=== PATIENT | female | born 1940 | race Hispanic/Latino ===

== ENCOUNTER 2016-12-29 22:42 | Inpatient (IN) | payer MEDICARE ==
[2016-12-29] MEDS ORDERED: Sodium Chloride 0.9% 1,000 ML IV STA (23:20)
--- NOTE | 2016-12-29 23:25 | ED PDOC ---
HPI: Trauma/Fall - HPI Time Seen by Provider: 12/29/16 22:50 Chief Complaint (Nursing): Trauma Chief Complaint (Provider): Fall History Per: Patient History/Exam Limitations: no limitations Onset/Duration Of Symptoms: Days (1week ago) Injury Occurred (Timing): Days Ago: (7) Severity: Moderate Associated Symptoms: Other (pt unsure of cause of fall) Additional Complaint(s): The patient is a 76 years old female, PMHx of left kidney removal, presents to the ED for evaluation s/p fall one week ago. Patient reports she was on her way to the bathroom and states she does not recall how she fell; patient reports she was on the floor of her bathroom for one week but she isnt sure if she was there for a longer period of time. She states she attempted to rest and gain strength in order to get up but was unable to do that so she proceeded to crawl to a phone and called 911 for help. She reports injuring her head but denies any headache at the moment. She also reports associated right shoulder pain. She denies any hip pain, chest pain, abdominal pain, nausea, vomiting, diarrhea and fever. She currently offers no additional medical complaints. PCP: None provided Past Medical History Reviewed: Historical Data, Nursing Documentation, Vital Signs Vital Signs: Last Vital Signs Temp 98.8 F 12/29/16 22:45 Pulse 89 12/29/16 22:45 Resp 20 12/29/16 22:45 BP 167/111 H 12/29/16 22:45 Pulse Ox 97 12/29/16 22:45 - Medical History PMH: No Chronic Diseases - Surgical History Other surgeries: Left kidney removal - Family History Family History: States: Unknown Family Hx - Living Arrangements Living Arrangements: Alone - Social History Current smoker - smoking cessation education provided: No Alcohol: None Drugs: Denies - Home Medications Home Medications: Ambulatory Orders Medication Instructions Recorded No Known Home Med 12/29/16 - Allergies Allergies/Adverse Reactions: Allergies Allergy/AdvReac Type Severity Reaction Status Date / Time No Known Allergies Allergy Verified 12/29/16 22:48 Review of Systems ROS Statement: Except As Marked, All Systems Reviewed And Found Negative Constitutional: Negative for: Fever Cardiovascular: Negative for: Chest Pain Gastrointestinal: Negative for: Nausea, Vomiting, Abdominal Pain, Diarrhea Musculoskeletal: Positive for: Shoulder Pain (right) Neurological: Negative for: Headache Physical Exam - Reviewed Nursing Documentation Reviewed: Yes Vital Signs Reviewed: Yes - Physical Exam Appears: Positive for: Well, Non-toxic, No Acute Distress Head Exam: Positive for: ATRAUMATIC, NORMAL INSPECTION, NORMOCEPHALIC Skin: Positive for: Normal Color, Warm, Dry (dry mucus membranes) Eye Exam: Positive for: Normal appearance, EOMI, PERRL ENT: Positive for: Normal ENT Inspection Neck: Positive for: Normal, Supple Cardiovascular/Chest: Positive for: Regular Rate, Rhythm Respiratory: Positive for: Normal Breath Sounds. Negative for: Respiratory Distress Gastrointestinal/Abdominal: Positive for: Normal Exam, Soft. Negative for: Tenderness Back: Positive for: Other (redness noted to midline sacrum and right gluteus; ecchymosis noted on right shoulder) Extremity: Positive for: Normal ROM. Negative for: Deformity, Swelling Neurologic/Psych: Positive for: Alert, Oriented. Negative for: Motor/Sensory Deficits - Laboratory Results Result Diagrams: 12/29/16 23:36 12/29/16 23:36 - ECG ECG: Positive for: Interpreted By Me, Viewed By Wi ECG Rhythm: Positive for: Normal QRS, Normal ST Segment, Sinus Rhythm. Negative for: ST/T Changes Rate: 65 O2 Sat by Pulse Oximetry: 97 (RA) Pulse Ox Interpretation: Normal - Radiology X-Ray: Interpreted by Me, Viewed By Wi X-Ray Interpretation: No Acute Disease - Other Rad CXR X-Ray: Interpreted by Me, Viewed By Wi X-Ray Interpretation: No acute findings Pelvis X-Ray: Interpreted by Wi, Viewed By Wi X-Ray Interpretation: no acute findings Medical Decision Making Medical Decision Making: Time: 2309 Differential: r/o dehydration, rhabdomyosis, intercranial bleeding Impression: Syncope, head injury Plan: * CT C-Spine * CT Head * Bloodwork * CXR * Urinalysis * IV Fluids Time: 1219 CT Head FINDINGS: The ventricles are dilated. The right lateral ventricle measures 3 cm in diameter and the left lateral ventricle measures 3.4 cm. The third ventricle measures 2.2 cm. I suspect this is a chronic finding.the rivers-white matter differentiation is preserved. If there are prior studies, I would be happy to correlate them. No intracranial hemorrhage. No extra axial collections. No intracranial edema. No fluid in the sinuses or mastoid air cells. No depressed fractures. IMPRESSION: No acute intracranial injury. Time: [address] Constantino who will admit the patient to his service. Time: 1235 CT C-Spine FINDINGS: There are degenerative changes in the osseous structures.Osteophyte formation and articular facet joint hypertrophy is present. The vertebral bodies and facet joints are well aligned. The vertebral body height is well maintained. No subluxation. No fractures. There is a round 1.4 cm calcification along the lateral aspect of the left thyroid. It does not appear associated with the adjacent vasculature. Appearance suggests benignity. IMPRESSION: No acute injury. Scribe Attestation: Documented by Evonne Longoria acting as a scribe for Glenys Cox MD. Provider Attestation: All medical record entries made by the Scribe were at my direction and personally dictated by me. I have reviewed the chart and agree that the record accurately reflects my personal performance of the history, physical exam, medical decision making, and the department course for this patient. I have also personally directed, reviewed, and agree with the discharge instructions and disposition. Disposition - Clinical Impression Clinical Impression: Fall, Syncope, Dehydration, Rhabdomyolysis - Patient ED Disposition Is Patient to be Admitted: Yes Discussed With DrMiles: Cameron Constantino Doctor Will See Patient In The: Hospital Counseled Patient/Family Regarding: Studies Performed, Diagnosis - Disposition Disposition Time: 00:24 Condition: FAIR - Pt Status Changed To: Hospital Disposition Of: Inpatient - Admit Certification Admit to Inpatient:: After my assessment, the patient will require hospitalization for at least two midnights. This is because of the severity of symptoms shown, intensity of services needed, and/or the medical risk in this patient being treated as an outpatient. - POA Present On Arrival: Falls Or Trauma
[2016-12-29 23:39] LABS: BASO # 0.1 K/uL (0.0-0.2); EOS # 0.2 K/uL (0.0-0.7); EOS % 1.5 % (0.0-4.0); HEMOGLOBIN 13.2 g/dL (12.0-16.0); LYMPH # 1.9 K/uL (1.0-4.3); LYMPH % 15.4 % (20.0-40.0); MEAN CELL VOLUME 84.5 fl (81.0-99.0); MEAN CORPUSCULAR HEMOGLOBIN 27.3 pg (27.0-31.0); MEAN CORPUSCULAR HGB CONC 32.3 g/dL (33.0-37.0); MEAN PLATELET VOLUME 7.8 fl (7.2-11.7); MONO # 0.9 K/uL (0.0-0.8); MONO % 7.5 % (0.0-10.0); NEUT % 74.6 % (50.0-75.0); NRBC % 0.1 % (0.0-0.0); RBC 4.85 Mil/uL (3.80-5.20); RED CELL DISTRIBUTION WIDTH 14.9 % (11.5-14.5)
[2016-12-29 23:53] LABS: ALB/GLOB RATIO 0.9 (1.0-2.1); ALBUMIN 4.2 g/dL (3.5-5.0); ALT/SGPT 53 U/L (9-52); AST/SGOT 71 U/L (14-36); BLOOD UREA NITROGEN 48 mg/dl (7-17); CALCIUM 9.6 mg/dL (8.4-10.2); GFR AFRICAN-AMERICAN > 60; GFR NON-AFRICAN AMERICAN > 60
--- NOTE | 2016-12-30 00:13 | CT ---
EXAM: CT Head Without Intravenous Contrast CLINICAL HISTORY: 76 years old, female; Pain; Headache; Headache not specified; Additional info: Head injury TECHNIQUE: Axial computed tomography images of the head/brain without intravenous contrast. This CT exam was performed using one or more of the following dose reduction techniques: automated exposure control, adjustment of the mA and/or kV according to patient size, and/or use of iterative reconstruction technique. Coronal and sagittal reformatted images were created and reviewed. EXAM DATE/TIME: 12/29/2016 11:19 PM COMPARISON: No relevant prior studies available. FINDINGS: The ventricles are dilated. The right lateral ventricle measures 3 cm in diameter and the left lateral ventricle measures 3.4 cm. The third ventricle measures 2.2 cm. I suspect this is a chronic finding.the rivers-white matter differentiation is preserved. If there are prior studies, I would be happy to correlate them. No intracranial hemorrhage. No extra axial collections. No intracranial edema. No fluid in the sinuses or mastoid air cells. No depressed fractures. IMPRESSION: No acute intracranial injury.
--- NOTE | 2016-12-30 00:29 | CT ---
EXAM: CT Cervical Spine Without Intravenous Contrast CLINICAL HISTORY: 76 years old, female; Pain; Neck pain TECHNIQUE: Axial computed tomography images of the cervical spine without intravenous contrast. This CT exam was performed using one or more of the following dose reduction techniques: automated exposure control, adjustment of the mA and/or kV according to patient size, and/or use of iterative reconstruction technique. Coronal and sagittal reformatted images were created and reviewed. EXAM DATE/TIME: 12/29/2016 11:19 PM COMPARISON: No relevant prior studies available. FINDINGS: There are degenerative changes in the osseous structures.Osteophyte formation and articular facet joint hypertrophy is present. The vertebral bodies and facet joints are well aligned. The vertebral body height is well maintained. No subluxation. No fractures. There is a round 1.4 cm calcification along the lateral aspect of the left thyroid. It does not appear associated with the adjacent vasculature. Appearance suggests benignity. IMPRESSION: No acute injury.
--- NOTE | 2016-12-30 10:43 | CARD ---
APPROVED REPORT EKG Measurement Heart [id number] <Conclusion> Normal sinus rhythm Normal ECG
[2016-12-30] MEDS: Enoxaparin 40 mg Syringe SC SCH (11:53)
--- NOTE | 2016-12-30 12:13 | RAD ---
PROCEDURE: CHEST RADIOGRAPH, 1 VIEW HISTORY: fall COMPARISON: Focal None available. FINDINGS: LUNGS: Clear. PLEURA: No pneumothorax or pleural fluid seen. CARDIOVASCULAR: Normal. OSSEOUS STRUCTURES: Minor multilevel degenerative spondylosis of the thoracic spine. There also appears to be some mild dextroscoliosis centered at thoracolumbar junction. . Note also made of mild degenerative changes of both shoulder girdles right greater than left. VISUALIZED UPPER ABDOMEN: No gross upper abdominal abnormality seen. OTHER FINDINGS: None. IMPRESSION: No active disease.
--- NOTE | 2016-12-30 12:54 | RAD ---
PROCEDURE: Pelvis dated 12/30/2016 HISTORY: Status post fall COMPARISON: No prior FINDINGS: Current study reveals no definitive radiographic evidence of acute displaced fracture nor dislocation. Both femoral heads are appropriately located within the respective acetabula. Arthritic changes both hip joints right greater than left. If symptoms persist or occult fracture suspected clinically recommend followup CT scan. Questionable bilateral laminectomy defect L5 level. Impression: No definitive evidence of acute displaced fracture nor dislocation. If symptoms persist or occult fracture suspected clinically recommend follow-up CT scan of the pelvis. Arthritic changes both hip joints right greater than left. . . Questionable bilateral laminectomy defect L5 level. Note this report was placed in PA review folder for followup
--- NOTE | 2016-12-30 12:57 | CON ---
DATE: 12/30/2016 CHIEF COMPLAINT: Status post syncope. HISTORY OF PRESENT ILLNESS: This is a 76-year-old woman with a past medical history of left kidney r emoval, history of chronic kidney disease, hypertension, apparently was on her way to the bathroom an d fell and does not recall how. She was on the floor for about a week, ended up in rhabdo and procee ded to the phone and called 911 and came to the hospital. She denied any headaches at this time, no loss of consciousness. She does not remember how she fell. She said she has been dehydrated and has not been drinking enough fluids throughout the week. Currently, she seems mildly deconditioned, but otherwise moving all extremities. No focal neurological signs. CAT scan of the head showed no acut e intracranial abnormality. PAST MEDICAL HISTORY: Chronic kidney disease and left kidney removal, hypertension. REVIEW OF SYSTEMS: A 14-point review of systems is negative except the HPI. ALLERGIES: No known drug allergies. SOCIAL HISTORY: No illicit drug use, smoking, or ETOH abuse. FAMILY HISTORY: Noncontributory. PHYSICAL EXAMINATION: VITAL SIGNS: Temperature 97.9, pulse of 87, blood pressure 159/78, respiratory rate 18, oxygen satur ation 97% via room air. GENERAL: The patient is sitting up in bed in no acute distress. HEENT: Atraumatic, normocephalic. PERRLA. Extraocular muscles intact. NECK: Supple, no JVD, no adenopathy noted. LUNGS: Clear to auscultation. No adventitious sounds. HEART: S1, S2, normal rate and rhythm. No murmurs, rubs, or gallops. ABDOMEN: Soft, nontender, nondistended. Bowel sounds are present. EXTREMITIES: No clubbing, no cyanosis. Peripheral pulses 2+ felt bilaterally. NEUROLOGIC: The patient is alert, oriented to person, place, month and year. Speech is fluent, with out any errors. Cranial nerves II through XII are intact. MOTOR: Moves all extremities equally. No pronator drift seen. DEEP TENDON REFLEXES: DTRs 2+ throughout and 1 at the ankles. COORDINATION: Lqodpr-ey-cmmg intact. GAIT: Deferred for now. LABORATORIES: Sodium 148, potassium 4.9, chloride of 112, carbon dioxide 20, BUN of 48, creatinine 0 .9, random glucose is 93. B12 is 42. ASSESSMENT AND PLAN: A 76-year-old woman with history of left kidney removal, history of chronic kid raleigh disease, hypertension, had a questionable syncopal event while on her way to the bathroom, was on the floor and had to crawl down, was on the floor for a prolonged time, had mild rhabdomyolysis, lik hasmukh secondary to dehydration. Likely, her syncopal event could be secondary to transient cerebral hy poperfusion to the brain from possible dehydration and is also deconditioned. At this time, recommend : 1. Physical therapy assessment. 2. Hydrate the patient. 3. Continue with current present medical management. No further neurological workup needed at this time. This is not a seizure. Anton Remy MD cc: [id number] TT: 12/30/2016 12:56:07 Confirmation # [id number] Dictation # [id number] shira
--- NOTE | 2016-12-30 14:12 | HP ---
CHIEF COMPLAINT: Was on the bathroom floor for more than a week. HISTORY OF PRESENT ILLNESS: This is a 76-year-old female without significant past medical history who is not routinely followed up by a primary care physician, who woke up on the bathroom floor and, according to patient, she was on the bathroom floor for about a week, or at least a week or maybe longer. So , the patient was brought to Emergency Room and was admitted for further management. The patient does not remember how she ended up in the bathroom floor. REVIEW OF SYSTEMS: Negative for headache, dizziness, syncope, loss of consciousness, chest pain, shortness of breath, nausea, vomiting, diarrhea, constipation, although patient did wake up on the bathroom floor and does not remember the event, so syncope is possibly. PAST MEDICAL HISTORY: Significant for kidney cancer. PAST SURGICAL HISTORY: Remarkable for removal of kidney cancer in 2004. SOCIAL HISTORY: The patient was a smoker in the past, but gave it up a long time ago. The patient is currently a nonsmoker, nondrinker, no substance abuse. MEDICATIONS: The patient is not on any medications. ALLERGIES: The patient is not allergic to any medication. FAMILY HISTORY: Noncontributory. PHYSICAL EXAMINATION: GENERAL: Well-built, well-nourished 76-year-old female in no acute distress. VITAL SIGNS: Temperature 98.8, pulse 65, respirations 15, blood saturation 97% , blood pressure is 134/82, no orthostatic changes. The patient's blood pressure on admission was 167/111. HEENT: Pupils reacting to light. NECK: No JVD, no thyromegaly, no lymphadenopathy, no nystagmus. Normocephalic , atraumatic skull. HEART: S1, S2 normal, regular. No significant murmur, gallop, or rub is heard. LUNGS: Shows good bilateral air entry. No rales or rhonchi. ABDOMEN: Soft, nontender, no organomegaly, no fluid. Bowel sounds are plus. EXTREMITIES: No edema, no calf swelling, no tenderness, no acute ischemia. CENTRAL NERVOUS SYSTEM: The patient is alert, awake, oriented x 3. There is no sign of any acute gross focal motor or sensory neurological deficit at this time. DIAGNOSTIC DATA: Available diagnostic data reviewed. Telemetry monitoring does not reveal significant arrhythmia. WBC 12, hemoglobin 13.8, hematocrit 41 , platelets 266. Sodium 140, potassium 4.9, chloride 112, bicarbonate 20, BUN of 48, creatinine 0.9. SMA-12 is unremarkable except AST of 73, ALT of 53 and CPK is 908. ADMITTING IMPRESSION: 1. Syncope. 2. Prerenal azotemia. 3. Rhabdomyolsis. 4. History of kidney cancer. 5. Hypertension. PLAN: As ordered. Case and plan discussed with patient. Cameron Constantino MD cc: [id number] TT: 12/30/2016 14:11:31 ln MTDByron
[2016-12-30 20:46] LABS: SQUAMOUS EPITHIAL < 1 /hpf (0-5); URINE BILIRUBIN NEGATIVE (NEGATIVE); URINE BLOOD NEGATIVE (NEGATIVE); URINE CLARITY CLEAR (Clear); URINE COLOR YELLOW (YELLOW); URINE GLUCOSE (UA) NEG (Normal); URINE LEUKOCYTE ESTERASE SMALL Leu/uL (Negative); URINE NITRATE NEGATIVE (NEGATIVE); URINE PROTEIN NEGATIVE (NEGATIVE); URINE UROBILINOGEN 0.2-1.0 mg/dL (0.2-1.0)
--- NOTE | 2016-12-31 00:33 | CON ---
DATE: 12/30/2016 REASON FOR CONSULTATION: Syncope versus seizures. HISTORY OF PRESENT ILLNESS: The patient is a 76-year-old female who lives by herself, who is unaware of any prior cardiac history and at home. She presented because of a fall in the bathroom. T he patient described that she found herself on the bathroom floor on her back, but does not recall wh en she left her bed to go to the bathroom. The patient claims to have stayed on the bathroom floor f or probably more than 1 day, because went dark, and when it was light, she could not pull herself out and the patient was not clear about who activated EMS. At one time, she states she was able to do i t and the other time she states her friends called the police for her. The patient does not recall a ny urinary incontinence or tongue biting. The patient denies any chest pain and is unaware of any hi story of heart attack in the past or stroke. The patient denies any speech difficulty. SOCIAL HISTORY: The patient is a former smoker. She lives by herself. She has no family members, b ut she has friends who live out of state. MEDICATIONS: Lovenox 40 mg subcutaneously daily, Norvasc 5 mg once a day. REVIEW OF SYSTEMS: No fever or chills. No vomiting or diarrhea. PHYSICAL EXAMINATION: GENERAL: The patient is an elderly female who does not appear to be in any distress. VITAL SIGNS: Blood pressure 127/67, heart rate 82, temperature 98.5, respirations 18. HEENT: No pallor or icterus. NECK: No JVD. CHEST: Clear. HEART: S1, S2 regular. EXTREMITIES: No edema. EKG revealed normal sinus rhythm. LABORATORY DATA: CBC revealed WBC 12, hemoglobin , hematocrit 41, platelet count 366,000. SMA- 7: Sodium 148, potassium 4.9, chloride 112, CO2 of 20, glucose 93, BUN 48, creatinine 0.9. CP K is 908. One set of troponin is negative. Liver enzymes are mildly elevated. Head CT scan without contrast: No acute findings. Pelvic x-ray: No definite evidence of acute displaced fracture, no d islocation. Cervical spine CT scan: No acute injury. ASSESSMENT: 1. Status post fall, syncope versus seizures. 2. Dehydration and prerenal azotemia. 3. Hypertension. 4. Rule out right shoulder injury. The patient has bruises and ecchymosis overlying the right shoul jennifer posteriorly. RECOMMENDATIONS: Continue Norvasc at 5 mg once a day, Lovenox at 40 mg once a day. Optimize hydrati on. Obtain an echocardiogram and x-ray of the right shoulder. Brigido Greene MD cc: [id number] TT: 12/31/2016 00:32:27 Confirmation # [id number] Dictation # [id number] mn
[2016-12-31 03:08] LABS: BARBITURATES, UR NEGATIVE (NEGATIVE); BENZODIAZEPINES, UR NEGATIVE (NEGATIVE); OPIATES, UR NEGATIVE (NEGATIVE); PHENCYCLIDINE, UR NEGATIVE (NEGATIVE)
[2016-12-31 06:02] LABS: MEAN CELL VOLUME 84.4 fl (81.0-99.0); MEAN CORPUSCULAR HEMOGLOBIN 27.3 pg (27.0-31.0); MEAN CORPUSCULAR HGB CONC 32.3 g/dL (33.0-37.0); RBC 4.41 Mil/uL (3.80-5.20); RED CELL DISTRIBUTION WIDTH 14.9 % (11.5-14.5); WHITE BLOOD COUNT 8.5 K/uL (4.8-10.8)
[2016-12-31 06:15] LABS: ALBUMIN 3.4 g/dL (3.5-5.0); ALT/SGPT 49 U/L (9-52); AST/SGOT 29 U/L (14-36); BLOOD UREA NITROGEN 39 mg/dl (7-17); CALCIUM 8.8 mg/dL (8.4-10.2); GFR AFRICAN-AMERICAN > 60; GFR NON-AFRICAN AMERICAN > 60
[2016-12-31] MEDS: Enoxaparin 40 mg Syringe SC SCH (09:17)
--- NOTE | 2016-12-31 10:46 | RAD ---
PROCEDURE: Bilateral shoulders dated 12/31/2016 HISTORY: Status post fall COMPARISON: Correlation made with radiographs of the chest 12/30/2016 which partially imaged both shoulders FINDINGS: Right shoulder findings: The current study reveals no evidence of acute displaced fracture nor dislocation. The osseous structures grossly intact. 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 Left shoulder findings: No evidence of acute displaced fracture nor dislocation. The osseous structures intact. Mild degenerative changes both left acromioclavicular and glenohumeral joints. Note is made of an approximately 18.2 mm x 15.3 mm rounded calcification overlying the left upper mediastinum adjacent to the left lateral margin of the trachea and superior aspect of the left clavicular head. This could represent a calcified thyroid nodule. Recommend followup thyroid ultrasound. Impression: No evidence of acute displaced fracture nor dislocation. DJD both shoulder girdles as described. There is an approximately 18.2 mm x 15.3 mm rounded calcification overlying the upper mediastinum adjacent to the left lateral margin of the trachea and superior tip of the left clavicular head the; rule out calcification within the left thyroid gland. Consider followup thyroid ultrasound for further evaluation.
--- NOTE | 2016-12-31 10:49 | PN ---
DATE: 12/31/2016 The patient is seen and examined. Interim events noted. Consults noted and appreciated. Cardiology and neurology consult and intervention noted and appreciated. The patient remains in progressive care unit on telemetry monitoring ____. Denies any specific complaint. No chest pain, no shortness of breath. ____. PHYSICAL EXAMINATION: GENERAL: The patient is in no acute distress. VITAL SIGNS: Stable. HEART: S1, S2, normal regular. LUNGS: Good bilateral air exchange. ABDOMEN: Soft, nontender. EXTREMITIES: No edema. No calf swelling, no tenderness. No acute ischemia. CENTRAL NERVOUS SYSTEM: Essentially unchanged. DIAGNOSTIC DATA: Available diagnostic data reviewed. Pelvic x-ray reports no specific fracture found. If clinical consult ____, recommended CAT scan ____ no clinical sign of any acute fracture, then the patient does not need any CAT scan. Telemetry monitoring does not reveal significant arrhythmia. Overall, the patient's general condition is stable and improving. BUN and creatinine remain elevated. PLAN: As ordered. Case and plan discussed with the patient. Cameron Constantino MD cc: [id number] TT: 12/31/2016 10:48:35 Confirmation # [id number] Dictation # [id number] jn BA
--- NOTE | 2016-12-31 17:28 | PN ---
DATE: 12/31/2016 SUBJECTIVE: The patient denies any dizziness at this time. She denies any chest pain. PHYSICAL EXAMINATION: VITAL SIGNS: Blood pressure 147/83, heart rate 76, temperature 98.2, respirations 18. HEENT: Dry mucous membranes. NECK: No JVD. CHEST: Clear. HEART: S1, S2 regular. EXTREMITIES: No edema. LABORATORIES: Hemoglobin and hematocrit 12 and 37.2, white count and platelet count are within karina l limits. Today's SMA-7 is within normal limits except for BUN of 39. A total of 4 troponins are no t elevated. TSH level is within normal limits. Left shoulder x-ray: No evidence of acute displaced fracture nor dislocation. There is an approximately 18 mm x 15 mm rounded calcification overlying t he upper mediastinum adjacent to the left lateral margin of the trachea. Rule out calcification with in the thyroid gland. Consider follow up thyroid ultrasound. ASSESSMENT: 1. Single episode for the seizure. 2. Dehydration. 3. Rule out thyroid calcification. RECOMMENDATIONS: Continue current Lovenox ____ mg once a day, Norvasc 5 mg once a day. Obtain thyro id ultrasound. Echocardiographic study is pending. Brigido Greene MD cc: [id number] TT: 12/31/2016 17:27:50 Confirmation # [id number] Dictation # [id number]
[2017-01-01 05:26] LABS: HEMOGLOBIN 12.1 g/dL (12.0-16.0); MEAN CELL VOLUME 83.5 fl (81.0-99.0); MEAN CORPUSCULAR HEMOGLOBIN 26.9 pg (27.0-31.0); MEAN CORPUSCULAR HGB CONC 32.2 g/dL (33.0-37.0); RBC 4.5 Mil/uL (3.80-5.20); RED CELL DISTRIBUTION WIDTH 14.8 % (11.5-14.5); WHITE BLOOD COUNT 7.2 K/uL (4.8-10.8)
[2017-01-01 06:12] LABS: ALBUMIN 3.4 g/dL (3.5-5.0); ALT/SGPT 48 U/L (9-52); AST/SGOT 26 U/L (14-36); BLOOD UREA NITROGEN 32 mg/dl (7-17); CALCIUM 8.9 mg/dL (8.4-10.2); GFR AFRICAN-AMERICAN > 60; GFR NON-AFRICAN AMERICAN > 60
[2017-01-01] MEDS: Enoxaparin 40 mg Syringe SC SCH (09:52)
--- NOTE | 2017-01-01 14:32 | PQF GENQUE ---
Dr. Constantino, Etiology of Syncope if known after work up completed? OR: Unable to determine H and P:Impression: 1. Syncope. 2. Prerenal azotemia. 3. Rhabdomyolsis. 4. History of kidney cancer. 5. HTN Neurology: Likely, her syncopal event could be secondary to transient cerebral hypoperfusion to the brain from possible dehydration and is also deconditioned-- -this is not a seizure Cardiology note: 1. Status post fall, syncope versus seizures2. Dehydration and prerenal azotemia. 3. Hypertension. 4. Rule out right shoulder injury. The patient has bruises and ecchymosis overlying the right shoulder posteriorly and follow -up note: Assessment: 1. Single episode for the seizure. 2. Dehydration. 3. Rule out thyroid calcification. This form is a permanent part of the medical record Clarification of your documentation is requested to better reflect the severity of illness and intensity of treatment of your patient. Indicators present [] Specify: [] [] Specify: [] [] Specify: [] [] Specify: [] Location in the medical record that reflects the above clinical findings: [] Treatment Provided: [] PHYSICIAN'S RESPONSE Based on your medical judgment of the clinical indicators outlined above please clarify the following: [] Practitioner response [] If unable to determine, please check the box, sign and date. Present On Admission (POA) Indicator: [] Present at the time of admission [] Not present at the time of admission [] Clinically Undetermined In responding to this query, please exercise your independent professional judgment. The fact that a question is asked does not imply that any particular answer is desired or expected. Thank you for your clarification on this documentation. If you have any questions please call. * Thank you, Preeti Martinez RN BSN ext. #[phone] MTDD
--- NOTE | 2017-01-01 17:36 | PN ---
DATE: 01/01/2017 The patient denies any chest pain. She is still experiencing dizziness and she has used a walker to move around. She refuses blood pressure medications. PHYSICAL EXAMINATION: VITAL SIGNS: Blood pressure 160/77, heart rate 69, temperature 98.1, respiration 18. HEENT: Normocephalic. CHEST: Clear. HEART: S1, S2 regular. EXTREMITIES: No edema. LABORATORIES: Today's hemoglobin and hematocrit 12.1 and 37.5. White count and platelet count are w ithin normal limits. Today's potassium level is 5.4, BUN is 32. Thyroid ultrasound was performed, b ut the report is still pending. ASSESSMENT: 1. Status post fall, syncope versus seizure activity. 2. Improved dehydration. 3. Thyroid calcification noted. 4. Hyperkalemia. RECOMMENDATIONS: The patient has refused both amlodipine and Lovenox. Continue with current telemet ry monitoring and obtain a BMP in the a.m. as a followup for potassium level. Brigido Greene MD cc: [id number] TT: 01/01/2017 17:35:27 Confirmation # [id number] Dictation # [id number] aditya
--- NOTE | 2017-01-01 17:55 | US ---
HISTORY: abn calcification TECHNIQUE: Sonographic evaluation of the thyroid gland. COMPARISON: Comparison is made to the previous CT of the cervical spine dated 12/29/2016 FINDINGS: RIGHT LOBE: Measures 4 x 1.6 x 1 cm. Heterogeneous echotexture of the right thyroid lobe seen. Nodules: There is complex nodules seen at the mid right thyroid lobe measures 0.5 x0.5 x 0.4 centimeter. There is also to millimeter slightly hypoechoic nodule at the right thyroid lobe. LEFT LOBE: Measures 4.2 x 1.5 x 0.9 cm. Slightly heterogeneous echotexture. Nodules: There is a calcified nodule at the left thyroid lobe measures 1.3 x 1.1 x 1.2 centimeter. There is also hypoechoic nodule at the mid left lobe measures 0.2 x 0.2 centimeter. ISTHMUS: Measures 1.9 cm. Normal echotexture and flow. Nodules: None OTHER FINDINGS: None . IMPRESSION: Heterogeneous thyroid gland. Thyroid nodules seen in both thyroid lobes. Calcified thyroid at the left lobe measures 1.3 centimeter. Interval follow-up reassessment by ultrasound is suggested.
--- NOTE | 2017-01-01 18:10 | PN ---
DATE: 01/01/2017 HISTORY OF PRESENT ILLNESS: The patient seen and examined. Interim events noted. Consults noted an d appreciated. Cardiology followup and intervention noted and appreciated. The patient remains in p rogressive care unit on telemetry monitoring. Denies any specific complaint other than of arthritic joint pain. No chest pain, no shortness of breath, no dizziness or loss of consciousness. PHYSICAL EXAMINATION: GENERAL: The patient is in no acute distress. VITAL SIGNS: Stable. Temperature 97.7, pulse 59, respiration 18, blood pressure 132/62, saturation 96%. HEART: S1, S2 normal, regular. LUNGS: Good bilateral air exchange. ABDOMEN: Soft, nontender. EXTREMITIES: No edema, no calf swelling, no tenderness, no acute ischemia, no sign of acute neurovas cular deficit . No sign of fracture or dislocation. CENTRAL NERVOUS SYSTEM: Essentially unchanged. DIAGNOSTIC DATA: Available diagnostic data reviewed. WBC 7.2, hemoglobin 12.1, hematocrit 37.5, john telet 292. Sodium 154, potassium 4.3, chloride 105, bicarbonate 29, BUN 32, creatinine 0.9. SMA-12 is unremarkable. Telemetry monitoring does not reveal significant arrhythmia. ASSESSMENT: Overall, patient's general medical condition is stable and improving. PLAN: As ordered. Cameron Constantino MD cc: [id number] TT: 01/01/2017 18:09:13 Confirmation # [id number] Dictation # [id number] dn
--- NOTE | 2017-01-01 22:32 | CARD ---
APPROVED REPORT EXAM: Two-dimensional and M-mode echocardiogram with Doppler and color Doppler. Other Information Quality : AverageRhythm : NSR INDICATION Syncope 2D DIMENSIONS IVSd0.88 (0.7-1.1cm)LVDd4.10 (3.9-5.9cm) LVOT Diameter2.05 (1.8-2.4cm)PWd0.82 (0.7-1.1cm) IVSs1.20 (0.8-1.2cm)LVDs2.94 (2.5-4.0cm) FS (%) 28.2 %PWs1.25 (0.8-1.2cm) LVEF (%)55.0 (>50%) M-Mode DIMENSIONS Left Atrium (MM)2.94 (2.5-4.0cm)Aortic Root3.24 (2.2-3.7cm) Aortic Cusp Exc.1.50 (1.5-2.0cm) Aortic Valve AoV Peak Mhzpamlt304.9cm/sAoV VTI43.8cmAO Peak GR.22mmHg LVOT Peak Ztbttsff217.1cm/sLVOT VTI2.85cmAO Mean GR.13mmHg STEVE (VMAX)0.63xv5ZDR (VTI)0.12cm2 Mitral Valve MV E Bpiiumzx47.1cm/sMV DECEL SKQL550toWI A Vrqjqksz144.5cm/s MV XXN326rxB/A ratio0.4MVA (PHT)1.70cm2 TDI E/Lateral E'0.0E/Medial E'0.0 LEFT VENTRICLE The left ventricle is normal size. There is mild concentric left ventricular hypertrophy. The left ventricular function is normal. The left ventricular ejection fraction is within the normal range. There is normal LV segmental wall motion. Transmitral Doppler flow pattern is Grade I-abnormal relaxation pattern. RIGHT VENTRICLE The right ventricle is normal size. There is normal right ventricular wall thickness. The right ventricular systolic function is normal. ATRIA The left atrium size is normal. The right atrium size is normal. AORTIC VALVE The aortic valve is moderately to severely sclerotic. There is mild to moderate aortic regurgitation. There is mild valvular aortic stenosis. MITRAL VALVE The mitral valve is moderately thickened. There is no mitral valve stenosis. There is no mitral valve regurgitation noted. TRICUSPID VALVE The tricuspid valve is normal in structure and function. There is no tricuspid valve regurgitation noted. PULMONIC VALVE The pulmonary valve is normal in structure and function. There is no pulmonic valvular regurgitation. GREAT VESSELS The aortic root displays moderate sclerocalcific changes of the aortic root. The IVC is normal in size and collapses >50% with inspiration. PERICARDIAL EFFUSION There is a trace loculated anterior pericardial effusion. <Conclusion> The left ventricle is normal size. There is mild concentric left ventricular hypertrophy. The left ventricular function is normal. The left ventricular ejection fraction is within the normal range. There is normal LV segmental wall motion. Transmitral Doppler flow pattern is Grade I-abnormal relaxation pattern. The aortic valve is moderately to severely sclerotic. There is mild valvular aortic stenosis. There is mild to moderate aortic regurgitation.
[2017-01-02 06:35] LABS: MEAN CELL VOLUME 84.1 fl (81.0-99.0); MEAN CORPUSCULAR HEMOGLOBIN 27.2 pg (27.0-31.0); MEAN CORPUSCULAR HGB CONC 32.4 g/dL (33.0-37.0); RBC 4.42 Mil/uL (3.80-5.20); RED CELL DISTRIBUTION WIDTH 14.6 % (11.5-14.5); WHITE BLOOD COUNT 8.5 K/uL (4.8-10.8)
--- NOTE | 2017-01-02 06:39 | CP.PCM.DIS ---
Provider - Provider Date of Admission: 12/30/16 00:24 Attending physician: Cameron Constantino MD Time Spent in preparation of Discharge (in minutes): 45 Hospital Course - Lab Results Lab Results: Most Recent Lab Values WBC 7.2 K/uL (4.8-10.8) 01/01/17 04:30 RBC 4.50 Mil/uL (3.80-5.20) 01/01/17 04:30 Hgb 12.1 g/dL (12.0-16.0) 01/01/17 04:30 Hct 37.5 % (34.0-47.0) 01/01/17 04:30 MCV 83.5 fl (81.0-99.0) 01/01/17 04:30 MCH 26.9 pg (27.0-31.0) L 01/01/17 04:30 MCHC 32.2 g/dL (33.0-37.0) L 01/01/17 04:30 RDW 14.8 % (11.5-14.5) H 01/01/17 04:30 Plt Count 292 K/uL (130-400) 01/01/17 04:30 MPV 7.8 fl (7.2-11.7) 12/29/16 23:36 Neut % (Auto) 74.6 % (50.0-75.0) 12/29/16 23:36 Lymph % (Auto) 15.4 % (20.0-40.0) L 12/29/16 23:36 [place] % (Auto) 7.5 % (0.0-10.0) 12/29/16 23:36 Eos % (Auto) 1.5 % (0.0-4.0) 12/29/16 23:36 Baso % (Auto) 1.0 % (0.0-2.0) 12/29/16 23:36 Neut # 9.0 K/uL (1.8-7.0) H 12/29/16 23:36 Lymph # 1.9 K/uL (1.0-4.3) 12/29/16 23:36 [place] # 0.9 K/uL (0.0-0.8) H 12/29/16 23:36 Eos # 0.2 K/uL (0.0-0.7) 12/29/16 23:36 Baso # 0.1 K/uL (0.0-0.2) 12/29/16 23:36 Sodium 142 mmol/l (132-148) 01/01/17 04:30 Potassium 4.3 MMOL/L (3.6-5.0) 01/01/17 17:37 Chloride 105 mmol/L (98-107) 01/01/17 04:30 Carbon Dioxide 29 mmol/L (22-30) 01/01/17 04:30 Anion Gap 13 (10-20) 01/01/17 04:30 BUN 32 mg/dl (7-17) H 01/01/17 04:30 Creatinine 0.9 mg/dL (0.7-1.2) 01/01/17 04:30 Est GFR ( Amer) > 60 01/01/17 04:30 Est GFR (Non-Af Amer) > 60 01/01/17 04:30 Random Glucose 95 mg/dL (65-105) 01/01/17 04:30 Calcium 8.9 mg/dL (8.4-10.2) 01/01/17 04:30 Total Bilirubin 0.2 mg/dl (0.2-1.3) 01/01/17 04:30 AST 26 U/L (14-36) 01/01/17 04:30 ALT 48 U/L (9-52) 01/01/17 04:30 Alkaline Phosphatase 68 U/L (38-126) 01/01/17 04:30 Total Creatine Kinase 196 U/L (30-135) H 12/31/16 05:30 Troponin I < 0.0120 ng/mL (0.00-0.120) 12/31/16 00:45 Total Protein 6.9 G/DL (6.3-8.2) 01/01/17 04:30 Albumin 3.4 g/dL (3.5-5.0) L 01/01/17 04:30 Globulin 3.5 gm/dL (2.2-3.9) 01/01/17 04:30 Albumin/Globulin Ratio 1.0 (1.0-2.1) 01/01/17 04:30 Vitamin B12 482 pg/mL (239-931) 12/30/16 07:22 TSH 3rd Generation 0.96 mIU/ML (0.46-4.68) 12/30/16 07:22 Urine Color Yellow (YELLOW) 12/30/16 20:10 Urine Clarity Clear (Clear) 12/30/16 20:10 Urine pH 5.0 (5.0-8.0) 12/30/16 20:10 Ur Specific Rowe 1.028 (1.003-1.030) 12/30/16 20:10 Urine Protein Negative mg/dL (NEGATIVE) 12/30/16 20:10 Urine Glucose (UA) Neg mg/dL (Normal) 12/30/16 20:10 Urine Ketones Negative mg/dL (NEGATIVE) 12/30/16 20:10 Urine Blood Negative (NEGATIVE) 12/30/16 20:10 Urine Nitrate Negative (NEGATIVE) 12/30/16 20:10 Urine Bilirubin Negative (NEGATIVE) 12/30/16 20:10 Urine Urobilinogen 0.2-1.0 mg/dL (0.2-1.0) 12/30/16 20:10 Ur Leukocyte Esterase Small Zohra/uL (Negative) 12/30/16 20:10 Urine RBC (Auto) < 1 /hpf (0-3) 12/30/16 20:10 Urine Microscopic WBC 8 /hpf (0-5) H 12/30/16 20:10 Ur Squamous Epith Cells < 1 /hpf (0-5) 12/30/16 20:10 Urine Opiates Screen Negative (NEGATIVE) 12/31/16 02:40 Urine Methadone Screen Negative (NEGATIVE) 12/31/16 02:40 Ur Barbiturates Screen Negative (NEGATIVE) 12/31/16 02:40 Ur Phencyclidine Scrn Negative (NEGATIVE) 12/31/16 02:40 Ur Amphetamines Screen Negative (NEGATIVE) 12/31/16 02:40 U Benzodiazepines Scrn Negative (NEGATIVE) 12/31/16 02:40 U Oth Cocaine Metabols Negative (NEGATIVE) 12/31/16 02:40 U Cannabinoids Screen Negative (NEGATIVE) 12/31/16 02:40 - Hospital Course Hospital Course: Patient seen and examined at bedside with attending. 76F admitted after fall presumed syncopal episode. Neurology (Dr Remy) and Cardiology (Dr Greene) ruled out respective etiologies and conclude secondary to dehydration and associated drop in BP. Patient is stable for transfer to TCU for further conditioning. Discharge Exam - Head Exam Head Exam: ATRAUMATIC, NORMAL INSPECTION, NORMOCEPHALIC - Eye Exam Eye Exam: EOMI, PERRL - Respiratory Exam Respiratory Exam: Clear to PA & Lateral, NORMAL BREATHING PATTERN. absent: Rales, Wheezes - Cardiovascular Exam Cardiovascular Exam: REGULAR RHYTHM. absent: JVD - GI/Abdominal Exam GI & Abdominal Exam: Normal Bowel Sounds, Soft. absent: Tenderness - Neurological Exam Neurological exam: Alert, Oriented x3 - Psychiatric Exam Psychiatric exam: Normal Affect, Normal Mood - Skin Skin Exam: Normal Color, Warm Discharge Plan - Follow Up Plan Condition: FAIR Disposition: HOME/ ROUTINE Patient education suggested?: Yes Instructions: Dehydration (DC), Syncope (DC), Syncope (GEN)
[2017-01-02 06:51] LABS: ALBUMIN 3.3 g/dL (3.5-5.0); ALT/SGPT 37 U/L (9-52); AST/SGOT 25 U/L (14-36); BLOOD UREA NITROGEN 29 mg/dl (7-17); CALCIUM 8.7 mg/dL (8.4-10.2); GFR AFRICAN-AMERICAN > 60; GFR NON-AFRICAN AMERICAN > 60
[2017-01-02 08:04] VITALS: TEMP 98.5
[2017-01-02] MEDS: Enoxaparin 40 mg Syringe SC SCH (08:45)
[2017-01-02 12:51] VITALS: BP 145/88; PULSE 72; RESP 18; O2SAT 95
== END 2017-01-02 13:04 | DRG 641 ==
LOC: H.ER 22:42 → H.ERHOLD 12-30 00:24 → H.TEL 12-30 02:41
PROVIDERS: ADMIT Internal Medicine; ATTEND Internal Medicine
DX: E86.0 Dehydration (principal); M62.82 Rhabdomyolysis; S09.90XA Unspecified injury of head, initial encounter; E87.5 Hyperkalemia; W18.30XA Fall on same level, unspecified, initial encounter; Z87.891 Personal history of nicotine dependence; M16.0 Bilateral primary osteoarthritis of hip; Z85.528 Personal history of other malignant neoplasm of kidney; R79.89 Other specified abnormal findings of blood chemistry; I10 Essential (primary) hypertension; M25.511 Pain in right shoulder; Y93.9 Activity, unspecified; Y92.002 Bathroom of unspecified non-institutional (private) residence as the place of occurrence of the external cause; Z90.5 Acquired absence of kidney

== ENCOUNTER 2017-01-02 11:56 | Inpatient (IN) | payer OTHER, MEDICARE ==
[2017-01-02 13:05] VITALS: BMI 22.6
[2017-01-02 14:39] VITALS: RESP 20
--- NOTE | 2017-01-03 09:41 | HP ---
CHIEF COMPLAINT: Transferred from medical floor for further optimization. HISTORY OF PRESENT ILLNESS: This is a 76-year-old female, known case of hypertension, but very poor medical followup, who was admitted to medical floor for dehydration and after finding on the floor fo r about 2 weeks. The patient was found grossly dehydrated and was admitted and was treated and patie nt's condition improved. The patient was transferred to transitional care unit for further optimizat ion of condition. At present, patient feels a little stronger. Appetite has improved. REVIEW OF SYSTEMS: Negative for headache, dizziness, syncope, loss of consciousness, chest pain, cecilia rtness of breath, nausea, vomiting, diarrhea, constipation, any new joint or extremity pain. All oth er organ systems unremarkable. PAST MEDICAL HISTORY: Significant for hypertension. PAST SURGICAL HISTORY: Unremarkable. PERSONAL HISTORY: The patient is currently a nonsmoker, nondrinker, no substance abuse. MEDICATIONS: The patient is not on any medication and patient is refusing medication for blood press ure and also for DVT prophylaxis . ALLERGIES: The patient is not allergic to any medication. FAMILY HISTORY: Noncontributory. PHYSICAL EXAMINATION: GENERAL: Well-built, fairly-nourished, elderly female, in no acute distress. VITAL SIGNS: Temperature afebrile, pulse 88, respiration 18, blood pressure 136/76. HEENT: Pupils reacting to light. No JVD, no thyromegaly, no lymphadenopathy, no nystagmus. Normoce phalic, atraumatic skull. HEART: S1, S2 normal, regular. No significant murmur, gallop or rub is heard. LUNGS: Shows good bilateral air entry. No rales or rhonchi. ABDOMEN: Soft, nontender, no organomegaly, no fluid. Bowel sounds are plus. EXTREMITIES: No edema, no calf swelling, no tenderness, no acute ischemia. CENTRAL NERVOUS SYSTEM: The patient is alert, awake, oriented x 3. There is no sign of any acute gr oss focal, motor or sensory neurological deficit. DIAGNOSTIC DATA: Available reviewed. ADMITTING IMPRESSION: Dehydration, hypertension, general deconditioning. PLAN: As ordered. Case and plan discussed with patient. Cameron Constantino MD cc: [id number] TT: 01/03/2017 09:40:47 en
--- NOTE | 2017-01-04 10:01 | PN ---
DATE: 01/04/2017 The patient seen and examined. Interim events noted. The patient remains in transitional care unit. The patient feels okay. No chest pain or shortness of breath. PHYSICAL EXAMINATION: GENERAL: The patient is in no acute distress. VITAL SIGNS: Stable. Physical exam is essentially unchanged. DIAGNOSTIC DATA: Available diagnostic data reviewed. Overall, the patient is medically stable. PLAN: As ordered. Cameron Constantino MD cc: [id number] TT: 01/04/2017 10:00:38 Confirmation # [id number] Dictation # [id number] tn
--- NOTE | 2017-01-05 10:12 | PN ---
DATE: 01/05/2017 The patient seen and examined. Interim events noted. The patient remains in transitional care unit. Feels okay. blood pressure medicine. No chest pain or shortness of breath. PHYSICAL EXAMINATION: GENERAL: The patient is in no acute distress. VITAL SIGNS: Stable. HEART: S1, S2 normal, regular. LUNGS: Good bilateral air exchange. ABDOMEN: Soft, nontender. EXTREMITIES: No calf swelling, no tenderness, no acute ischemia. CENTRAL NERVOUS SYSTEM: Essentially unchanged. DIAGNOSTIC DATA: Available reviewed. Overall, patient's general medical condition is stable. PLAN: As ordered. Cameron Constantino MD cc: [id number] TT: 01/05/2017 09:24:03 Confirmation # [id number] Dictation # [id number] en
--- NOTE | 2017-01-06 08:53 | PN ---
DATE: 01/06/2017 The patient seen and examined. Interim events noted. The patient remains in transitional care unit. The patient feels okay. No chest pain. No shortness of breath, no ____ complaint. PHYSICAL EXAMINATION: GENERAL: The patient is in no acute distress. VITAL SIGNS: Stable. HEART: S1, S2 normal, regular. LUNGS: Bilateral air exchange. ABDOMEN: Soft, nontender. EXTREMITIES: No edema, no calf swelling, no tenderness. No acute ischemia. CENTRAL NERVOUS SYSTEM: Essentially unchanged. DIAGNOSTIC DATA: Available diagnostic data reviewed. Overall, the patient's general medical condition is stable. PLAN: As ordered. Cameron Constantino MD cc: [id number] TT: 01/06/2017 08:52:22 Confirmation # [id number] Dictation # [id number] ks
--- NOTE | 2017-01-07 08:27 | PN ---
DATE: 01/07/2017 The patient seen and examined. Interim events noted. The patient remains in transitional care unit. The patient feels okay. No specific complaint. No chest pain or shortness of breath. The patient is slowly improving with physical therapy. PHYSICAL EXAMINATION: GENERAL: The patient is in no acute distress. VITAL SIGNS: Stable. HEART: S1, S2 normal, regular. LUNGS: Good bilateral air exchange. ABDOMEN: Soft, nontender. EXTREMITIES: No edema, no calf swelling, no tenderness, no acute ischemia. CENTRAL NERVOUS SYSTEM: Essentially unchanged. Overall, patient is clinically stable and improving with physical therapy. Blood pressure also is ge tting gentle control as patient ____. Overall, patient is stable. PLAN: As ordered. Cameron Constantino MD cc: [id number] TT: 01/07/2017 08:27:18 Confirmation # [id number] Dictation # [id number]
--- NOTE | 2017-01-08 09:28 | PN ---
DATE: 01/08/2017 The patient seen and examined. Interim events noted. The patient remains in transitional care unit. Feels okay. Denies any specific complaint. No chest pain, no shortness of breath. PHYSICAL EXAMINATION: GENERAL: The patient is in no acute distress. VITAL SIGNS: Stable, although blood pressure remains a little high of 160/78. HEART: S1, S2 normal, regular. LUNGS: Good bilateral air exchange. ABDOMEN: Soft, nontender. EXTREMITIES: No edema, no calf swelling, no tenderness, no acute ischemia. CENTRAL NERVOUS SYSTEM: Essentially unchanged. DIAGNOSTIC DATA: Available reviewed. Overall, patient is clinically stable. Blood pressure still remains high. PLAN: As ordered. Case and plan discussed with patient. Cameron Constantino MD cc: [id number] TT: 01/08/2017 09:27:12 Confirmation # [id number] Dictation # [id number] en
--- NOTE | 2017-01-09 15:42 | CP.PCM.PN ---
Subjective - Date & Time of Evaluation Date of Evaluation: 01/09/17 - Subjective Subjective: The patient seen and examined. Interim events noted. The patient remains in transitional care unit. Feels okay. Denies any specific complaint. No chest pain, no shortness of breath. PHYSICAL EXAMINATION: GENERAL: The patient is in no acute distress. VITAL SIGNS : Stable, although blood pressure remains a little high HEART: S1, S2 normal, regular. LUNGS: Good bilateral air exchange. ABDOMEN: Soft, nontender. EXTREMITIES: No edema, no calf swelling, no tenderness, no acute ischemia. CENTRAL NERVOUS SYSTEM: Essentially unchanged. DIAGNOSTIC DATA: Available reviewed. Overall, patient is clinically stable. Blood pressure still remains high. PLAN: As ordered. Case and plan discussed with patient. Objective - Vital Signs/Intake and Output Vital Signs (last 24 hours): Temp Pulse Resp BP Pulse Ox 96.6 F L 70 20 135/61 98 01/09/17 10:00 01/09/17 10:00 01/09/17 10:00 01/09/17 10:00 01/09/17 10:00 - Medications Medications: Current Medications Amlodipine Besylate (Norvasc) 10 mg PO DAILY PRACHI Last Admin: 01/09/17 09:03 Dose: 10 mg Assessment and Plan - Assessment and Plan (Free Text) Assessment: Patient was personally seen and examined by me in rounds with residents. Available labs and diagnostic data reviewed. Case, patient's condition and management plan discussed with residents in rounds. Agree with resident's progress note. Plan: As ordered.
--- NOTE | 2017-01-10 09:59 | CP.PCM.PN ---
Subjective - Date & Time of Evaluation Date of Evaluation: 01/10/17 Time of Evaluation: 07:00 - Subjective Subjective: The patient seen and examined. Interim events noted. The patient remains in transitional care unit. Feels okay. Denies any specific complaint. No chest pain, no shortness of breath. PHYSICAL EXAMINATION: GENERAL: The patient is in no acute distress. VITAL SIGNS : Stable, although blood pressure remains a little high of 160/78. HEART: S1, S2 normal, regular. LUNGS: Good bilateral air exchange. ABDOMEN: Soft, nontender. EXTREMITIES: No edema, no calf swelling, no tenderness, no acute ischemia. CENTRAL NERVOUS SYSTEM: Essentially unchange Over all Pt is clinically stablr, tolerating and improving with PT Plan: As ordered Objective - Vital Signs/Intake and Output Vital Signs (last 24 hours): Temp Pulse Resp BP Pulse Ox 96.8 F L 70 20 135/55 L 100 01/10/17 08:05 01/10/17 08:39 01/10/17 08:05 01/10/17 08:39 01/10/17 08:05 - Medications Medications: Current Medications Amlodipine Besylate (Norvasc) 10 mg PO DAILY PRACHI Last Admin: 01/10/17 08:39 Dose: 10 mg
--- NOTE | 2017-01-10 10:21 | CP.PCM.CON ---
History of Present Illness - History of Present Illness History of Present Illness: 77 y/o female with PMHx of left kidney removal seen at bedside for elongated nails. Pt states that the nails are painful and become ingrown after waiting too long to have them cut. Patient admits to past surgical history of left nephrectomy for a kidney tumor. Patient also states she occasionally has high blood pressure which is managed by diet and exercise. Patient denies any allergies. Patient states that she formerly drank alcohol and smoked cigarettes but quit both several years ago. Patient denies any illicit drug use. Patient states that she had a fall recently but cannot recall the exact date. Patient states she has been working with physical therapy on her walking but still feels off balance. Patient denies any F/N/V/C/SOB. Review of Systems - Review of Systems All systems: reviewed and no additional remarkable complaints except (per HPI) - Constitutional Constitutional: As Per HPI Past Patient History - Past Medical History & Family History Past Medical History?: Yes - Past Social History Smoking Status: Never Smoked - NEUROLOGICAL Hx Neurological Disorder: Yes - RENAL Hx Chronic Kidney Disease: Yes - HEMATOLOGICAL/ONCOLOGICAL Hx AIDS: No Hx Human Immunodeficiency Virus (HIV): No - MUSCULOSKELETAL/RHEUMATOLOGICAL Hx Musculoskeletal Disorders: Yes Hx Falls: No Hx Unsteady Gait: Yes - PSYCHIATRIC Hx Substance Use: No - SURGICAL HISTORY Hx Surgeries: Yes (L nephrectomy) - ANESTHESIA Hx Anesthesia: Yes Hx Anesthesia Reactions: No Hx Malignant Hyperthermia: No Meds Allergies/Adverse Reactions: Allergies Allergy/AdvReac Type Severity Reaction Status Date / Time No Known Allergies Allergy Verified 01/02/17 12:56 - Medications Medications: Current Medications Amlodipine Besylate (Norvasc) 10 mg PO DAILY PRACHI Last Admin: 01/10/17 08:39 Dose: 10 mg Physical Exam - Constitutional Appears: Well, Non-toxic, No Acute Distress - Extremities Exam Additional comments: VASC: DP/PT pulses are palpable 2/4 B/L. Temp gradient WNL. CFT < 3 sec to all digits. No pedal edema. Derm: Elongated mildly dystrophic toenails x 10. Skin and soft tissue intact, no open lesions, no erythema, no clinical signs of infection Neuro: Protective sensation grossly intact Ortho: No pain on palpation of nails x 10 - Neurological Exam Neurological exam: Alert, Oriented x3 - Psychiatric Exam Psychiatric exam: Normal Affect, Normal Mood Results - Vital Signs Recent Vital Signs: Last Vital Signs Temp 96.8 F L 01/10/17 08:05 Pulse 70 01/10/17 08:39 Resp 20 01/10/17 08:05 BP 135/55 L 01/10/17 08:39 Pulse Ox 100 01/10/17 08:05 Assessment & Plan - Assessment and Plan (Free Text) Assessment: 77 y/o female seen at bedside for elongated painful toenails following a fall and a syncopal episode Plan: Pt evaluated and chart created Pt discussed in detail with attending Dr. Mascorro Aseptic debridement of toenails using sterile nippers Pt tolerated the procedure well Thank you for the consult, podiatry to sign off at this time Please re-consult podiatry for any new pedal complaints Pt may follow up with Dr. Mascorro as an outpatient as needed for foot care
[2017-01-11 07:58] VITALS: BP 126/54; PULSE 64; TEMP 97.5; O2SAT 100
--- NOTE | 2017-01-12 12:46 | CP.PCM.PN ---
Subjective - Date & Time of Evaluation Date of Evaluation: 01/11/17 Time of Evaluation: 07:00 - Subjective Subjective: The patient is seen and examined. Interim events noted. The patient remains in transitional care care unit. The patient feels okay. No specific complaints , although the patient is not a good historian. PHYSICAL EXAMINATION: GENERAL: The patient is in no acute distress. VITAL SIGNS: Stable. HEART: S1, S2 normal, regular. LUNGS: Good bilateral air entry. ABDOMEN: Soft, nontender. NG tube is in good position and functioning. EXTREMITIES: No edema, no calf swelling, no tenderness, no acute ischemia. CENTRAL NERVOUS SYSTEM: Essentially unchanged. Available diagnostic data reviewed. Over all pt is clinically stable. WIll d/c pt home today. case and plan d/w pt. Plan: As ordered Objective - Vital Signs/Intake and Output Vital Signs (last 24 hours): Temp Pulse Resp BP Pulse Ox 97.5 F L 64 20 126/54 L 100 01/11/17 07:57 01/11/17 08:39 01/11/17 07:57 01/11/17 08:39 01/11/17 07:57
--- NOTE | 2017-01-12 12:48 | CP.PCM.DIS ---
Provider - Provider Date of Admission: 01/02/17 13:07 Attending physician: Cameron Constantino MD Time Spent in preparation of Discharge (in minutes): 35 Hospital Course - Hospital Course Hospital Course: Pt was admitted to PCU. Rehab done. Labs onitored. Resident improved and d/debra home to be followed up with PCP Discharge Plan - Follow Up Plan Condition: FAIR Disposition: HOME/ ROUTINE Instructions: Syncope (DC), Fall Prevention (DC), Dehydration (DC), Syncope ( GEN) Additional Instructions: refereed to [address] [phone] follow up on january 18 [address] Lewis
== END 2017-01-11 14:10 | disposition home or self-care (01) | DRG 946 ==
LOC: H.TCU 13:07 → UNDOADMIN 13:48 → H.TCU 13:48
PROVIDERS: ADMIT Internal Medicine; ATTEND Internal Medicine
PROC: F07Z9FZ Gait Training/Functional Ambulation Treatment using Assistive, Adaptive, Supportive or Protective Equipment (ICD-10-PCS; principal; 2017-01-02)
PROC: F07K6ZZ Therapeutic Exercise Treatment of Musculoskeletal System - Upper Back / Upper Extremity (ICD-10-PCS; 2017-01-02)
PROC: F08Z4ZZ Home Management Treatment (ICD-10-PCS; 2017-01-02)
PROC: F07L6ZZ Therapeutic Exercise Treatment of Musculoskeletal System - Lower Back / Lower Extremity (ICD-10-PCS; 2017-01-02)
DX: R53.81 Other malaise (principal); E86.0 Dehydration; I10 Essential (primary) hypertension; Z90.5 Acquired absence of kidney

== ENCOUNTER 2017-01-22 14:45 | Inpatient (IN) | payer MEDICARE ==
[2017-01-22 14:45] VITALS: BMI 22.6
--- NOTE | 2017-01-22 15:26 | ED PDOC ---
Syncope/Near Syncope/Dizziness History Per: Patient History/Exam Limitations: no limitations Onset/Duration Of Symptoms: Mins Current Symptoms Are (Timing): Better Associated Symptoms Preceding Syncopal Episode: Lightheadedness. denies: Vertigo, Vertigo Worse With Change In Head Position Seizure Or Post-ictal Symptoms: None Fall Associated With With Symptoms: No Additional Complaint(s): CC: light-headedness HPI: 77 y/o woman w/ history of syncope (admitted 12/2016) presents w/ light- headedness. The patient reports that she was on the phone setting up transport for an appointment with a neurologist next week when she was told that she may be having a CVA and to call 911. The patient was brought in by ambulance and reports mild light-headedness but denies vertigo. The patient ambulates w/ assistance of cane. The patient reports that she lives alone and able to do all ADLs and IADLs. Patient does not have home health aid or visiting nurse services. The patient denies headache, vision change, slurred speech, weakness , palpitations, chest pain, SOB, abdominal pain, nausea, vomiting, diarrhea, dysuria and fevers. PMD: none PMH: syncope PSH: left nephrectomy due to renal carcinoma 10 years ago SOC: quit smoking 2003, denies alcohol, and drugs ROS: denies 12 points assessed un;ess otherwise reported in HPI - Symptoms Of CVA Recent Aspirin Use: No Current Coumadin Use?: No Recent Head Trauma: No - Risk Factors PE Risk Factors: Pos: Recent Hospitalization Neg: Extremity Immobilization/Fx, Decreased Mobilty /Activity, Recent Major Surgery, Active Cancer, Previous DVT, Previous PE, CHF, Venous Stasis, Estrogen Usage, , Post-, Recent Major Trauma TAD Risk Factors: Neg: Hypertension, Connective Tissue Disease, Marfan's Syndrome, Abelino- Danlos Syndrome, Aortic Valve Disease, Active , Tumer's Syndrome, First Degree Relative With TAD, Sudden Onset Of Pain, Migration Of Pain, New Neurologic Symptoms Risk Factors (Syncope): Neg: H/O Ventricular Arrhythmias, Known Coronary Artery Disease, H/O Severe Valvular Disease, Congestive Heart Failure, H/O Congenital Heart Disease, Family History Of Sudden , Exertional Syncope, Brugada Syndrome <Jules Urena - Last Filed: 01/22/17 18:52> <Sarah Templeton - Last Filed: 01/23/17 15:10> Time Seen by Provider: 01/22/17 14:52 Chief Complaint (Nursing): Dizziness/Lightheaded Supervising Attending Note - Supervising Attending Note The Documented history was done by the: Physician Access Control Officer, Attending Physician The documented physical exam was done by the: Physician Access Control Officer, Attending Physician - Attestation: I have personally seen and examined this patient.: Yes I have fully participated in the care of the patient.: Yes I have reviewed all pertinent clinical information: Yes - Notes: Notes:: 7p On attempt to walk to bathroom, pt reports that she feels very dizzy. Pt reports that she has had this dizziness but mildly since her discharge from this hospital last month, but it has gotten worse. No focal weakness. 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 Repeat ordered. Accession No. : [id number] Patient Name / ID : JOSH WINTERS / [id number] Exam Date : 01/22/2017 19:41:53 ( Approved ) Study Comment : Sex / Age : F / 77Y Creator : LUCERO POTTS Dictator : Technical Sourcing Recruiter : Resource Conservation Manager : LUCERO POTTS Approver2 : Report Date : 01/22/2017 20:49:00 My Comment : [facility] Division of Radiology [address] [address] Tel. no. Patient Name: SINGH MORENO Pt. Address: [address] [place] [address] Med. Rec #: [id number] [place] [address]: Jareth RICHARDSON, Sarah Lovett Pt CELL Order Location: [facility] : 1940 Female Age: 77 Order #: [id number] Reason for exam: DIZZINESS HEADACHE CT Scan HEAD W/O CONTRAST Exam Date: 01/22/17 This imaging exam was performed at [facility] EXAM: CT Head Without Intravenous Contrast CLINICAL HISTORY: 77 years old, female; Pain and signs and symptoms; Dizziness; Headache; Headache not specified; Additional info: Dizziness headache TECHNIQUE: Axial computed tomography images of the head/brain without intravenous contrast. This CT exam was performed using one or more of the following dose reduction techniques: automated exposure control, adjustment of the mA and/or kV according to patient size, and/or use of iterative reconstruction technique. Coronal and sagittal reformatted images were created and reviewed. EXAM DATE/TIME: 01/22/2017 7:12 PM COMPARISON: CT - HEAD W/O CONTRAST 12/29/2016 11:32:26 PM FINDINGS: Brain: There is dilatation of lateral, third and fourth ventricles, unchanged. There is prominence cisterna magna. There is no midline shift. Sulci and gyri are unremarkable. There are no intra-axial or extra-axial mass lesions or hemorrhage. Gallardo-white differentiation is identified. Ventricles: See above. Bones/joints: There are no skull fractures. Soft tissues: unremarkable Sinuses: There is no acute sinusitis. Mastoid air cells: Middle ears and mastoids: Middle ears and mastoids are well-aerated.. IMPRESSION: No acute intracranial abnormality; dilated ventricles out proportion to the sulci and gyri, communicating hydrocephalus cannot be excluded Dictated By: Lucero Potts MD, MD Dictated Date/Time: 01/22/172048 Signed By: Lucero Potts MD Date Signed: 2048 Transcribed By: MARY Transcribe Date/Time : 01/22/172048 SAMSON/DIANA 10p On reeval after meclizine and food pt still very dizzy. Concern for fall and pt lives alone. Willl hospitalize for further evaluation. HALIE Crooks FP Resident. <Sarah Templeton - Last Filed: 01/23/17 15:10> Past Medical History Vital Signs: Last Vital Signs Temp 99.6 F 01/22/17 14:47 Pulse 75 01/22/17 14:47 Resp 18 01/22/17 14:47 BP 153/66 H 01/22/17 14:47 Pulse Ox 98 01/22/17 14:47 - Medical History PMH: Chronic Kidney Disease Denies: HIV - Family History Family History: States: Unknown Family Hx <Jules Urena - Last Filed: 01/22/17 18:52> Vital Signs: Last Vital Signs Temp 99.6 F 01/22/17 14:47 Pulse 75 01/22/17 14:47 Resp 18 01/22/17 14:47 BP 153/66 H 01/22/17 14:47 Pulse Ox 98 01/22/17 18:53 <Sarah Templeton - Last Filed: 01/23/17 15:10> - Home Medications Home Medications: Ambulatory Orders Medication Instructions Recorded No Known Home Med 01/22/17 - Allergies Allergies/Adverse Reactions: Allergies Allergy/AdvReac Type Severity Reaction Status Date / Time No Known Allergies Allergy Verified 01/02/17 12:56 Review of Systems ROS Statement: Except As Marked, All Systems Reviewed And Found Negative Constitutional: Negative for: Fever, Chills, Sweats, Weakness Eyes: Negative for: Vision Change Cardiovascular: Positive for: Light Headedness. Negative for: Chest Pain, Palpitations, Edema Respiratory: Negative for: Cough, Shortness of Breath, Hemoptysis, SOB with Exertion, Wheezing Gastrointestinal: Negative for: Nausea, Vomiting, Abdominal Pain, Diarrhea Genitourinary Female: Negative for: Dysuria Musculoskeletal: Negative for: Neck Pain Skin: Negative for: Rash Neurological: Positive for: Dizziness. Negative for: Weakness, Numbness, Incoordination, Change in Speech, Confusion, Seizures, Altered Mental Status, Headache <Jules Urena - Last Filed: 01/22/17 18:52> Physical Exam - Reviewed Nursing Documentation Reviewed: Yes Vital Signs Reviewed: Yes - Physical Exam Appears: Positive for: No Acute Distress Head Exam: Positive for: ATRAUMATIC, NORMOCEPHALIC Skin: Positive for: Normal Color, Warm, Dry. Negative for: Diaphoresis Eye Exam: Positive for: Normal appearance, EOMI, PERRL Neck: Positive for: Painless ROM, Supple Cardiovascular/Chest: Positive for: Regular Rate, Rhythm, Chest Non Tender. Negative for: Edema, Murmur, Bradycardia, Tachycardia Respiratory: Positive for: Normal Breath Sounds. Negative for: Decreased Breath Sounds, Accessory Muscle Use, Wheezing, Respiratory Distress Pulses-Carotid (L): 2+ Pulses-Carotid (R): 2+ Pulses-Radial (L): 2+ Pulses-Radial (R): 2+ Gastrointestinal/Abdominal: Positive for: Normal Exam, Bowel Sounds, Soft. 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 Negative for: Motor/Sensory Deficits, Aphasia, Facial Droop <Jules Urena - Last Filed: 01/22/17 18:52> - Laboratory Results Result Diagrams: 01/22/17 16:24 01/22/17 16:24 - ECG O2 Sat by Pulse Oximetry: 98 <Jules Urena - Last Filed: 01/22/17 18:52> - Laboratory Results Result Diagrams: 01/22/17 16:24 01/22/17 16:24 <Sarah Templeton - Last Filed: 01/23/17 15:10> Medical Decision Making Medical Decision Makin77 y/o woman w/ history of syncope (admitted 12/2016) presents w/ light- headedness CBC w/ diff: mild anemia Hb 11.4, no elevated WBC CMP: WNL magnesium: WNL phosphorous: WNL troponin I: neg, <0.0120 urine dip: trace ketone, trace leukocyte esterase, neg blood, glucose, protein, and nitrates fingerstick: 90 EKG: NSR, no ST elevation/depression, no T-wave inversion/peaking, no prolonged QT interval, no prolonged segments re-evaluated 17:30 patient feels better UA: WBC 5, WNL Dispo: discharge home, counseled to follow up w/ PMD and neurology <Jules Urena - Last Filed: 01/22/17 18:52> Disposition - Patient ED Disposition Is Patient to be Admitted: No - Disposition Disposition: Routine/Home Disposition Time: 18:53 - POA Present On Arrival: None <Jules Urena - Last Filed: 01/22/17 18:52> - Patient ED Disposition Is Patient to be Admitted: Yes Counseled Patient/Family Regarding: Studies Performed, Diagnosis - Pt Status Changed To: Hospital Disposition Of: Inpatient - Admit Certification Admit to Inpatient:: After my assessment, the patient will require hospitalization for at least two midnights. This is because of the severity of symptoms shown, intensity of services needed, and/or the medical risk in this patient being treated as an outpatient. - POA Present On Arrival: Falls Or Trauma <Sarah Templeton - Last Filed: 01/23/17 15:10> - Clinical Impression Clinical Impression: Dizziness of unknown cause - Disposition Condition: STABLE
[2017-01-22 16:30] LABS: BASO # 0.1 K/uL (0.0-0.2); BASO % 1.2 % (0.0-2.0); EOS # 0.2 K/uL (0.0-0.7); EOS % 2.6 % (0.0-4.0); HEMOGLOBIN 11.4 g/dL (12.0-16.0); LYMPH # 1.2 K/uL (1.0-4.3); LYMPH % 17.7 % (20.0-40.0); MEAN CELL VOLUME 84.7 fl (81.0-99.0); MEAN CORPUSCULAR HEMOGLOBIN 27.7 pg (27.0-31.0); MEAN CORPUSCULAR HGB CONC 32.8 g/dL (33.0-37.0); MEAN PLATELET VOLUME 7.8 fl (7.2-11.7); MONO # 0.4 K/uL (0.0-0.8); MONO % 6.6 % (0.0-10.0); NEUT # 4.8 K/uL (1.8-7.0); NEUT % 71.9 % (50.0-75.0); RBC 4.11 Mil/uL (3.80-5.20); RED CELL DISTRIBUTION WIDTH 15.6 % (11.5-14.5); WHITE BLOOD COUNT 6.7 K/uL (4.8-10.8)
[2017-01-22 16:42] LABS: ALB/GLOB RATIO 1.1 (1.0-2.1); ALBUMIN 3.6 g/dL (3.5-5.0); ALT/SGPT 27 U/L (9-52); AST/SGOT 17 U/L (14-36); BLOOD UREA NITROGEN 14 mg/dl (7-17); CALCIUM 9.1 mg/dL (8.4-10.2); GFR AFRICAN-AMERICAN > 60; GFR NON-AFRICAN AMERICAN 54; MAGNESIUM 2.1 MG/DL (1.6-2.3)
[2017-01-22 18:41] LABS: SQUAMOUS EPITHIAL < 1 /hpf (0-5); URINE BILIRUBIN NEGATIVE (NEGATIVE); URINE BLOOD NEGATIVE (NEGATIVE); URINE CLARITY CLEAR (Clear); URINE COLOR YELLOW (YELLOW); URINE GLUCOSE (UA) NEG (Normal); URINE LEUKOCYTE ESTERASE TRACE Leu/uL (Negative); URINE NITRATE NEGATIVE (NEGATIVE); URINE PROTEIN NEGATIVE (NEGATIVE); URINE UROBILINOGEN 0.2-1.0 mg/dL (0.2-1.0)
--- NOTE | 2017-01-22 20:50 | CT ---
EXAM: CT Head Without Intravenous Contrast CLINICAL HISTORY: 77 years old, female; Pain and signs and symptoms; Dizziness; Headache; Headache not specified; Additional info: Dizziness headache TECHNIQUE: Axial computed tomography images of the head/brain without intravenous contrast. This CT exam was performed using one or more of the following dose reduction techniques: automated exposure control, adjustment of the mA and/or kV according to patient size, and/or use of iterative reconstruction technique. Coronal and sagittal reformatted images were created and reviewed. EXAM DATE/TIME: 01/22/2017 7:12 PM COMPARISON: CT - HEAD W/O CONTRAST 12/29/2016 11:32:26 PM FINDINGS: Brain: There is dilatation of lateral, third and fourth ventricles, unchanged. There is prominence cisterna magna. There is no midline shift. Sulci and gyri are unremarkable. There are no intra-axial or extra-axial mass lesions or hemorrhage. Gallardo-white differentiation is identified. Ventricles: See above. Bones/joints: There are no skull fractures. Soft tissues: unremarkable Sinuses: There is no acute sinusitis. Mastoid air cells: Middle ears and mastoids: Middle ears and mastoids are well-aerated.. IMPRESSION: No acute intracranial abnormality; dilated ventricles out proportion to the sulci and gyri, communicating hydrocephalus cannot be excluded
--- NOTE | 2017-01-23 00:09 | CP.PCM.HP ---
History of Present Illness - History of Present Illness History of Present Illness: 77 yo F PMHx of left nephrectomy due to renal cancer in , Syncope, and dizziness is admitted due to dizziness and instability when trying to ambulate. She came to the ED because while she was on the phone with her Neurologist's office, they felt as if she were having a stroke. She currently denies any recent near syncope, difficulty speaking, difficulty moving her arms, although she does complain of imbalance when she tries to walk. Patient has mild difficulty answering questions initially, as she seems to not correctly understand the acute nature of questions asked her. However, according to the patient, she lives alone and has been able to manage her own care just fine, until last month when she syncopized. Immediately leading up to her last admission, she had syncopized in her bathroom and woke up on the floor. Upon ER arrival at that time, she stated she was on the floor for about one week. Otherwise, she currently denies fevers/chills, nausea, vomiting, diarrhea, chest pain, palpitations, SOB, dyspnea, cough, abdominal pain, hematuria, dysuria, or other myalgias. PMD: NHC PMHx: Syncope PSHx: left nephrectomy due to renal carcinoma 10 years ago NKDA Home Meds: None SHx: quit smoking 2003, denies alcohol, and drugs ED Course: -CBC -CMP -Troponin -UA -Utox -CT Head Present on Admission - Present on Admission Any Indicators Present on Admission: No History of DVT/PE: No History of Uncontrolled Diabetes: No Urinary Catheter: No Decubitus Ulcer Present: No Review of Systems - Review of Systems All systems: reviewed and no additional remarkable complaints except (see HPI) Past Patient History - Past Medical History & Family History Past Medical History?: Yes - Past Social History Smoking Status: Never Smoked - NEUROLOGICAL Hx Neurological Disorder: Yes - RENAL Hx Chronic Kidney Disease: Yes - HEMATOLOGICAL/ONCOLOGICAL Hx Human Immunodeficiency Virus (HIV): No - MUSCULOSKELETAL/RHEUMATOLOGICAL Hx Musculoskeletal Disorders: Yes Hx Falls: No Hx Unsteady Gait: Yes (uses cane) - PSYCHIATRIC Hx Substance Use: No - SURGICAL HISTORY Hx Surgeries: Yes (L nephrectomy) - ANESTHESIA Hx Anesthesia: Yes Hx Anesthesia Reactions: No Hx Malignant Hyperthermia: No Meds Allergies/Adverse Reactions: Allergies Allergy/AdvReac Type Severity Reaction Status Date / Time No Known Allergies Allergy Verified 01/02/17 12:56 Physical Exam - Constitutional Appears: Non-toxic, No Acute Distress - Head Exam Head Exam: ATRAUMATIC, NORMOCEPHALIC - Eye Exam Eye Exam: EOMI Pupil Exam: PERRL - Neck Exam Neck exam: Positive for: Full Rom, Normal Inspection - Respiratory Exam Respiratory Exam: Clear to Auscultation Bilateral, NORMAL BREATHING PATTERN. absent: Wheezes - Cardiovascular Exam Cardiovascular Exam: REGULAR RHYTHM - GI/Abdominal Exam GI & Abdominal Exam: Normal Bowel Sounds, Soft. absent: Distended, Tenderness - Extremities Exam Extremities exam: Positive for: pedal pulses present. Negative for: calf tenderness, pedal edema - Neurological Exam Neurological exam: Alert, Oriented x3 - Psychiatric Exam Additional comments: Alert & Oriented x4, Unable to performed Serial 7's after 93, Could not remember 1 of 3 items after one minute's time - Skin Skin Exam: Normal Color, Warm Results - Vital Signs Recent Vital Signs: Last Vital Signs Temp 97.9 F 01/22/17 22:13 Pulse 88 01/22/17 23:48 Resp 18 01/22/17 23:48 BP 125/52 L 01/22/17 23:48 Pulse Ox 97 01/22/17 23:48 - Labs Result Diagrams: 01/22/17 16:24 01/22/17 16:24 Assessment & Plan - Assessment and Plan (Free Text) Plan: 77 yo F PMHx of left nephrectomy due to renal cancer in , Syncope, and dizziness is admitted due to dizziness and instability when trying to ambulate 1) Intractable Dizziness -Unstable on her feet, complaining of dizziness, within presentation of recently +syncopal history -Alert & Oriented x4 -Unable to performed Serial 7's after 93 -Could not remember 1 of 3 items after one minute's time -CXR shows no obvious infections process nor enlarged heart -CT Head w/o Contrast (January 22): No acute intracranial abnormality ---Dilated ventricles out of proportion to the sulci and gyri, communicating hydrocephalus cannot be excluded. -Neuro Consult (Dec): This is not a seizure. ---Likely syncopal event could be secondary to transient cerebral hypoperfusion to the brain from possible dehydration and is also deconditioned. At this time, recommend: PT, Hydration, Current medical management. -Cardiac Echo (Dec): Sclerotic aortic valve is moderate to severe. ---LV normal size. Mild concentric LV hypertrophy. LVEF within normal range. Grade I abnormal relaxation pattern. Mild valvular aortic stenosis. Mild/ moderate aortic regurg. Aortic valve is moderately to severely sclerotic. -Zofran 4mg IVP Q6H PRN -f/u CXR official report -f/u EKG in AM -f/u PT Eval -f/u SW Eval -f/u Vitals -f/u Neuro Consult; Discuss NPH -Consider Cardio Consult -Consider Psych Consult if patient's MMSE exam does not improve following full night's rest and re hydration 2) DVT Prophylaxis -Lovenox 40mg SC Daily
--- NOTE | 2017-01-23 08:19 | CARD ---
APPROVED REPORT EKG Measurement Heart [id number] <Conclusion> Normal sinus rhythm Normal ECG
[2017-01-23] MEDS: Enoxaparin 40 mg Syringe SC SCH (09:09)
--- NOTE | 2017-01-23 11:35 | CP.PCM.PN ---
Subjective - Date & Time of Evaluation Date of Evaluation: 01/23/17 Time of Evaluation: 11:31 - Subjective Subjective: Pt seen and examined. AAOx3, Complaining of dizziness with activities. no weakness, numbness or tingling. denies SOB, chest pain, abdo pain or urinary incontinence. Objective - Vital Signs/Intake and Output Vital Signs (last 24 hours): Temp Pulse Resp BP Pulse Ox 97.4 F L 63 18 121/56 L 97 01/23/17 08:30 01/23/17 08:30 01/23/17 08:30 01/23/17 08:30 01/23/17 08:30 - Medications Medications: Current Medications Enoxaparin Sodium (Lovenox) 40 mg SC DAILY [facility] PRN Reason: Protocol Last Admin: 01/23/17 09:09 Dose: Not Given Meclizine HCl (Antivert) 12.5 mg PO BID [facility] Ondansetron HCl (Zofran Inj) 4 mg IVP Q6 PRN PRN Reason: Nausea/Vomiting - Constitutional Appears: Well, No Acute Distress - Head Exam Head Exam: ATRAUMATIC, NORMAL INSPECTION, NORMOCEPHALIC - Eye Exam Eye Exam: EOMI, Normal appearance Pupil Exam: NORMAL ACCOMODATION - Neck Exam Neck Exam: Full ROM. absent: Lymphadenopathy, Tenderness - Respiratory Exam Respiratory Exam: Clear to Ausculation Bilateral, NORMAL BREATHING PATTERN. absent: Accessory Muscle Use, Chest Wall Tenderness, Decreased Breath Sounds - Cardiovascular Exam Cardiovascular Exam: REGULAR RHYTHM, +S1, +S2. absent: Bradycardia, Tachycardia , +S4, Murmur - GI/Abdominal Exam GI & Abdominal Exam: Soft, Normal Bowel Sounds - Extremities Exam Extremities Exam: Full ROM. absent: Calf Tenderness - Back Exam Back Exam: absent: CVA tenderness (L), CVA tenderness (R) - Neurological Exam Neurological Exam: Alert, Awake, CN II-XII Intact, Oriented x3 Neuro motor strength exam: Left Upper Extremity: 4, Right Upper Extremity: 4, Left Lower Extremity: 4, Right Lower Extremity: 4 - Psychiatric Exam Psychiatric exam: Normal Affect, Normal Mood - Skin Skin Exam: Normal Color Assessment and Plan - Assessment and Plan (Free Text) Assessment: 77 yo F PMHx of left nephrectomy due to renal cancer in '07, Syncope, and dizziness is admitted due to dizziness and instability when trying to ambulate. Plan: Intractable Dizziness -possibly secondery to TIA vs depression vs postural vertigo -Unstable on her feet, complaining of dizziness with activities, +syncopal history -Meclizine 12.5 PO BID -AAOx3 -MMSE scored 27/30 -Unable to performed Serial 7's after 93 -Could not remember 1 of 3 items after one minute's time -CXR unremarkable, shows no active disease -CT Head w/o Contrast (January 22): No acute intracranial abnormality, Dilated ventricles out of proportion to the sulci and gyri, communicating hydrocephalus cannot be excluded. -Neuro Consult (Dec): This is not a seizure. Likely syncopal event could be secondary to transient cerebral hypoperfusion to the brain from possible dehydration and is also deconditioned. At this time, recommend: PT, Hydration, Current medical management. -Cardiac Echo (Dec): Sclerotic aortic valve is moderate to severe. LV normal size. Mild concentric LV hypertrophy. LVEF within normal range. -Zofran 4mg IVP Q6H PRN -EKG shows normal sinus rhythm -MRI brain: Marked dilatation of the 3rd and lateral ventricles. scatter white matter ischemic changes. -f/u PT Eval -f/u Neurology Consult PTSD/Depression -pt reports recent of 2 loved once -will start Celexa 10mg daily DVT Prophylaxis -Lovenox 40mg SC Qian
--- NOTE | 2017-01-23 12:20 | RAD ---
HISTORY: view cardiac, r/o infectious process COMPARISON: 12/30/2016 TECHNIQUE: Chest PA and lateral FINDINGS: LUNGS: No active pulmonary disease. PLEURA: No significant pleural effusion identified. No pneumothorax apparent. CARDIOVASCULAR: Normal. OSSEOUS STRUCTURES: No significant abnormalities. VISUALIZED UPPER ABDOMEN: Normal. OTHER FINDINGS: None. IMPRESSION: No active disease.
--- NOTE | 2017-01-23 13:25 | MRI ---
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 FINDINGS: HEMORRHAGE: No acute parenchymal, subarachnoid or extra-axial hemorrhage. DWI: No evidence of acute infarct seen on diffusion-weighted sequence. BRAIN PARENCHYMA: Chronic appearing periventricular and scattered deep and subcortical white matter ischemic changes are felt to be present. VENTRICLES: Marked dilatation of the 3rd and lateral ventricles and to a lesser degree 4th ventricle. Findings are of uncertain etiology though differential diagnosis would include chronic compensated obstructive type hydrocephalus. Normal pressure hydrocephalus (NPH) should be considered if the clinical triad of dementia, ataxia and incontinence present. The cisterna magna is prominent with small appearing inferior vermis. Rule out Dandy-Walker variant. CRANIUM: No acute calvarial abnormalities. ORBITS: Changes of bilateral cataract surgery present. PARANASAL SINUSES/MASTOIDS: Frontal sinuses are underpneumatized/ hypoplastic. Remaining paranasal paranasal sinuses are well-developed. No fluid levels seen to suggest acute sinusitis. VASCULAR SYSTEM: Visualized major vascular flow voids at skull base are patent. OTHER FINDINGS: None. IMPRESSION: No acute intracranial hemorrhage or infarct. Marked dilatation of the 3rd and lateral ventricles; findings could represent chronic compensated obstructive hydrocephalus however NPH must be considered in the clinical triad of dementia, ataxia and incontinence present. Scatter white matter ischemic changes. The cisterna magna is prominent with small appearing inferior vermis. Rule out Dandy-Walker variant.
--- NOTE | 2017-01-23 13:29 | US ---
PROCEDURE: Carotid vertebral duplex sonography HISTORY: ASSESS STENOSIS COMPARISON: None available. TECHNIQUE: Grayscale, color Doppler and spectral Doppler assessment of the carotid system bilaterally. This includes common carotid, internal carotid arteries Vertebral artery assessment with respect to direction of flow (antegrade or retrograde) FINDINGS: RIGHT carotid system: Assessment of plaque: Heterogeneous plaque formation. Peak systolic ICA velocity: 87.5 cm/sec End-diastolic velocity: 26.2 cm/sec ICA/CCA ratio: 1.3 Vertebral artery flow: Antegrade LEFT carotid system: Assessment of plaque: Heterogeneous plaque formation. Peak systolic ICA velocity: 157.8 cm/sec End-diastolic velocity: 40.9 cm/sec ICA/CCA ratio: 2.4 Vertebral artery flow: Antegrade IMPRESSION: Right ICA degree of stenosis: Less than 50% Left ICA degree of stenosis: 50- 69%. Reference Internal Carotid Artery (ICA) Peak Systolic Velocity (PSV) for above: 1. Less than 50% stenosis less than 125 cm/s peak systolic velocity 2. 50-69% stenosis 125-230cm/s peak systolic velocity 3. Greater than 70% but less than near occlusion greater than 230 cm/s peak systolic velocity
--- NOTE | 2017-01-23 15:09 | CARD ---
APPROVED REPORT EKG Measurement Heart [id number] <Conclusion> Normal sinus rhythm Normal ECG
[2017-01-23 17:16] LABS: PROLACTIN 13.1 ng/mL (3.0-18.9)
--- NOTE | 2017-01-23 21:41 | CP.PCM.CON ---
History of Present Illness - History of Present Illness History of Present Illness: DIZZINESS AND SCHDULED TO SEE HIS PMD EMT FOUND THAT SHE MIGHT HAVE TIA AND BROUGHT TO ED LOSING BALANCE FOR THE LAST FEW MONTHS AND NEEDS CANT FOR 2 MONTHS NO URINARY INCONTINENCE DENIES DEMENTIA Past Patient History - Past Medical History & Family History Past Medical History?: Yes - Past Social History Smoking Status: Never Smoked - CARDIAC Hx Cardiac Disorders: No - PULMONARY Hx Respiratory Disorders: No - NEUROLOGICAL Hx Neurological Disorder: Yes - HEENT Hx HEENT Problems: No - RENAL Hx Chronic Kidney Disease: Yes - ENDOCRINE/METABOLIC Hx Endocrine Disorders: No - HEMATOLOGICAL/ONCOLOGICAL Hx Human Immunodeficiency Virus (HIV): No - INTEGUMENTARY Hx Dermatological Problems: No - MUSCULOSKELETAL/RHEUMATOLOGICAL Hx Musculoskeletal Disorders: Yes Hx Falls: No Hx Unsteady Gait: Yes (uses cane) - GASTROINTESTINAL Hx Gastrointestinal Disorders: No - GENITOURINARY/GYNECOLOGICAL Hx Genitourinary Disorders: No - PSYCHIATRIC Hx Substance Use: No - SURGICAL HISTORY Hx Surgeries: Yes (L nephrectomy) - ANESTHESIA Hx Anesthesia: Yes Hx Anesthesia Reactions: No Hx Malignant Hyperthermia: No Meds Allergies/Adverse Reactions: Allergies Allergy/AdvReac Type Severity Reaction Status Date / Time No Known Allergies Allergy Verified 01/02/17 12:56 - Medications Medications: Current Medications Citalopram Hydrobromide (Celexa) 10 mg PO DAILY [facility] Last Admin: 01/23/17 16:35 Dose: 10 mg Enoxaparin Sodium (Lovenox) 40 mg SC DAILY [facility] PRN Reason: Protocol Last Admin: 01/23/17 09:09 Dose: Not Given Meclizine HCl (Antivert) 12.5 mg PO BID [facility] Last Admin: 01/23/17 16:36 Dose: 12.5 mg Ondansetron HCl (Zofran Inj) 4 mg IVP Q6 PRN PRN Reason: Nausea/Vomiting Physical Exam - Constitutional Appears: Non-toxic - Head Exam Head Exam: ATRAUMATIC, NORMAL INSPECTION - Eye Exam Eye Exam: EOMI - Respiratory Exam Respiratory Exam: NORMAL BREATHING PATTERN - Cardiovascular Exam Cardiovascular Exam: REGULAR RHYTHM, Systolic Murmur - Neurological Exam Neurological exam: Abnormal Gait - Expanded Neurological Exam Expanded Patient oriented to: person, place, time Cranial nerves: EOM's Intact: Abnormal Left, Abnormal Right (DECREASED), Facial Palsey w/Forehead Movement: Normal, Facial Palsey w/o Forehead Movement: Normal , Gag Reflex: Normal, Nystagmus: Normal, Tongue Deviation: Normal Cerebellar Function: Finger to Nose: Normal Upper motor neuron: Babinski Sign: Abnormal Left, Abnormal Right Neuro motor strength exam: Left Upper Extremity: 4, Right Upper Extremity: 4, Left Lower Extremity: 4, Right Lower Extremity: 4 DTR: Achilles Tendon Left: 0, Achilles Tendon Right: 0, Bicep Left: 0, Bicep Right: 0, Brachioradialis Left: 0, Brachioradialis Right: 0, Patellar Left: 0, Patellar Right: 0, Tricep Left: 0, Tricep Right: 0 Coma Scale Motor Response: OBEYS COMMANDS, Extensor Response Results - Vital Signs Recent Vital Signs: Last Vital Signs Temp 98.2 F 01/23/17 19:33 Pulse 68 01/23/17 19:33 Resp 18 01/23/17 19:33 BP 123/66 01/23/17 19:33 Pulse Ox 95 01/23/17 19:33 - Labs Result Diagrams: 01/22/17 16:24 01/22/17 16:24 - Imaging and Cardiology MRI - head Status: Image reviewed by me (HYDROCEPHALUS MILD OBSTRUCTION AND DANDY WALKER VARRIETN. CAROTID LEFT MOD STENOSIS ) Assessment & Plan (1) Vestibular ataxia Assessment and Plan: VESTIBULAR THERAPY PT GAIT TRAINING NEEDS EMG FOR HER NEUROPATHY AN OP Status: Acute - Date & Time Date: 01/23/17 Time: 18:45
--- NOTE | 2017-01-23 21:49 | CP.PCM.PN ---
Subjective - Date & Time of Evaluation Date of Evaluation: 01/23/17 Time of Evaluation: 17:00 - Subjective Subjective: EEG : BILATERAL SLOW THETAL NO PAROXYSMAL ACTIVITES OR SEIZURES Objective - Vital Signs/Intake and Output Vital Signs (last 24 hours): Temp Pulse Resp BP Pulse Ox 98.2 F 68 18 123/66 95 01/23/17 19:33 01/23/17 19:33 01/23/17 19:33 01/23/17 19:33 01/23/17 19:33 Intake and Output: 01/23/17 01/24/17 18:59 06:59 Intake Total 700 Balance 700 - Medications Medications: Current Medications Citalopram Hydrobromide (Celexa) 10 mg PO DAILY [facility] Last Admin: 01/23/17 16:35 Dose: 10 mg Enoxaparin Sodium (Lovenox) 40 mg SC DAILY [facility] PRN Reason: Protocol Last Admin: 01/23/17 09:09 Dose: Not Given Meclizine HCl (Antivert) 12.5 mg PO BID [facility] Last Admin: 01/23/17 16:36 Dose: 12.5 mg Ondansetron HCl (Zofran Inj) 4 mg IVP Q6 PRN PRN Reason: Nausea/Vomiting Assessment and Plan (1) Vestibular ataxia Status: Acute
[2017-01-24 05:24] VITALS: RESP 18
[2017-01-24 07:50] VITALS: BP 134/62
--- NOTE | 2017-01-24 08:38 | CP.PCM.PN ---
Subjective - Date & Time of Evaluation Date of Evaluation: 01/24/17 Time of Evaluation: 08:34 - Subjective Subjective: Pt seen and examined at bedside. Not complaining of dizziness as of now, only feels dizzy when she gets up. no numbness, tingling, urinary incontinence or N/ V. denies headache, chest pain, SOB. Objective - Vital Signs/Intake and Output Vital Signs (last 24 hours): Temp Pulse Resp BP Pulse Ox 98.2 F 52 L 18 134/62 99 01/24/17 07:49 01/24/17 07:49 01/24/17 07:49 01/24/17 07:49 01/24/17 07:49 - Medications Medications: Current Medications Citalopram Hydrobromide (Celexa) 10 mg PO DAILY [facility] Last Admin: 01/23/17 16:35 Dose: 10 mg Enoxaparin Sodium (Lovenox) 40 mg SC DAILY [facility] PRN Reason: Protocol Last Admin: 01/23/17 09:09 Dose: Not Given Meclizine HCl (Antivert) 12.5 mg PO BID [facility] Last Admin: 01/23/17 16:36 Dose: 12.5 mg Ondansetron HCl (Zofran Inj) 4 mg IVP Q6 PRN PRN Reason: Nausea/Vomiting
[2017-01-24] MEDS: Enoxaparin 40 mg Syringe SC SCH (08:44)
[2017-01-24 10:47] VITALS: PULSE 69; TEMP 98.6; O2SAT 95
--- NOTE | 2017-01-24 12:37 | CP.PCM.DIS ---
Provider - Provider Date of Admission: 01/23/17 15:25 Attending physician: Mercy Wallis MD Consults: Neurology, Dr. Baumann Time Spent in preparation of Discharge (in minutes): 30 Diagnosis - Discharge Diagnosis (1) Vestibular ataxia Status: Acute (2) Dizziness of unknown cause Status: Acute Comment: Acute and chronic (3) Syncope Status: Chronic (4) Depression Status: Acute Hospital Course - Lab Results Lab Results: Most Recent Lab Values WBC 6.7 K/uL (4.8-10.8) 01/22/17 16:24 RBC 4.11 Mil/uL (3.80-5.20) 01/22/17 16:24 Hgb 11.4 g/dL (12.0-16.0) L 01/22/17 16:24 Hct 34.8 % (34.0-47.0) 01/22/17 16:24 MCV 84.7 fl (81.0-99.0) 01/22/17 16:24 MCH 27.7 pg (27.0-31.0) 01/22/17 16:24 MCHC 32.8 g/dL (33.0-37.0) L 01/22/17 16:24 RDW 15.6 % (11.5-14.5) H 01/22/17 16:24 Plt Count 229 K/uL (130-400) 01/22/17 16:24 MPV 7.8 fl (7.2-11.7) 01/22/17 16:24 Neut % (Auto) 71.9 % (50.0-75.0) 01/22/17 16:24 Lymph % (Auto) 17.7 % (20.0-40.0) L 01/22/17 16:24 [place] % (Auto) 6.6 % (0.0-10.0) 01/22/17 16:24 Eos % (Auto) 2.6 % (0.0-4.0) 01/22/17 16:24 Baso % (Auto) 1.2 % (0.0-2.0) 01/22/17 16:24 Neut # 4.8 K/uL (1.8-7.0) 01/22/17 16:24 Lymph # 1.2 K/uL (1.0-4.3) 01/22/17 16:24 [place] # 0.4 K/uL (0.0-0.8) 01/22/17 16:24 Eos # 0.2 K/uL (0.0-0.7) 01/22/17 16:24 Baso # 0.1 K/uL (0.0-0.2) 01/22/17 16:24 Sodium 139 mmol/l (132-148) 01/22/17 16:24 Potassium 4.4 MMOL/L (3.6-5.0) 01/22/17 16:24 Chloride 107 mmol/L (98-107) 01/22/17 16:24 Carbon Dioxide 25 mmol/L (22-30) 01/22/17 16:24 Anion Gap 13 (10-20) 01/22/17 16:24 BUN 14 mg/dl (7-17) 01/22/17 16:24 Creatinine 1.0 mg/dL (0.7-1.2) 01/22/17 16:24 Est GFR ( Amer) > 60 01/22/17 16:24 Est GFR (Non-Af Amer) 54 01/22/17 16:24 POC Glucose (mg/dL) 90 mg/dL (65-110) 01/22/17 16:38 Random Glucose 84 mg/dL (65-105) 01/22/17 16:24 Hemoglobin A1c 5.8 % (4.2-6.5) 01/23/17 10:50 Calcium 9.1 mg/dL (8.4-10.2) 01/22/17 16:24 Phosphorus 3.7 mg/dl (2.5-4.5) 01/22/17 16:24 Magnesium 2.1 MG/DL (1.6-2.3) 01/22/17 16:24 Total Bilirubin 0.3 mg/dl (0.2-1.3) 01/22/17 16:24 AST 17 U/L (14-36) 01/22/17 16:24 ALT 27 U/L (9-52) 01/22/17 16:24 Alkaline Phosphatase 72 U/L (38-126) 01/22/17 16:24 Troponin I < 0.0120 ng/mL (0.00-0.120) 01/22/17 16:24 Total Protein 6.9 G/DL (6.3-8.2) 01/22/17 16:24 Albumin 3.6 g/dL (3.5-5.0) 01/22/17 16:24 Globulin 3.3 gm/dL (2.2-3.9) 01/22/17 16:24 Albumin/Globulin Ratio 1.1 (1.0-2.1) 01/22/17 16:24 Triglycerides 140 mg/DL (0-149) 01/23/17 10:50 Cholesterol 223 mg/dL (0-199) H 01/23/17 10:50 LDL Cholesterol Direct 155 mg/dL (0-129) H 01/23/17 10:50 HDL Cholesterol 26 MG/DL (30-70) L 01/23/17 10:50 Vitamin B12 448 pg/mL (239-931) 01/23/17 10:50 Folate 13.0 ng/mL 01/23/17 10:50 Homocysteine 11.3 umol/L ( <10.4) H 01/23/17 10:50 TSH 3rd Generation 1.16 mIU/ML (0.46-4.68) 01/23/17 10:50 Prolactin 13.1 ng/mL (3.0-18.9) 01/23/17 10:50 Urine Color Yellow (YELLOW) 01/22/17 18:00 Urine Clarity Clear (Clear) 01/22/17 18:00 Urine pH 7.0 (5.0-8.0) 01/22/17 18:00 Ur Specific [place] 1.012 (1.003-1.030) 01/22/17 18:00 Urine Protein Negative mg/dL (NEGATIVE) 01/22/17 18:00 Urine Glucose (UA) Neg mg/dL (Normal) 01/22/17 18:00 Urine Ketones Trace mg/dL (NEGATIVE) 01/22/17 18:00 Urine Blood Negative (NEGATIVE) 01/22/17 18:00 Urine Nitrate Negative (NEGATIVE) 01/22/17 18:00 Urine Bilirubin Negative (NEGATIVE) 01/22/17 18:00 Urine Urobilinogen 0.2-1.0 mg/dL (0.2-1.0) 01/22/17 18:00 Ur Leukocyte Esterase Trace Zohra/uL (Negative) 01/22/17 18:00 Urine RBC (Auto) 3 /hpf (0-3) 01/22/17 18:00 Urine Microscopic WBC 5 /hpf (0-5) 01/22/17 18:00 Ur Squamous Epith Cells < 1 /hpf (0-5) 01/22/17 18:00 RPR Nonreactive (NONREACTIVE) 01/23/17 10:50 - Hospital Course Hospital Course: 77 yo F PMHx of left nephrectomy due to renal cancer in ', Syncope, and dizziness is admitted due to dizziness and instability when trying to ambulate. Neurology, Dr. Baumann, was consulted, EKG: normal sinus rhythm, CT head:Dilated ventricles out of proportion to the sulci and gyri, communicating hydrocephalus cannot be excluded, EEG: no seizures, Brain MRI: Marked dilatation of the 3rd and lateral ventricles, scatter white matter ischemic changes, CXR:no active disease, Carotid Artery Ultrasound: R ICA stenosis less than 50%, L ICA 50-69% stenosis. As per Neuro, no intervantion needed at this point, f/u outpt and pt will benefit from Vestibular Therapy, PT and gait training. During stay, pt admited to be depressed after of few loved once. Pt was discharged to Acute Rehab on Celexa 10mg PO daily, ASA 81 PO daily, Lipitor 40mg PO daily, and instructed to follow up with PMD and Neurologist. - Date & Time of H&P Date of H&P: 01/23/17 Time of H&P: 01:09 Discharge Exam - Head Exam Head Exam: ATRAUMATIC, NORMAL INSPECTION, NORMOCEPHALIC - Eye Exam Eye Exam: EOMI, Normal appearance - ENT Exam ENT Exam: Mucous Membranes Moist - Neck Exam Neck exam: Full Rom - Respiratory Exam Respiratory Exam: Clear to PA & Lateral, NORMAL BREATHING PATTERN. absent: Accessory Muscle Use, Chest Wall Tenderness, Decreased Breath Sounds - Cardiovascular Exam Cardiovascular Exam: REGULAR RHYTHM, +S1, +S2. absent: Bradycardia, Tachycardia - GI/Abdominal Exam GI & Abdominal Exam: Normal Bowel Sounds, Soft. absent: Distended, Tenderness - Extremities Exam Extremities exam: normal inspection, pedal pulses present - Back Exam Back exam: absent: CVA tenderness (L), CVA tenderness (R) - Neurological Exam Neurological exam: Alert, CN II-XII Intact, Oriented x3 - Psychiatric Exam Psychiatric exam: Flat Affect - Skin Skin Exam: Dry, Intact, Normal Color, Warm Discharge Plan - Follow Up Plan Condition: STABLE Disposition: TRANSF TO SNF Instructions: Near Syncope (ED), Lightheadedness (ED), Dizziness (ED), Syncope (DC), Syncope (GEN) Referrals: [facility] [Outside]
--- NOTE | 2017-02-06 11:52 | EEG ---
DATE: 01/23/2017 This is a 16-channel electroencephalogram of awake and drowsy adult. During the study, photic stimulation was performed. Hyperventilation was not performed. The resting electroencephalogram consists of 8 to 9 Hz moderate voltage alpha activities seen at parietal and occipital leads. Anteriorly, fast activity superimposed with 2 to 3 Hz and delta activity seen at frontal and central leads. Intermittent movement artifact contamination at the background rhythm. The photic stimulation did not evoke driving response noted after 2 to 20 Hz. IMPRESSION: This is a normal electroencephalogram of awake and drowsy adult. During the study, *------* paroxysmal activities nor focal slowing noted. Lester Baumann MD
== END 2017-01-24 13:41 | DRG 149 ==
LOC: H.ER 14:45 → H.ERHOLD 21:48 → H.TEL 01-23 03:06 → OBSVTOIN 01-23 15:25 → H.MEDSURG1 01-24 10:19
PROVIDERS: ADMIT Family Medicine Geriatric Medicine; ATTEND Family Medicine Geriatric Medicine
DX: R42 Dizziness and giddiness (principal); F32.9 Major depressive disorder, single episode, unspecified; R26.0 Ataxic gait; R55 Syncope and collapse; N18.9 Chronic kidney disease, unspecified; Z85.528 Personal history of other malignant neoplasm of kidney; Z90.5 Acquired absence of kidney; Z87.891 Personal history of nicotine dependence

== ENCOUNTER 2017-09-28 12:08 | Inpatient (IN) | payer MEDICARE ==
[2017-09-28 12:08] VITALS: BMI 22.6
[2017-09-28] MEDS ORDERED: Sodium Chloride 0.9% 1,000 ML IV STA ×2 (12:46→14:04)
[2017-09-28 13:02] LABS: BASO # 0.1 K/uL (0.0-0.2); BASO % 0.6 % (0.0-2.0); EOS # 0.2 K/uL (0.0-0.7); HEMOGLOBIN 12.9 g/dL (12.0-16.0); LYMPH # 1.9 K/uL (1.0-4.3); LYMPH % 12.2 % (20.0-40.0); MEAN CORPUSCULAR HEMOGLOBIN 27.5 pg (27.0-31.0); MEAN CORPUSCULAR HGB CONC 33.1 g/dL (33.0-37.0); MEAN PLATELET VOLUME 7.6 fl (7.2-11.7); MONO # 1.1 K/uL (0.0-0.8); NEUT # 12.6 K/uL (1.8-7.0); NEUT % 79.2 % (50.0-75.0); RBC 4.7 Mil/uL (3.80-5.20); RED CELL DISTRIBUTION WIDTH 15.4 % (11.5-14.5); WHITE BLOOD COUNT 15.9 K/uL (4.8-10.8)
[2017-09-28 13:11] LABS: INR 1.2 (0.9-1.2); PARTIAL THROMBOPLASTIN TIME 29.6 Seconds (25.6-37.1)
[2017-09-28 13:18] LABS: ALB/GLOB RATIO 0.8 (1.0-2.1); ALBUMIN 3.7 g/dL (3.5-5.0); ALT/SGPT 33 U/L (9-52); AST/SGOT 75 U/L (14-36); BLOOD UREA NITROGEN 21 mg/dl (7-17); CALCIUM 9.9 mg/dL (8.4-10.2); GFR AFRICAN-AMERICAN > 60; GFR NON-AFRICAN AMERICAN > 60
[2017-09-28 13:31] LABS: B-TYPE NATRIURETIC PEPTIDE 1660 pg/ml (0-900)
--- NOTE | 2017-09-28 14:15 | RAD ---
HISTORY: SOB COMPARISON: Chest radiographs 01/22/2017. FINDINGS: LUNGS: No active pulmonary disease. PLEURA: No significant pleural effusion identified, no pneumothorax apparent. CARDIOVASCULAR: Normal. OSSEOUS STRUCTURES: No significant abnormalities. VISUALIZED UPPER ABDOMEN: Normal. OTHER FINDINGS: None. IMPRESSION: No interval acute cardiopulmonary disease appreciated.
--- NOTE | 2017-09-28 14:46 | ED PDOC ---
HPI: Trauma/Fall - HPI Time Seen by Provider: 09/28/17 12:26 Chief Complaint (Nursing): Weakness/Neurological Deficit Chief Complaint (Provider): Weakness/Neurological Deficit History Per: Patient, EMS History/Exam Limitations: no limitations Onset/Duration Of Symptoms: Days (x3) Injury Occurred (Timing): Days Ago: (x3) Additional Complaint(s): 77 year old female presents to the emergency department via EMS for an evaluation of a fall occurred 3 days ago, in which, patient remained on the floor of her home. She reported mild headache, palpitations, feeling thirsty and left knee pain upon arrival. Patient stated she does not recall fall event and is unsure if she loss conscious. She also denied any neck, back or abdomen pain. PMD: none provided Past Medical History Reviewed: Historical Data, Nursing Documentation, Vital Signs Vital Signs: Last Vital Signs Temp 98.8 F 09/28/17 15:07 Pulse 107 H 09/28/17 15:07 Resp 20 09/28/17 15:07 BP 123/98 H 09/28/17 15:07 Pulse Ox 98 09/28/17 15:07 - Medical History PMH: Chronic Kidney Disease Denies: HIV - Surgical History Surgical History: No Surg Hx - Family History Family History: States: Unknown Family Hx - Living Arrangements Living Arrangements: Alone - Social History Current smoker - smoking cessation education provided: No Alcohol: None Drugs: Denies - Home Medications Home Medications: Ambulatory Orders Medication Instructions Recorded Bone Supplement 1 tab PO DAILY 09/28/17 Cu/Se/Vit A/Vit C/Vit E/Zinc 1 tab PO DAILY 09/28/17 [Ocuvite] - Allergies Allergies/Adverse Reactions: Allergies Allergy/AdvReac Type Severity Reaction Status Date / Time No Known Allergies Allergy Verified 09/28/17 12:18 Review of Systems ROS Statement: Except As Marked, All Systems Reviewed And Found Negative Constitutional: Positive for: Weakness Cardiovascular: Positive for: Palpitations Gastrointestinal: Positive for: Other (thirsty). Negative for: Abdominal Pain Musculoskeletal: Positive for: Leg Pain (left knee). Negative for: Neck Pain, Back Pain Neurological: Positive for: Headache (mild), Dizziness Physical Exam - Reviewed Nursing Documentation Reviewed: Yes Vital Signs Reviewed: Yes - Physical Exam Appears: Positive for: No Acute Distress (with dehydrated appearance). Negative for: Well Head Exam: Positive for: ATRAUMATIC, NORMAL INSPECTION, NORMOCEPHALIC Skin: Positive for: Normal Color (without skin breakdown), Warm, Dry Eye Exam: Positive for: EOMI, Normal appearance, PERRL ENT: Positive for: Normal ENT Inspection Neck: Positive for: Normal Cardiovascular/Chest: Positive for: Tachycardia Respiratory: Positive for: Normal Breath Sounds. Negative for: Decreased Breath Sounds, Wheezing, Respiratory Distress Gastrointestinal/Abdominal: Positive for: Normal Exam, Soft. Negative for: Tenderness Back: Positive for: Normal Inspection. Negative for: L CVA Tenderness, R CVA Tenderness Extremity: Positive for: Normal ROM (bilateral knees and legs with 4/5 strength) , Swelling (left knee), Other (stable hip with full ROM). Negative for: Deformity (upper/lower) Neurologic/Psych: Positive for: Alert, Oriented (to self and hospital). Negative for: Motor/Sensory Deficits - Laboratory Results Result Diagrams: 09/28/17 12:59 09/28/17 12:59 - ECG O2 Sat by Pulse Oximetry: 99 (RA) Pulse Ox Interpretation: Normal Medical Decision Making Medical Decision Making: Initial Impression: Weakness; Left knee pain Initial Plan: * CT head without contrast * EKG * BNP * CMP * CPK * Drug screen, urine * Troponin I * CBC * PTT * PT * CXR * Xray knee (left) * NS 1,000ml IV per 125mls/hr * Tylenol 650mg PO * Xray pelvis ____ Time: 1218 --EKG: STV vs. sinus tachycardia. HR revealed AFib. --Patient reported feeling anxious. --Ativan 0.25mg IVP and Cardizem 10mg IVP ordered. ____ Time: 1413 --CXR FINDINGS: LUNGS: No active pulmonary disease. PLEURA: No significant pleural effusion identified, no pneumothorax apparent. CARDIOVASCULAR: Normal. OSSEOUS STRUCTURES: No significant abnormalities. VISUALIZED UPPER ABDOMEN: Normal. OTHER FINDINGS: None. IMPRESSION: No interval acute cardiopulmonary disease appreciated. Time: 1415 --Upon re-evaluation, heart rate showed improvement with medications. --Patient will be admitted for elevated total CK levels, dehydration and new onset of atrial fibrillation. --Discussed case with family practice resident. Time: 1531 --CT head FINDINGS: HEMORRHAGE: No intracranial hemorrhage. BRAIN: No mass effect or edema. No atrophy or chronic microvascular ischemic changes. VENTRICLES: Dilatation of 3rd and 4th and lateral ventricles. Most likely, this reflects communicating hydrocephalus. This is unchanged in extent compared to prior head CT examination. There is no midline shift. CALVARIUM: Unremarkable. PARANASAL SINUSES: Unremarkable as visualized. No significant inflammatory changes. MASTOID AIR CELLS: Unremarkable as visualized. No inflammatory changes. OTHER FINDINGS: None. IMPRESSION: No intracranial hemorrhage. Dilated 3rd, 4th and lateral ventricles. Most likely, communicating hydrocephalus. No change from 01/22/2017. No additional abnormality. Time: 1532 --Xray knee (left) FINDINGS: BONES: Normal. No fracture. JOINTS: Mild tricompartmental osteoarthritis. No articular erosion. JOINT EFFUSION: Small OTHER FINDINGS: None. IMPRESSION: Mild tricompartmental osteoarthritis. Small joint effusion. No acute fracture. Time: 1533 --Xray pelvis FINDINGS: BONES: Pelvic Bones: Unremarkable. Hips: Grossly unremarkable. JOINTS: Sacroiliac Joints: Unremarkable. Pubic Symphysis: Unremarkable. OTHER FINDINGS: None. IMPRESSION: Unremarkable radiographs of the pelvis. Scribe Attestation: Documented by Lizbeth Ghosh, acting as a scribe for Gene Acuna III, DO. Provider Scribe Attestation: All medical record entries made by the Scribe were at my direction and personally dictated by me. I have reviewed the chart and agree that the record accurately reflects my personal performance of the history, physical exam, medical decision making, and the department course for this patient. I have also personally directed, reviewed, and agree with the discharge instructions and disposition.
--- NOTE | 2017-09-28 15:32 | CT ---
PROCEDURE: CT HEAD WITHOUT CONTRAST. HISTORY: fall on ground x3d COMPARISON: 01/22/2017 TECHNIQUE: Axial computed tomography images were obtained through the head/brain without intravenous contrast. Radiation dose: Total exam DLP = 920.21 mGy-cm. This CT exam was performed using one or more of the following dose reduction techniques: Automated exposure control, adjustment of the mA and/or kV according to patient size, and/or use of iterative reconstruction technique. FINDINGS: HEMORRHAGE: No intracranial hemorrhage. BRAIN: No mass effect or edema. No atrophy or chronic microvascular ischemic changes. VENTRICLES: Dilatation of 3rd and 4th and lateral ventricles. Most likely, this reflects communicating hydrocephalus. This is unchanged in extent compared to prior head CT examination. There is no midline shift. CALVARIUM: Unremarkable. PARANASAL SINUSES: Unremarkable as visualized. No significant inflammatory changes. MASTOID AIR CELLS: Unremarkable as visualized. No inflammatory changes. OTHER FINDINGS: None. IMPRESSION: No intracranial hemorrhage. Dilated 3rd, 4th and lateral ventricles. Most likely, communicating hydrocephalus. No change from 01/22/2017. No additional abnormality.
--- NOTE | 2017-09-28 15:33 | RAD ---
PROCEDURE: Left Knee Radiographs. HISTORY: Pain. COMPARISON: None. FINDINGS: BONES: Normal. No fracture. JOINTS: Mild tricompartmental osteoarthritis. No articular erosion. JOINT EFFUSION: Small OTHER FINDINGS: None. IMPRESSION: Mild tricompartmental osteoarthritis. Small joint effusion. No acute fracture.
--- NOTE | 2017-09-28 15:34 | RAD ---
PROCEDURE: Radiographs of the pelvis. HISTORY: fall COMPARISON: None. FINDINGS: BONES: Pelvic Bones: Unremarkable. Hips: Grossly unremarkable. JOINTS: Sacroiliac Joints: Unremarkable. Pubic Symphysis: Unremarkable. OTHER FINDINGS: None. IMPRESSION: Unremarkable radiographs of the pelvis.
[2017-09-28 16:22] LABS: BARBITURATES, UR NEGATIVE (NEGATIVE); BENZODIAZEPINES, UR NEGATIVE (NEGATIVE); OPIATES, UR NEGATIVE (NEGATIVE); PHENCYCLIDINE, UR NEGATIVE (NEGATIVE)
--- NOTE | 2017-09-28 17:59 | CP.PCM.HP ---
History of Present Illness - History of Present Illness History of Present Illness: 77 yo F with PMHx of left nephrectomy due to renal cancer (pt does not remember what hospital or exact year, records of past admissions say 2006), hydrocephalus (admission in 01/2017), multiple falls presented to the ED today after calling 911 to her house. Pt states she fell three days ago, thinks she hit her head but did not lose consciousness. Pt states she laid on the floor for three days, and was in too much pain to move until today, when she crawled to the phone and called for help, which lead to EMS coming and breaking down her door. She currently complains of left knee pain, which she states is chronic , and generally feeling weak, which she attributes to not eating for three days. Otherwise she has no other complaints; presently denies dizziness, headache, chest pain, shortness of breath, cough, abdominal pain, nausea, vomiting, issues urinating, blood in urine or stool. States she was dizzy and thirsty when she was brought to ED, but at the time of this evaluation, pt had eaten lunch and drank water. Pt states that at baseline she ambulates with a cane. PMD: none; was seen at [facility] clinic one time after last discharge. States she does not have a PMD, does not see any doctors. PMH: renal carcinoma? hydrocephalus (from past admission) Past Surg hx: left nephrectomy PastOBGYN hx: LMP at age 45 Social hx: Former smoker (2ppd x 50 yrs, quit in 2004). Denies alcohol/drug use. Lives alone in [place], no family nearby, states she has a friend in [facility]. Allergies: none Medications: none Next of kin/person to notify: friend Lauren in [facility] [phone] Code Status - Patient explicitly verbalized she does not want to be resuscitated, does not want chest compressions, does not want to be intubated. ED RN Yoselin Webster present at/witnessed this discussion. ED course: EKG- Atrial fibrillation with RVR; received diltiazem 10 mg IVP and rate controlled WBC 15.9 BNP elevated 1660 CMP remarkable for BUN 25; AST 75, Na and K wnl Drug screen neg Troponin neg x1 Coag studies wnl NS 1L bolus Tylenol 650 mg PO Imaging in ED: -CXR Impression: No interval acute cardiopulmonary disease appreciated. -CT head: No intracranial hemorrhage. Dilated 3rd, 4th and lateral ventricles. Most likely, communicating hydrocephalus. No change from 01/22/2017. No additional abnormality. -Xray knee (left): Mild tricompartmental osteoarthritis. Small joint effusion. No acute fracture. -Xray pelvis- unremarkable radiographs of the pelvis. Present on Admission - Present on Admission Any Indicators Present on Admission: No Review of Systems - Review of Systems All systems: reviewed and no additional remarkable complaints except - Constitutional Constitutional: Weakness - Musculoskeletal Musculoskeletal: Arthralgias Additional comments: knee pain Past Patient History - Past Medical History & Family History Past Medical History?: Yes - Past Social History Smoking Status: Former Smoker (2ppd x 50 yrs) Alcohol: None Drugs: Denies - CARDIAC Hx Cardiac Disorders: No - PULMONARY Hx Respiratory Disorders: No - NEUROLOGICAL Hx Neurological Disorder: Yes Other/Comment: hydrocephalus - HEENT Hx HEENT Problems: No - RENAL Hx Chronic Kidney Disease: Yes Hx Renal (Kidney) Cancer: Yes (2006, nephrectomy as per history) - ENDOCRINE/METABOLIC Hx Endocrine Disorders: No - HEMATOLOGICAL/ONCOLOGICAL Hx Blood Disorders: No - INTEGUMENTARY Hx Dermatological Problems: No - MUSCULOSKELETAL/RHEUMATOLOGICAL Hx Musculoskeletal Disorders: Yes Hx Falls: No Hx Unsteady Gait: Yes (uses cane) - GASTROINTESTINAL Hx Gastrointestinal Disorders: No - GENITOURINARY/GYNECOLOGICAL Hx Genitourinary Disorders: No - PSYCHIATRIC Hx Psychophysiologic Disorder: No Hx Substance Use: No - SURGICAL HISTORY Hx Surgeries: Yes (L nephrectomy) - ANESTHESIA Hx Anesthesia: Yes Hx Anesthesia Reactions: No Hx Malignant Hyperthermia: No Meds Allergies/Adverse Reactions: Allergies Allergy/AdvReac Type Severity Reaction Status Date / Time No Known Allergies Allergy Verified 09/28/17 12:18 Physical Exam - Constitutional Appears: No Acute Distress - Head Exam Head Exam: ATRAUMATIC - Eye Exam Eye Exam: EOMI, Normal appearance - ENT Exam ENT Exam: Mucous Membranes Moist - Neck Exam Neck exam: Positive for: Normal Inspection. Negative for: Lymphadenopathy, Tenderness - Respiratory Exam Respiratory Exam: Clear to Auscultation Bilateral, NORMAL BREATHING PATTERN. absent: Wheezes, Respiratory Distress - Cardiovascular Exam Cardiovascular Exam: Irregular Rhythm Additional comments: aortic murmur - GI/Abdominal Exam GI & Abdominal Exam: Normal Bowel Sounds, Soft. absent: Distended, Tenderness - Neurological Exam Neurological exam: Alert - Skin Skin Exam: Dry, Normal Color, Warm Results - Vital Signs Recent Vital Signs: Last Vital Signs Temp 98.6 F 09/28/17 17:56 Pulse 102 H 09/28/17 17:56 Resp 20 09/28/17 17:56 BP 108/66 09/28/17 17:56 Pulse Ox 96 09/28/17 17:56 - Labs Result Diagrams: 09/28/17 12:59 09/28/17 12:59 Labs: Laboratory Results - last 24 hr 09/28/17 09/28/17 09/28/17 12:59 12:59 12:59 WBC 15.9 H D RBC 4.70 Hgb 12.9 Hct 39.0 MCV 83.0 MCH 27.5 MCHC 33.1 RDW 15.4 H Plt Count 536 H D MPV 7.6 Neut % (Auto) 79.2 H Lymph % (Auto) 12.2 L [place] % (Auto) 7.0 Eos % (Auto) 1.0 Baso % (Auto) 0.6 Neut # (Auto) 12.6 H Lymph # (Auto) 1.9 [place] # (Auto) 1.1 H Eos # (Auto) 0.2 Baso # (Auto) 0.1 PT 13.0 INR 1.2 APTT 29.6 Sodium 144 Potassium 3.7 Chloride 101 Carbon Dioxide 22 Anion Gap 25 H BUN 21 H Creatinine 0.9 Est GFR ( Amer) > 60 Est GFR (Non-Af Amer) > 60 Random Glucose 106 H Calcium 9.9 Total Bilirubin 0.7 AST 75 H ALT 33 Alkaline Phosphatase 120 Total Creatine Kinase 1457 H Troponin I 0.0190 NT-Pro-B Natriuret Pep 1660 H Total Protein 8.1 Albumin 3.7 Globulin 4.4 H Albumin/Globulin Ratio 0.8 L Urine Opiates Screen Urine Methadone Screen Ur Barbiturates Screen Ur Phencyclidine Scrn Ur Amphetamines Screen U Benzodiazepines Scrn U Oth Cocaine Metabols U Cannabinoids Screen 09/28/17 15:55 WBC RBC Hgb Hct MCV MCH MCHC RDW Plt Count MPV Neut % (Auto) Lymph % (Auto) [place] % (Auto) Eos % (Auto) Baso % (Auto) Neut # (Auto) Lymph # (Auto) [place] # (Auto) Eos # (Auto) Baso # (Auto) PT INR APTT Sodium Potassium Chloride Carbon Dioxide Anion Gap BUN Creatinine Est GFR ( Amer) Est GFR (Non-Af Amer) Random Glucose Calcium Total Bilirubin AST ALT Alkaline Phosphatase Total Creatine Kinase Troponin I NT-Pro-B Natriuret Pep Total Protein Albumin Globulin Albumin/Globulin Ratio Urine Opiates Screen Negative Urine Methadone Screen Negative Ur Barbiturates Screen Negative Ur Phencyclidine Scrn Negative Ur Amphetamines Screen Negative U Benzodiazepines Scrn Negative U Oth Cocaine Metabols Negative U Cannabinoids Screen Negative Assessment & Plan - Assessment and Plan (Free Text) Assessment: 77 yo F with hx L nephrectomy and hydrocephalus admitted for rhabdomyolisis s/p fall 3 days ago. Plan: Assessment and Plan # Rhabdomyolisis Likely due to pt's fall and prolonged time (3 days) spent on floor. CPK 1457; CMP: BUN/Cr 25/0.9; GFR > 60, Na 144, K 3.7. Pt received 1L bolus in ED. - Continue fluid hydration, NS @ 150 ml/hr - repeat CPK, CMP in am - Uric acid, phosphorous, urinalysis pending - Monitor ins and outs # Atrial Fibrillation New onset, admitted to telemetry. S/p diltiazem 10 mg IVP, now rate controlled. Troponin neg x1. - trend troponin q8hrs - proBNP 1660 - repeat coag studies in am - cardiology consult - repeat EKG in am # SIRS WBC 15.9, HR > 90 on admission, afebrile. WBC elevation may be reactive, HR elevation may be due to A-fib. - Urinalysis - Fluid hydration - Repeat CBC in am - Monitor vitals # Hydrocephalus No change from prior study on head CT. Hx of falls. - Neurology consult - PT/OT eval and treat # DVT prophylaxis - Lovenox 40 mg SC
[2017-09-28] MEDS ORDERED: Sodium Chloride 0.9% 1,000 ML IV SCH (20:45)
[2017-09-29 04:14] LABS: SQUAMOUS EPITHIAL 4 /hpf (0-5); URINE BACTERIA MANY (<OCC); URINE BILIRUBIN NEGATIVE (NEGATIVE); URINE BLOOD SMALL (NEGATIVE); URINE CLARITY CLOUDY (Clear); URINE COLOR YELLOW (YELLOW); URINE GLUCOSE (UA) NEG (Normal); URINE LEUKOCYTE ESTERASE TRACE Leu/uL (Negative); URINE PROTEIN NEGATIVE (NEGATIVE); URINE UROBILINOGEN 0.2-1.0 mg/dL (0.2-1.0)
[2017-09-29 07:32] LABS: BASO % 0.5 % (0.0-2.0); EOS # 0.4 K/uL (0.0-0.7); EOS % 4.2 % (0.0-4.0); HEMOGLOBIN 9.7 g/dL (12.0-16.0); LYMPH # 1.7 K/uL (1.0-4.3); LYMPH % 19.8 % (20.0-40.0); MEAN CELL VOLUME 83.2 fl (81.0-99.0); MEAN CORPUSCULAR HEMOGLOBIN 27.3 pg (27.0-31.0); MEAN CORPUSCULAR HGB CONC 32.8 g/dL (33.0-37.0); MEAN PLATELET VOLUME 7.7 fl (7.2-11.7); MONO # 0.7 K/uL (0.0-0.8); MONO % 8.5 % (0.0-10.0); NEUT # 5.8 K/uL (1.8-7.0); NRBC % 0.1 % (0.0-0.0); RBC 3.55 Mil/uL (3.80-5.20); RED CELL DISTRIBUTION WIDTH 15.4 % (11.5-14.5); WHITE BLOOD COUNT 8.7 K/uL (4.8-10.8)
[2017-09-29 08:02] LABS: ALB/GLOB RATIO 0.7 (1.0-2.1); ALBUMIN 2.5 g/dL (3.5-5.0); ALT/SGPT 39 U/L (9-52); AST/SGOT 40 U/L (14-36); BLOOD UREA NITROGEN 25 mg/dl (7-17); GFR AFRICAN-AMERICAN > 60; GFR NON-AFRICAN AMERICAN 54; URIC ACID 6.3 mg/Dl (2.2-7.5)
[2017-09-29 08:13] LABS: INR 1.1 (0.9-1.2); PARTIAL THROMBOPLASTIN TIME 27.8 Seconds (25.6-37.1); PROTHROMBIN TIME 12.2 Seconds (9.8-13.1)
--- NOTE | 2017-09-29 08:23 | CP.PCM.PN ---
Subjective - Date & Time of Evaluation Date of Evaluation: 09/29/17 Time of Evaluation: 08:23 - Subjective Subjective: 77F seen and examined at bedside with attending. Patient reports feeling much better. She says she is hungry and denies any SOB , chest pain, pain/burning or urinary frequency. She does report that she often feels a "little dizzy" on standing from a sitting position. Otherwise, she has no acute complaints. Objective - Vital Signs/Intake and Output Vital Signs (last 24 hours): Temp Pulse Resp BP Pulse Ox 36.4 C L 86 18 100/65 95 09/29/17 07:42 09/29/17 07:42 09/29/17 07:42 09/29/17 07:42 09/29/17 07:42 - Medications Medications: Current Medications Acetaminophen (Tylenol 325mg Tab) 650 mg PO Q6 PRN PRN Reason: Pain, moderate (4-7) Enoxaparin Sodium (Lovenox) 40 mg SC DAILY PRACHI PRN Reason: Protocol Diltiazem HCl 125 mg/ Sodium (Chloride) 125 mls @ 5 mls/hr IV .Q24H ONE; 5 MG/ HR PRN Reason: Protocol Stop: 09/29/17 13:15 Sodium Chloride (Sodium Chloride 0.9%) 1,000 mls @ 150 mls/hr IV .Q6H40M [facility] Stop: 09/29/17 20:33 Last Admin: 09/28/17 20:47 Dose: 150 mls/hr - Labs Labs: 09/29/17 05:43 09/29/17 05:43 PT 12.2 Seconds (9.8-13.1) 09/29/17 05:43 INR 1.1 (0.9-1.2) 09/29/17 05:43 APTT 27.8 Seconds (25.6-37.1) 09/29/17 05:43 - Constitutional Appears: Well, Non-toxic - Head Exam Additional comments: Slight ecchymosis at RIGHT forehead - Eye Exam Eye Exam: Normal appearance - ENT Exam ENT Exam: Mucous Membranes Moist, Normal Exam - Neck Exam Neck Exam: Full ROM, Normal Inspection - Respiratory Exam Respiratory Exam: Clear to Ausculation Bilateral, NORMAL BREATHING PATTERN - Cardiovascular Exam Cardiovascular Exam: REGULAR RHYTHM, +S1, +S2, Murmur (aortic stenosis) - GI/Abdominal Exam GI & Abdominal Exam: Soft - Extremities Exam Extremities Exam: Full ROM, Joint Swelling (LEFT small knee effusion, ) - Neurological Exam Neurological Exam: Alert, Awake, Oriented x3 - Psychiatric Exam Psychiatric exam: Normal Affect, Normal Mood - Skin Skin Exam: Dry, Warm Assessment and Plan - Assessment and Plan (Free Text) Assessment: 77F admitted after fall with improving CPK, cardiology and neurology to evaluate for fall and no further arrhythmias noted overnight. Orthostatics were negative, PT recommending TCU, and repeat urinalysis positive. Troponins negative x3 and EKG NSR Plan: - A-fib: transient, resolved, no further events, Cardiology consult (Dr Sotelo) reports echo is WNL and no further intervention necessary. - Fall: Cardiology recs as above, neurology consult is pending, PT recommending TCU. - Leukocytosis: resolved, UA positive, empiric antibiotics started - LEFT knee edema: elevation and ice PRN, PT evaluation - Anemia: Noted after hydration, fecal occult blood - DVT Prophyalxis: Lovenox, SC
[2017-09-29] MEDS: Enoxaparin 40 mg Syringe SC SCH (09:11)
--- NOTE | 2017-09-29 13:39 | CP.PCM.CON ---
History of Present Illness - History of Present Illness History of Present Illness: This 77-year-old female, who lives alone had a fall after tripping when she stepped out of her bed. The patient is very precise in that she spent 2 days on the floor unable to help herself. Eventually she managed to attract attention of neighbors who called emergency medical services and her door had to be broken down to get her help. The patient arrived in the emergency room and had atrial fibrillation which promptly resolved after intravenous Cardizem was administered. She gives history of a similar fall in the past. She denies any lightheaded spells or unsteady gait. She looks after her apartment and looks after herself quite well. She is shops for herself and cooks for herself and did so on apartment. She is fully aware of events surrounding surrounding her fall and eventual arrival in the emergency room. She denies any history of hypertension or diabetes or prior myocardial infarction or symptoms of congestive cardiac failure. On physical examination this is an elderly lady who is fully alert, awake and coherent. She is afebrile with a pulse rate of 78 bpm and regular and a blood pressure of 140/70 mmHg. Her jugular venous pressure was not elevated and there was no edema over approximately. Her pedal pulses were well felt. Were no carotid bruits. The apex was in the fifth space the first and second heart sounds were normal. There was a brief ejection systolic murmur in the aortic area. There was no gallop rhythm and there were no rales. Her abdomen was soft liver and spleen were not palpable. Her electrocardiogram in the emergency room shows atrial fibrillation, which on subsequent electro-cardiograms has reverted to sinus rhythm. Her echocardiogram shows normal left ventricular size and systolic function with evidence off an aortic valve sclerosis and a mild systolic gradient of 36 mmHg. There was also moderate aortic regurgitation. There was no significant pulmonary hypertension with her inferior vena cava of normal size which collapses radially with deep inspiration. Her lab data was noted. Impression: Transient atrial fibrillation. Dehydration with muscle injury secondary to fall. The patient is hemodynamically stable and doesn't warrant any further intervention at this point. Past Patient History - Past Medical History & Family History Past Medical History?: Yes - Past Social History Smoking Status: Former Smoker (2ppd x 50 yrs) Alcohol: None Drugs: Denies - CARDIAC Hx Cardiac Disorders: No - PULMONARY Hx Respiratory Disorders: No - NEUROLOGICAL Hx Neurological Disorder: Yes Other/Comment: hydrocephalus - HEENT Hx HEENT Problems: No - RENAL Hx Chronic Kidney Disease: Yes Hx Renal (Kidney) Cancer: Yes (2006, nephrectomy as per history) - ENDOCRINE/METABOLIC Hx Endocrine Disorders: No - HEMATOLOGICAL/ONCOLOGICAL Hx Blood Disorders: No - INTEGUMENTARY Hx Dermatological Problems: No - MUSCULOSKELETAL/RHEUMATOLOGICAL Hx Musculoskeletal Disorders: Yes Hx Falls: No Hx Unsteady Gait: Yes (uses cane) - GASTROINTESTINAL Hx Gastrointestinal Disorders: No - GENITOURINARY/GYNECOLOGICAL Hx Genitourinary Disorders: No - PSYCHIATRIC Hx Psychophysiologic Disorder: No Hx Substance Use: No - SURGICAL HISTORY Hx Surgeries: Yes (L nephrectomy) - ANESTHESIA Hx Anesthesia: Yes Hx Anesthesia Reactions: No Hx Malignant Hyperthermia: No Meds Allergies/Adverse Reactions: Allergies Allergy/AdvReac Type Severity Reaction Status Date / Time No Known Allergies Allergy Verified 09/28/17 12:18 - Medications Medications: Current Medications Acetaminophen (Tylenol 325mg Tab) 650 mg PO Q6 PRN PRN Reason: Pain, moderate (4-7) Enoxaparin Sodium (Lovenox) 40 mg SC DAILY PRACHI PRN Reason: Protocol Last Admin: 09/29/17 09:11 Dose: 40 mg Results - Vital Signs Recent Vital Signs: Last Vital Signs Temp 98.1 F 09/29/17 12:00 Pulse 81 09/29/17 12:00 Resp 18 09/29/17 12:00 BP 149/67 09/29/17 12:00 Pulse Ox 98 09/29/17 12:00 - Labs Result Diagrams: 09/29/17 05:43 09/29/17 05:43 Labs: Laboratory Results - last 24 hr 09/28/17 09/28/17 09/29/17 15:55 21:01 03:45 WBC RBC Hgb Hct MCV MCH MCHC RDW Plt Count MPV Neut % (Auto) Lymph % (Auto) [place] % (Auto) Eos % (Auto) Baso % (Auto) Neut # (Auto) Lymph # (Auto) [place] # (Auto) Eos # (Auto) Baso # (Auto) PT INR APTT Sodium Potassium Chloride Carbon Dioxide Anion Gap BUN Creatinine Est GFR ( Amer) Est GFR (Non-Af Amer) Random Glucose Uric Acid Calcium Phosphorus Total Bilirubin AST ALT Alkaline Phosphatase Total Creatine Kinase Troponin I 0.1070 Total Protein Albumin Globulin Albumin/Globulin Ratio Urine Color Yellow Urine Clarity Cloudy Urine pH 5.0 Ur Specific [place] 1.023 Urine Protein Negative Urine Glucose (UA) Neg Urine Ketones Trace Urine Blood Small Urine Nitrate Positive H Urine Bilirubin Negative Urine Urobilinogen 0.2-1.0 Ur Leukocyte Esterase Trace Urine RBC (Auto) 1 Ur Squamous Epith Cells 4 Urine Bacteria Many H Urine Opiates Screen Negative Urine Methadone Screen Negative Ur Barbiturates Screen Negative Ur Phencyclidine Scrn Negative Ur Amphetamines Screen Negative U Benzodiazepines Scrn Negative U Oth Cocaine Metabols Negative U Cannabinoids Screen Negative 09/29/17 09/29/17 09/29/17 05:43 05:43 05:43 WBC 8.7 RBC 3.55 L Hgb 9.7 L D Hct 29.6 L MCV 83.2 MCH 27.3 MCHC 32.8 L RDW 15.4 H Plt Count 365 D MPV 7.7 Neut % (Auto) 67.0 Lymph % (Auto) 19.8 L [place] % (Auto) 8.5 Eos % (Auto) 4.2 H Baso % (Auto) 0.5 Neut # (Auto) 5.8 Lymph # (Auto) 1.7 [place] # (Auto) 0.7 Eos # (Auto) 0.4 Baso # (Auto) 0.0 PT 12.2 INR 1.1 APTT 27.8 Sodium 140 Potassium 3.9 Chloride 108 H Carbon Dioxide 22 Anion Gap 14 BUN 25 H Creatinine 1.0 Est GFR ( Amer) > 60 Est GFR (Non-Af Amer) 54 Random Glucose 104 Uric Acid 6.3 Calcium 8.0 L Phosphorus 3.0 Total Bilirubin 0.2 AST 40 H D ALT 39 Alkaline Phosphatase 70 Total Creatine Kinase 590 H Troponin I 0.0640 Total Protein 5.9 L Albumin 2.5 L D Globulin 3.4 Albumin/Globulin Ratio 0.7 L Urine Color Urine Clarity Urine pH Ur Specific [place] Urine Protein Urine Glucose (UA) Urine Ketones Urine Blood Urine Nitrate Urine Bilirubin Urine Urobilinogen Ur Leukocyte Esterase Urine RBC (Auto) Ur Squamous Epith Cells Urine Bacteria Urine Opiates Screen Urine Methadone Screen Ur Barbiturates Screen Ur Phencyclidine Scrn Ur Amphetamines Screen U Benzodiazepines Scrn U Oth Cocaine Metabols U Cannabinoids Screen
--- NOTE | 2017-09-29 14:44 | CARD ---
APPROVED REPORT EXAM: Two-dimensional and M-mode echocardiogram with Doppler and color Doppler. Other Information Quality : AverageRhythm : INDICATION Abnormal EKG/Arrhythmia Atrial Fibrillation 2D DIMENSIONS IVSd1.15 (0.7-1.1cm)LVDd3.75 (3.9-5.9cm) LVOT Diameter2.01 (1.8-2.4cm)PWd0.96 (0.7-1.1cm) LVDs2.94 (2.5-4.0cm)FS (%) 21.6 % M-Mode DIMENSIONS Left Atrium (MM)2.74 (2.5-4.0cm)IVSd1.18 (0.7-1.1cm) Aortic Root2.43 (2.2-3.7cm)LVDd5.14 (4.0-5.6cm) Aortic Cusp Exc.1.39 (1.5-2.0cm)PWd1.24 (0.7-1.1cm) FS (%) 37 %LVDs3.24 (2.0-3.8cm) Aortic Valve AoV Peak Bqviuwks199.8cm/sAoV VTI59.4cmAO Peak GR.35mmHg LVOT Peak Bgvuazrk981.2cm/sLVOT VTI31.99cmAO Mean GR.22mmHg STEVE (VMAX)1.31rz2VKF (VTI)1.50tq1GH P 1/2 Vdip045jj Mitral Valve MV E Zghofmvh80.3cm/sMV DECEL [id number] A Mfhpewgu208.8cm/s MV FWK47rqX/A ratio0.8MVA (PHT)2.69cm2 TDI Lateral E' Peak V9.04cm/sMedial E' Peak V7.90cm/sE/Lateral E'9.7 E/Medial E'11.1 Pulmonary Valve PV Peak Xvlppuns202.7cm/s Tricuspid Valve TR Peak Idqxmrit106ba/sRAP AHDKKLFK84tdWmRT Peak Gr.15mmHg RSPQ48zqDy LEFT VENTRICLE The left ventricle is normal size. There is normal left ventricular wall thickness. Left ventricle systolic function is normal. The Ejection Fraction is 65-70%. There is normal LV segmental wall motion. Transmitral Doppler flow pattern is Grade I-abnormal relaxation pattern. RIGHT VENTRICLE The right ventricle is normal size. There is normal right ventricular wall thickness. The right ventricular systolic function is normal. ATRIA The left atrium size is normal. The right atrium size is normal. AORTIC VALVE The aortic valve is mildly to moderately sclerotic. There is mild aortic regurgitation. A peak systolic gradient of 40 mm Hg was recorded at the AO valve. MITRAL VALVE The mitral valve is normal in structure. There is no evidence of mitral valve prolapse. There is no mitral valve stenosis. Mitral regurgitation is trace to mild. TRICUSPID VALVE The tricuspid valve is normal in structure. There is mild tricuspid regurgitation. Right ventricular systolic pressure is estimated at 33 mmHg. There is mild pulmonary hypertension. PULMONIC VALVE The pulmonary valve is normal in structure. There is no pulmonic valvular regurgitation. GREAT VESSELS The aortic root is normal in size. The IVC is normal in size and collapses >50% with inspiration. PERICARDIAL EFFUSION The pericardium appears normal. <Conclusion> The left ventricle is normal size. There is normal left ventricular wall thickness. There is normal LV segmental wall motion. Left ventricle systolic function is normal. The Ejection Fraction is 65-70%. Transmitral Doppler flow pattern is Grade I-abnormal relaxation pattern. A peak systolic gradient of 40 mm Hg was recorded at the AO valve.
--- NOTE | 2017-09-29 14:51 | CARD ---
APPROVED REPORT EKG Measurement Heart [id number] <Conclusion> Normal sinus rhythm Normal ECG
--- NOTE | 2017-09-29 15:03 | CARD ---
APPROVED REPORT EKG Measurement Heart [id number] <Conclusion> Atrial fibrillation with rapid ventricular response Marked ST abnormality, possible inferior subendocardial injury Abnormal ECG
--- NOTE | 2017-09-29 15:17 | CP.PCM.CON ---
History of Present Illness - History of Present Illness History of Present Illness: 77 yr old woman who lives alone and got out of bed quite suddenly, felt dizzy, slipped and fell on an object on the floor of her house, and was down on the ground for 48 hours. Firemen rescued her at this time. She does not state any weakness, headache, aphasia or confusion before this spell. Of note, patient has had multiple falls and this is the most recent. She was found to be in afib on admission. PMH: renal carcinoma? hydrocephalus (from past admission) Past Surg hx: left nephrectomy PastOBGYN hx: LMP at age 45 Social hx: Former smoker (2ppd x 50 yrs, quit in 2004). Denies alcohol/drug use. Lives alone in [place], no family nearby, states she has a friend in [facility]. Allergies: none Medications: none Next of kin/person to notify: friend Lauren in [facility] [phone] on exam: Normal neurological examination. Past Patient History - Past Medical History & Family History Past Medical History?: Yes - Past Social History Smoking Status: Former Smoker (2ppd x 50 yrs) Alcohol: None Drugs: Denies - CARDIAC Hx Cardiac Disorders: No - PULMONARY Hx Respiratory Disorders: No - NEUROLOGICAL Hx Neurological Disorder: Yes Other/Comment: hydrocephalus - HEENT Hx HEENT Problems: No - RENAL Hx Chronic Kidney Disease: Yes Hx Renal (Kidney) Cancer: Yes (2006, l nephrectomy as per history) - ENDOCRINE/METABOLIC Hx Endocrine Disorders: No - HEMATOLOGICAL/ONCOLOGICAL Hx Blood Disorders: No - INTEGUMENTARY Hx Dermatological Problems: No - MUSCULOSKELETAL/RHEUMATOLOGICAL Hx Musculoskeletal Disorders: Yes Hx Falls: No Hx Unsteady Gait: Yes (uses cane) - GASTROINTESTINAL Hx Gastrointestinal Disorders: No - GENITOURINARY/GYNECOLOGICAL Hx Genitourinary Disorders: No - PSYCHIATRIC Hx Psychophysiologic Disorder: No Hx Substance Use: No - SURGICAL HISTORY Hx Surgeries: Yes (L nephrectomy) - ANESTHESIA Hx Anesthesia: Yes Hx Anesthesia Reactions: No Hx Malignant Hyperthermia: No Meds Allergies/Adverse Reactions: Allergies Allergy/AdvReac Type Severity Reaction Status Date / Time No Known Allergies Allergy Verified 09/28/17 12:18 - Medications Medications: Current Medications Acetaminophen (Tylenol 325mg Tab) 650 mg PO Q6 PRN PRN Reason: Pain, moderate (4-7) Enoxaparin Sodium (Lovenox) 40 mg SC DAILY PRACHI PRN Reason: Protocol Last Admin: 09/29/17 09:11 Dose: 40 mg Results - Vital Signs Recent Vital Signs: Last Vital Signs Temp 98.1 F 09/29/17 12:00 Pulse 81 09/29/17 12:00 Resp 18 09/29/17 12:00 BP 149/67 09/29/17 12:00 Pulse Ox 98 09/29/17 12:00 - Labs Result Diagrams: 09/29/17 05:43 09/29/17 05:43 Labs: Laboratory Results - last 24 hr 09/28/17 09/28/17 09/29/17 15:55 21:01 03:45 WBC RBC Hgb Hct MCV MCH MCHC RDW Plt Count MPV Neut % (Auto) Lymph % (Auto) [place] % (Auto) Eos % (Auto) Baso % (Auto) Neut # (Auto) Lymph # (Auto) [place] # (Auto) Eos # (Auto) Baso # (Auto) PT INR APTT Sodium Potassium Chloride Carbon Dioxide Anion Gap BUN Creatinine Est GFR ( Amer) Est GFR (Non-Af Amer) Random Glucose Uric Acid Calcium Phosphorus Total Bilirubin AST ALT Alkaline Phosphatase Total Creatine Kinase Troponin I 0.1070 Total Protein Albumin Globulin Albumin/Globulin Ratio Urine Color Yellow Urine Clarity Cloudy Urine pH 5.0 Ur Specific [place] 1.023 Urine Protein Negative Urine Glucose (UA) Neg Urine Ketones Trace Urine Blood Small Urine Nitrate Positive H Urine Bilirubin Negative Urine Urobilinogen 0.2-1.0 Ur Leukocyte Esterase Trace Urine RBC (Auto) 1 Ur Squamous Epith Cells 4 Urine Bacteria Many H Urine Opiates Screen Negative Urine Methadone Screen Negative Ur Barbiturates Screen Negative Ur Phencyclidine Scrn Negative Ur Amphetamines Screen Negative U Benzodiazepines Scrn Negative U Oth Cocaine Metabols Negative U Cannabinoids Screen Negative 09/29/17 09/29/17 09/29/17 05:43 05:43 05:43 WBC 8.7 RBC 3.55 L Hgb 9.7 L D Hct 29.6 L MCV 83.2 MCH 27.3 MCHC 32.8 L RDW 15.4 H Plt Count 365 D MPV 7.7 Neut % (Auto) 67.0 Lymph % (Auto) 19.8 L [place] % (Auto) 8.5 Eos % (Auto) 4.2 H Baso % (Auto) 0.5 Neut # (Auto) 5.8 Lymph # (Auto) 1.7 [place] # (Auto) 0.7 Eos # (Auto) 0.4 Baso # (Auto) 0.0 PT 12.2 INR 1.1 APTT 27.8 Sodium 140 Potassium 3.9 Chloride 108 H Carbon Dioxide 22 Anion Gap 14 BUN 25 H Creatinine 1.0 Est GFR ( Amer) > 60 Est GFR (Non-Af Amer) 54 Random Glucose 104 Uric Acid 6.3 Calcium 8.0 L Phosphorus 3.0 Total Bilirubin 0.2 AST 40 H D ALT 39 Alkaline Phosphatase 70 Total Creatine Kinase 590 H Troponin I 0.0640 Total Protein 5.9 L Albumin 2.5 L D Globulin 3.4 Albumin/Globulin Ratio 0.7 L Urine Color Urine Clarity Urine pH Ur Specific [place] Urine Protein Urine Glucose (UA) Urine Ketones Urine Blood Urine Nitrate Urine Bilirubin Urine Urobilinogen Ur Leukocyte Esterase Urine RBC (Auto) Ur Squamous Epith Cells Urine Bacteria Urine Opiates Screen Urine Methadone Screen Ur Barbiturates Screen Ur Phencyclidine Scrn Ur Amphetamines Screen U Benzodiazepines Scrn U Oth Cocaine Metabols U Cannabinoids Screen - Imaging and Cardiology CT scan - head Status: Image reviewed by me, Report reviewed by me (ct head normal. ) Assessment & Plan - Assessment and Plan (Free Text) Assessment: 77 yr old woman, serious fall risk, no signs of neuropathy or dementia or stroke , who will need anticoagulation as per cardiology for her afib. Neurologically, she does not have any signs of stroke or seizure. I will follow her and recommend that she obtain medialert bracelet and aspirin.
--- NOTE | 2017-09-30 08:26 | CP.PCM.PN ---
Subjective - Date & Time of Evaluation Date of Evaluation: 09/30/17 Time of Evaluation: 09:15 - Subjective Subjective: Pt seen and evaluated at bedside this am; no acute events overnight. Resting comfortably in bed, denies chest pain, dizziness, headache, trouble breathing. Reports good PO intake. Objective - Vital Signs/Intake and Output Vital Signs (last 24 hours): Temp Pulse Resp BP Pulse Ox 98.7 F 73 18 163/70 H 99 09/30/17 08:00 09/30/17 08:00 09/30/17 08:00 09/30/17 08:00 09/30/17 08:00 Intake and Output: 09/30/17 09/30/17 06:59 18:59 Intake Total 240 Output Total 600 Balance -360 - Medications Medications: Current Medications Acetaminophen (Tylenol 325mg Tab) 650 mg PO Q6 PRN PRN Reason: Pain, moderate (4-7) Last Admin: 09/29/17 20:02 Dose: 650 mg Ciprofloxacin (Cipro) 250 mg PO Q12 PRACHI PRN Reason: Protocol Last Admin: 09/30/17 00:58 Dose: 250 mg Enoxaparin Sodium (Lovenox) 40 mg SC DAILY PRACHI PRN Reason: Protocol Last Admin: 09/29/17 09:11 Dose: 40 mg - Labs Labs: 09/29/17 05:43 09/29/17 05:43 PT 12.2 Seconds (9.8-13.1) 09/29/17 05:43 INR 1.1 (0.9-1.2) 09/29/17 05:43 APTT 27.8 Seconds (25.6-37.1) 09/29/17 05:43 - Constitutional Appears: Non-toxic, No Acute Distress - Head Exam Head Exam: NORMAL INSPECTION - Eye Exam Eye Exam: Normal appearance - ENT Exam ENT Exam: Mucous Membranes Moist - Respiratory Exam Respiratory Exam: Clear to Ausculation Bilateral, NORMAL BREATHING PATTERN - GI/Abdominal Exam GI & Abdominal Exam: Soft, Normal Bowel Sounds - Extremities Exam Extremities Exam: Normal Capillary Refill. absent: Calf Tenderness, Pedal Edema - Neurological Exam Neurological Exam: Alert, Awake - Psychiatric Exam Psychiatric exam: Normal Mood - Skin Skin Exam: Dry, Intact, Normal Color, Warm Assessment and Plan - Assessment and Plan (Free Text) Assessment: 77 yo F with PMH L nephrectomy secondary to renal ca, hydrocephalus, frequent falls admitted for rhabdomyolisis which is resolving, and found to have UTI. Plan: # Urinary Tract Infection Found on urinalysis. - Cirpofloxacin 200 mg IV Q12; first dose was 09/30 at 1 am # Rhabdomyolisis Pt is s/p fall and prolonged time (3 days) spent on floor. CPK 1457 on presentation. CPK 248 today; resolving. - Trend CPK # Atrial Fibrillation New onset, admitted to telemetry. S/p diltiazem 10 mg IVP, now rate controlled. Troponin neg x3. Resolved. Cardiology consult - Transient atrial fibrillation. Dehydration with muscle injury secondary to fall. The patient is hemodynamically stable and doesn't warrant any further intervention at this point. # Hydrocephalus No change from prior study on head CT. Hx of falls. - Neurology consult - Recommend medialert bracelet and aspirin. - PT/OT eval and treat - discharge recommendation TCU # DVT prophylaxis - Lovenox 40 mg SC
[2017-09-30 08:30] LABS: HEMOGLOBIN 10.1 g/dL (12.0-16.0); MEAN CELL VOLUME 83.4 fl (81.0-99.0); MEAN CORPUSCULAR HEMOGLOBIN 27.5 pg (27.0-31.0); RBC 3.66 Mil/uL (3.80-5.20); RED CELL DISTRIBUTION WIDTH 15.3 % (11.5-14.5); WHITE BLOOD COUNT 7.6 K/uL (4.8-10.8)
[2017-09-30 08:47] LABS: BLOOD UREA NITROGEN 20 mg/dl (7-17); CALCIUM 8.7 mg/dL (8.4-10.2); GFR AFRICAN-AMERICAN > 60; GFR NON-AFRICAN AMERICAN > 60
--- NOTE | 2017-09-30 09:02 | CP.PCM.PN ---
Subjective - Date & Time of Evaluation Date of Evaluation: 09/30/17 Time of Evaluation: 08:55 - Subjective Subjective: Has sat OOB and has been comfortable Sinus rhythm at physiologic rates Vital signs stable Labs show resolving CK levels Normal BUN/Creatinin (No evidence of CLARICE) Hb/Electrolytes stable Should start PT Objective - Vital Signs/Intake and Output Vital Signs (last 24 hours): Temp Pulse Resp BP Pulse Ox 98.7 F 73 18 163/70 H 99 09/30/17 08:00 09/30/17 08:00 09/30/17 08:00 09/30/17 08:00 09/30/17 08:00 Intake and Output: 09/30/17 09/30/17 06:59 18:59 Intake Total 240 Output Total 600 Balance -360 - Medications Medications: Current Medications Acetaminophen (Tylenol 325mg Tab) 650 mg PO Q6 PRN PRN Reason: Pain, moderate (4-7) Last Admin: 09/29/17 20:02 Dose: 650 mg Ciprofloxacin (Cipro) 250 mg PO Q12 PRACHI PRN Reason: Protocol Last Admin: 09/30/17 00:58 Dose: 250 mg Enoxaparin Sodium (Lovenox) 40 mg SC DAILY PRACHI PRN Reason: Protocol Last Admin: 09/29/17 09:11 Dose: 40 mg - Labs Labs: 09/30/17 06:21 09/30/17 06:21 PT 12.2 Seconds (9.8-13.1) 09/29/17 05:43 INR 1.1 (0.9-1.2) 09/29/17 05:43 APTT 27.8 Seconds (25.6-37.1) 09/29/17 05:43
[2017-09-30] MEDS: Enoxaparin 40 mg Syringe SC SCH (09:11)
[2017-09-30] MEDS: Ciprofloxacin 200mg/100ml D5W 100 ML IVPB SCH ×2 (11:40→21:25)
[2017-10-01 07:04] LABS: BLOOD UREA NITROGEN 25 mg/dl (7-17); CALCIUM 9.2 mg/dL (8.4-10.2); GFR AFRICAN-AMERICAN > 60; GFR NON-AFRICAN AMERICAN 54
[2017-10-01] MEDS: Ciprofloxacin 200mg/100ml D5W 100 ML IVPB SCH (09:42)
[2017-10-01] MEDS: Enoxaparin 40 mg Syringe SC SCH ×2 (09:43→09:49)
--- NOTE | 2017-10-01 10:50 | CP.PCM.PN ---
Subjective - Date & Time of Evaluation Date of Evaluation: 10/01/17 Time of Evaluation: 10:50 - Subjective Subjective: Ms. Núñez was seen and examined at the bedside. She is alert, oriented in all spheres. She denies any headache, dizziness, lightheadedness, nausea, or vomiting. She claims of tenderness in her right temporal area where she had her bump from her recent fall. She is able to follow simple commands. There was no untoward events overnight. Objective - Vital Signs/Intake and Output Vital Signs (last 24 hours): Temp Pulse Resp BP Pulse Ox 97.2 F L 81 18 131/69 95 10/01/17 08:31 10/01/17 08:31 10/01/17 08:31 09/30/17 21:00 10/01/17 08:31 Intake and Output: 10/01/17 10/01/17 06:59 18:59 Intake Total 100 Balance 100 - Medications Medications: Current Medications Acetaminophen (Tylenol 325mg Tab) 650 mg PO Q6 PRN PRN Reason: Pain, moderate (4-7) Last Admin: 09/30/17 20:37 Dose: 650 mg Enoxaparin Sodium (Lovenox) 40 mg SC DAILY PRACHI PRN Reason: Protocol Last Admin: 10/01/17 09:49 Dose: Not Given Hydrochlorothiazide (Microzide) 12.5 mg PO DAILY PRACHI Last Admin: 10/01/17 09:43 Dose: 12.5 mg Ciprofloxacin (Cipro 200mg/100ml D5w) 100 mls @ 100 mls/hr IVPB Q12 PRACHI PRN Reason: Protocol Last Admin: 10/01/17 09:42 Dose: 100 mls/hr - Labs Labs: 09/30/17 06:21 10/01/17 05:55 PT 12.2 Seconds (9.8-13.1) 09/29/17 05:43 INR 1.1 (0.9-1.2) 09/29/17 05:43 APTT 27.8 Seconds (25.6-37.1) 09/29/17 05:43 - Constitutional Appears: No Acute Distress - Head Exam Head Exam: NORMAL INSPECTION - Neurological Exam Neurological Exam: Alert, Awake Neuro motor strength exam: Left Upper Extremity: 5, Right Upper Extremity: 5, Left Lower Extremity: 5, Right Lower Extremity: 5 Additional comments: She is alert, oriented in all spheres. She is able to follow simple commands. Assessment and Plan (1) Fall Assessment & Plan: Case discussed with Dr. orourke, continue all current medical regimen. Since the patient is back to her baseline, encourage pt to have a medical alert bracelet. neurology is signing off from this case, please reconsult if needed. Status: Acute
--- NOTE | 2017-10-01 11:26 | CP.PCM.DIS ---
Provider - Provider Date of Admission: 09/28/17 14:15 Attending physician: Feliz Rai MD Primary care physician: [facility] Consults: Cardiology - Dr. Sotelo Neurology- Dr. Willams Time Spent in preparation of Discharge (in minutes): 35 Diagnosis - Discharge Diagnosis (1) Rhabdomyolysis Status: Resolved Comment: Pt s/p fall at home; CPK on admission 1457. Pt hydrated with normal saline, monitored, CPK trended down appropriately. This am in normal range. (2) Urinary tract infection Status: Acute Comment: Found to have postive nitrates and trace leuk esterase in urine on admission. Treatment w/ ciprofloxacin initiated. (3) Atrial fibrillation Status: Resolved Comment: Pt came in with atrial fibrillation. Seen by passenger service agent Dr. Sotelo. A- fib was new onset, resolved with one dose diltiazem, and pt remained rate controlled and NSR for the rest of her stay. As per cardio, Afib likely due to dehydration with muscle injury secondary to fall; doesn't warrant any further intervention at this point. (4) Hydrocephalus Status: Chronic Comment: Seen on CT. Unchanged from last admission. Evaluated by neurology- recommend [facility]. (5) Elevated blood pressure reading Status: Acute (6) Hypertension Status: Acute Comment: Found to be hypertensive on several readings- HCTZ 12.5 mg daily started. Hospital Course - Lab Results Lab Results: Micro Results 09/29/17 15:20 Urine,Catheterized Urine Culture - Final Escherichia Coli Most Recent Lab Values WBC 7.6 K/uL (4.8-10.8) 09/30/17 06:21 RBC 3.66 Mil/uL (3.80-5.20) L 09/30/17 06:21 Hgb 10.1 g/dL (12.0-16.0) L 09/30/17 06:21 Hct 30.5 % (34.0-47.0) L 09/30/17 06:21 MCV 83.4 fl (81.0-99.0) 09/30/17 06:21 MCH 27.5 pg (27.0-31.0) 09/30/17 06:21 MCHC 33.0 g/dL (33.0-37.0) 09/30/17 06:21 RDW 15.3 % (11.5-14.5) H 09/30/17 06:21 Plt Count 374 K/uL (130-400) 09/30/17 06:21 MPV 7.7 fl (7.2-11.7) 09/29/17 05:43 Neut % (Auto) 67.0 % (50.0-75.0) 09/29/17 05:43 Lymph % (Auto) 19.8 % (20.0-40.0) L 09/29/17 05:43 [place] % (Auto) 8.5 % (0.0-10.0) 09/29/17 05:43 Eos % (Auto) 4.2 % (0.0-4.0) H 09/29/17 05:43 Baso % (Auto) 0.5 % (0.0-2.0) 09/29/17 05:43 Neut # (Auto) 5.8 K/uL (1.8-7.0) 09/29/17 05:43 Lymph # (Auto) 1.7 K/uL (1.0-4.3) 09/29/17 05:43 [place] # (Auto) 0.7 K/uL (0.0-0.8) 09/29/17 05:43 Eos # (Auto) 0.4 K/uL (0.0-0.7) 09/29/17 05:43 Baso # (Auto) 0.0 K/uL (0.0-0.2) 09/29/17 05:43 PT 12.2 Seconds (9.8-13.1) 09/29/17 05:43 INR 1.1 (0.9-1.2) 09/29/17 05:43 APTT 27.8 Seconds (25.6-37.1) 09/29/17 05:43 Sodium 140 mmol/l (132-148) 10/01/17 05:55 Potassium 4.4 MMOL/L (3.6-5.0) 10/01/17 05:55 Chloride 101 mmol/L (98-107) 10/01/17 05:55 Carbon Dioxide 29 mmol/L (22-30) 10/01/17 05:55 Anion Gap 14 (10-20) 10/01/17 05:55 BUN 25 mg/dl (7-17) H 10/01/17 05:55 Creatinine 1.0 mg/dl (0.7-1.2) 10/01/17 05:55 Est GFR ( Amer) > 60 10/01/17 05:55 Est GFR (Non-Af Amer) 54 10/01/17 05:55 Random Glucose 99 mg/dL (65-105) 10/01/17 05:55 Uric Acid 6.3 mg/Dl (2.2-7.5) 09/29/17 05:43 Calcium 9.2 mg/dL (8.4-10.2) 10/01/17 05:55 Phosphorus 3.0 mg/dl (2.5-4.5) 09/29/17 05:43 Total Bilirubin 0.2 mg/dl (0.2-1.3) 09/29/17 05:43 AST 40 U/L (14-36) H D 09/29/17 05:43 ALT 39 U/L (9-52) 09/29/17 05:43 Alkaline Phosphatase 70 U/L (38-126) 09/29/17 05:43 Total Creatine Kinase 100 U/L (30-135) 10/01/17 05:55 Troponin I 0.0640 ng/mL (0.00-0.120) 09/29/17 05:43 NT-Pro-B Natriuret Pep 1660 pg/ml (0-900) H 09/28/17 12:59 Total Protein 5.9 G/DL (6.3-8.2) L 09/29/17 05:43 Albumin 2.5 g/dL (3.5-5.0) L D 09/29/17 05:43 Globulin 3.4 gm/dL (2.2-3.9) 09/29/17 05:43 Albumin/Globulin Ratio 0.7 (1.0-2.1) L 09/29/17 05:43 Urine Color Yellow (YELLOW) 09/29/17 03:45 Urine Clarity Cloudy (Clear) 09/29/17 03:45 Urine pH 5.0 (5.0-8.0) 09/29/17 03:45 Ur Specific [place] 1.023 (1.003-1.030) 09/29/17 03:45 Urine Protein Negative mg/dL (NEGATIVE) 09/29/17 03:45 Urine Glucose (UA) Neg mg/dL (Normal) 09/29/17 03:45 Urine Ketones Trace mg/dL (NEGATIVE) 09/29/17 03:45 Urine Blood Small (NEGATIVE) 09/29/17 03:45 Urine Nitrate Positive (NEGATIVE) H 09/29/17 03:45 Urine Bilirubin Negative (NEGATIVE) 09/29/17 03:45 Urine Urobilinogen 0.2-1.0 mg/dL (0.2-1.0) 09/29/17 03:45 Ur Leukocyte Esterase Trace Zohra/uL (Negative) 09/29/17 03:45 Urine RBC (Auto) 1 /hpf (0-3) 09/29/17 03:45 Ur Squamous Epith Cells 4 /hpf (0-5) 09/29/17 03:45 Urine Bacteria Many (<OCC) H 09/29/17 03:45 Stool Occult Blood Negative (NEGATIVE) 09/29/17 00:30 Urine Opiates Screen Negative (NEGATIVE) 09/28/17 15:55 Urine Methadone Screen Negative (NEGATIVE) 09/28/17 15:55 Ur Barbiturates Screen Negative (NEGATIVE) 09/28/17 15:55 Ur Phencyclidine Scrn Negative (NEGATIVE) 09/28/17 15:55 Ur Amphetamines Screen Negative (NEGATIVE) 09/28/17 15:55 U Benzodiazepines Scrn Negative (NEGATIVE) 09/28/17 15:55 U Oth Cocaine Metabols Negative (NEGATIVE) 09/28/17 15:55 U Cannabinoids Screen Negative (NEGATIVE) 09/28/17 15:55 - Hospital Course Hospital Course: Pt is a 77 yo F with PMH left nephrectomy due to renal ca, hydrocephalus, multiple falls admitted after fall at home and spending 2-3 days on floor; CPK on admission 1457. Pt was hydrated with normal saline, monitored, CPK trended down appropriately. This am in normal range. She also had atrial fibrillation on presentation which resolved in ED with 1 dose diltiazem, remained rate controlled and NSR for the rest of her stay. Seen by passenger service agent Dr. Sotelo: A- fib was new onset, likely due to dehydration with muscle injury secondary to fall; doesn't warrant any further intervention at this point. Pt was noted to have hydrocephalus on CT of head; unchanged from past examination. Evaluated by neurology- recommend [facility]. Found to be hypertensive on several readings- HCTZ 12.5 mg daily started. She was found to have UTI on admission- treatment w/ ciprofloxacin initiated; last dose given 9 am morning of discharge , to be continued at subacute rehab for two more doses 12 hrs apart. Discharge Exam - Head Exam Head Exam: NORMAL INSPECTION - Eye Exam Eye Exam: Normal appearance - ENT Exam ENT Exam: Mucous Membranes Moist - Respiratory Exam Respiratory Exam: Clear to PA & Lateral, NORMAL BREATHING PATTERN - Cardiovascular Exam Cardiovascular Exam: REGULAR RHYTHM, +S1, +S2 - GI/Abdominal Exam GI & Abdominal Exam: Normal Bowel Sounds, Soft - Extremities Exam Extremities exam: normal capillary refill, normal inspection - Back Exam Back exam: NORMAL INSPECTION - Neurological Exam Neurological exam: Alert - Psychiatric Exam Psychiatric exam: Normal Affect, Normal Mood - Skin Skin Exam: Dry, Intact, Warm Discharge Plan - Discharge Medications Prescriptions: Ciprofloxacin IV [Cipro] 200 mg IVPB Q12 1 Days - Follow Up Plan Condition: STABLE Disposition: REHAB FACILITY/REHAB UNIT Patient education suggested?: Yes Instructions: Urinary Tract Infection, Adult (DC) Additional Instructions: Please follow up at [facility] at [address] [place] [address] after finishing completing rehab. Instructions provided in referral. Referrals: [facility] [Outside] (Please make appointment at [facility] after discharge from rehab facility; make appt with Dr. Mackenzie or other available doctor. Call ; press 5 for [facility] and 2 for [facility]. )
[2017-10-01 16:04] VITALS: BP 160/67; PULSE 91; RESP 20; TEMP 99.1; O2SAT 96
== END 2017-10-01 16:30 | DRG 565 ==
LOC: H.ER 12:08 → H.ERHOLD 14:15 → H.TEL 17:26 → H.MEDSURG1 09-30 23:20
PROVIDERS: ADMIT Family Medicine; ATTEND Family Medicine
DX: T79.6XXA Traumatic ischemia of muscle, initial encounter (principal); G91.0 Communicating hydrocephalus; E86.0 Dehydration; I35.1 Nonrheumatic aortic (valve) insufficiency; I48.91 Unspecified atrial fibrillation; M17.10 Unilateral primary osteoarthritis, unspecified knee; M25.40 Effusion, unspecified joint; I12.9 Hypertensive chronic kidney disease with stage 1 through stage 4 chronic kidney disease, or unspecified chronic kidney disease; N39.0 Urinary tract infection, site not specified; N18.9 Chronic kidney disease, unspecified; W01.0XXA Fall on same level from slipping, tripping and stumbling without subsequent striking against object, initial encounter; Z79.899 Other long term (current) drug therapy; Z85.528 Personal history of other malignant neoplasm of kidney; Z87.891 Personal history of nicotine dependence; Z90.5 Acquired absence of kidney; R29.6 Repeated falls; Y92.009 Unspecified place in unspecified non-institutional (private) residence as the place of occurrence of the external cause; R00.2 Palpitations

== ENCOUNTER 2018-03-06 11:05 | Inpatient (IN) | payer MEDICARE ==
[2018-03-06 11:10] VITALS: BMI 18.3
--- NOTE | 2018-03-06 12:17 | CT ---
Date of service: 03/06/2018 PROCEDURE: CT HEAD WITHOUT CONTRAST. HISTORY: Head injury COMPARISON: 09/28/2017. TECHNIQUE: Axial computed tomography images were obtained through the head/brain without intravenous contrast. Radiation dose: Total exam DLP = 860.68 mGy-cm. This CT exam was performed using one or more of the following dose reduction techniques: Automated exposure control, adjustment of the mA and/or kV according to patient size, and/or use of iterative reconstruction technique. FINDINGS: HEMORRHAGE: No intracranial hemorrhage. BRAIN: There are mild chronic microangiopathic changes. There is no mass, mass effect or abnormal extra-axial fluid collection. There is no territorial infarction. The midline sagittal structures are normal. VENTRICLES: There is persistent severe dilatation of the ventricles. Ventricular dilatation is out of proportion to the sulcal prominence for age-related volume loss. CALVARIUM: There is no calvarial fracture or extracranial soft tissue swelling. PARANASAL SINUSES: Predominantly clear. MASTOID AIR CELLS: Predominantly clear. OTHER FINDINGS: None. IMPRESSION: No acute intracranial abnormality. No change in severe ventricular dilatation out of proportion to the sulcal prominence concerning for normal pressure hydrocephalus. Clinical follow-up is advised.
--- NOTE | 2018-03-06 12:23 | ED PDOC ---
HPI: Trauma/Fall - HPI Time Seen by Provider: 03/06/18 11:22 Chief Complaint (Nursing): Trauma Chief Complaint (Provider): Trauma History Per: Patient History/Exam Limitations: no limitations Onset/Duration Of Symptoms: Days Additional Complaint(s): 78 y/o female with a PMHx of Atrial Fibrillation brought to the ED via EMS for fall, onset 1.5 days ago. Patient reports she fell approximately 2 days ago and "passed out". Patient states she was lying on her apartment floor since and was unable to move. Patient reports she was finally able to call the ambulance this morning thus prompting today's visit. Patient denies pain anywhere but is now complaining of being thirsty and hungry because she was unable to move off the floor. Patient states she has fell and been admitted here in the past. Denies head injury, chest pain, abdominal pain, vomiting and fevers. PMD: [facility] - Fall Fall:Prior To Injury: Passed Out Past Medical History Reviewed: Historical Data, Nursing Documentation, Vital Signs Vital Signs: Last Vital Signs Temp 98.9 F 03/06/18 11:38 Pulse 94 H 03/06/18 11:38 Resp 18 03/06/18 11:38 BP 122/65 03/06/18 11:38 Pulse Ox 98 03/06/18 11:38 - Medical History PMH: Atrial Fibrillation, Chronic Kidney Disease Denies: HIV - Surgical History Surgical History: No Surg Hx - Family History Family History: States: No Known Family Hx - Home Medications Home Medications: Ambulatory Orders Medication Instructions Recorded Cu/Se/Vit A/Vit C/Vit E/Zinc 1 tab PO DAILY 09/28/17 [Ocuvite] Ciprofloxacin IV [Cipro] 200 mg IVPB Q12 1 Days 10/01/17 hydroCHLOROthiazide [Microzide] 12.5 mg PO DAILY cap 10/01/17 - Allergies Allergies/Adverse Reactions: Allergies Allergy/AdvReac Type Severity Reaction Status Date / Time No Known Allergies Allergy Verified 09/28/17 12:18 Review of Systems ROS Statement: Except As Marked, All Systems Reviewed And Found Negative Constitutional: Negative for: Fever Cardiovascular: Negative for: Chest Pain Gastrointestinal: Negative for: Vomiting, Abdominal Pain Neurological: Negative for: Other (Head Injury) Physical Exam - Reviewed Nursing Documentation Reviewed: Yes Vital Signs Reviewed: Yes - Physical Exam Appears: Positive for: No Acute Distress (comfortable but does appear chronically ill) Head Exam: Positive for: ATRAUMATIC Skin: Positive for: Normal Color, Warm, Dry Eye Exam: Positive for: Normal appearance, EOMI, PERRL Neck: Positive for: Normal, Painless ROM Cardiovascular/Chest: Positive for: Regular Rate, Rhythm. Negative for: Murmur Respiratory: Positive for: Normal Breath Sounds. Negative for: Respiratory Distress Gastrointestinal/Abdominal: Positive for: Normal Exam, Soft. Negative for: Tenderness Back: Positive for: Normal Inspection, Other (Localized erythema to the sacral region). Negative for: L CVA Tenderness, R CVA Tenderness, Vertebral Tenderness Extremity: Positive for: Normal ROM. Negative for: Deformity Neurologic/Psych: Positive for: Alert, vessel operator II-XII (intact), Oriented (x3). Negative for: Motor/Sensory Deficits - Laboratory Results Result Diagrams: 03/06/18 12:26 03/06/18 12:26 - ECG ECG Rhythm: Positive for: Normal QRS, Sinus Rhythm. Negative for: ST/T Changes Rate: 83 O2 Sat by Pulse Oximetry: 98 (RA) Pulse Ox Interpretation: Normal Medical Decision Making Medical Decision Making: Time: 1143 Impression: Fall, Syncope Differentials include but not limited to multiple plant injuries (possible hip, extremity and head included), rhabdomyolysis, UTI, dehydration and cardiac arrythmyia Plan: -- Type and Screen -- CT Head w/o Contrast -- EKG -- CMP -- CPK -- Troponin I -- CBC with differentials -- PTT -- Prothrombin time -- CXR One View -- Glucose, POC -- Sodium Chloride IV 100 mls/hr -- Pelvis One View -- Urinalysis Time: [address] RESULTS FINDINGS: HEMORRHAGE: No intracranial hemorrhage. BRAIN: There are mild chronic microangiopathic changes. There is no mass, mass effect or abnormal extra-axial fluid collection. There is no territorial infarction. The midline sagittal structures are normal. VENTRICLES: There is persistent severe dilatation of the ventricles. Ventricular dilatation is out of proportion to the sulcal prominence for age-related volume loss. CALVARIUM: There is no calvarial fracture or extracranial soft tissue swelling. PARANASAL SINUSES: Predominantly clear. MASTOID AIR CELLS: Predominantly clear. OTHER FINDINGS: None. IMPRESSION: No acute intracranial abnormality. No change in severe ventricular dilatation out of proportion to the sulcal prominence concerning for normal pressure hydrocephalus. Clinical follow-up is advised.' Time: 1229 CXR RESULTS FINDINGS: LUNGS: The lungs are well inflated and clear. PLEURA: No pneumothorax or pleural fluid seen. CARDIOVASCULAR: Normal. OSSEOUS STRUCTURES: No significant abnormalities. VISUALIZED UPPER ABDOMEN: Normal. OTHER FINDINGS: None. IMPRESSION: No acute findings. Time: 1409 PELVIS XR RESULTS FINDINGS: BONES: The pelvic ring is intact. There is diffuse bone demineralization. Bone alignment is normal. There is no acute displaced fracture or bone destruction. JOINTS: The hip joint spaces are preserved. Sacroiliac Joints: Unremarkable. Pubic Symphysis: Unremarkable. OTHER FINDINGS: None. IMPRESSION: No acute displaced fracture or dislocation. Please note occult fractures cannot be excluded on plain radiographs. If there is a persistent clinical concern, an MRI of the hip may be performed for further evaluation. Scribe Attestation: Documented by Kimber Hernandez acting as a scribe for Dr. Glenys Butcher MD. Provider Scribe Attestation: All medical record entries made by the Scribe were at my direction and personally dictated by me. I have reviewed the chart and agree that the record accurately reflects my personal performance of the history, physical exam, medical decision making, and the department course for this patient. I have also personally directed, reviewed, and agree with the discharge instructions and disposition. Disposition - Clinical Impression Clinical Impression: Hydrocephalus, Syncope, Dehydration - Patient ED Disposition Is Patient to be Admitted: Yes Discussed With : Catarina Luna Doctor Will See Patient In The: ED Counseled Patient/Family Regarding: Studies Performed, Diagnosis - Disposition Disposition Time: 14:00 Condition: FAIR - Pt Status Changed To: Hospital Disposition Of: Inpatient - Admit Certification Admit to Inpatient:: After my assessment, the patient will require hospitalization for at least two midnights. This is because of the severity of symptoms shown, intensity of services needed, and/or the medical risk in this patient being treated as an outpatient. - POA Present On Arrival: Falls Or Trauma, Pressure Ulcer (sacral stage 1)
--- NOTE | 2018-03-06 12:32 | RAD ---
Date of service: 03/06/2018 PROCEDURE: CHEST RADIOGRAPH, 1 VIEW HISTORY: fall COMPARISON: 09/28/2017. FINDINGS: LUNGS: The lungs are well inflated and clear. PLEURA: No pneumothorax or pleural fluid seen. CARDIOVASCULAR: Normal. OSSEOUS STRUCTURES: No significant abnormalities. VISUALIZED UPPER ABDOMEN: Normal. OTHER FINDINGS: None. IMPRESSION: No acute findings.
[2018-03-06] MEDS: Sodium Chloride 0.9% 1,000 ML IV SCH ×2 (12:49→22:28)
[2018-03-06 12:59] LABS: BASO # 0.1 K/uL (0.0-0.2); BASO % 0.9 % (0.0-2.0); EOS % 0.5 % (0.0-4.0); HEMOGLOBIN 13.7 g/dL (12.0-16.0); LYMPH # 1.2 K/uL (1.0-4.3); LYMPH % 13.4 % (20.0-40.0); MEAN CELL VOLUME 83.1 fl (81.0-99.0); MEAN CORPUSCULAR HEMOGLOBIN 28.3 pg (27.0-31.0); MEAN CORPUSCULAR HGB CONC 34.1 g/dL (33.0-37.0); MEAN PLATELET VOLUME 7.9 fl (7.2-11.7); MONO # 0.5 K/uL (0.0-0.8); MONO % 5.1 % (0.0-10.0); NEUT # 7.1 K/uL (1.8-7.0); NEUT % 80.1 % (50.0-75.0); RBC 4.83 Mil/uL (3.80-5.20); RED CELL DISTRIBUTION WIDTH 16.4 % (11.5-14.5); WHITE BLOOD COUNT 8.9 K/uL (4.8-10.8)
[2018-03-06 13:03] LABS: INR 1.1; PROTHROMBIN TIME 11.9 Seconds (9.8-13.1)
[2018-03-06 13:06] LABS: PARTIAL THROMBOPLASTIN TIME 31.4 Seconds (25.6-37.1)
[2018-03-06 13:13] LABS: ALB/GLOB RATIO 1.1 (1.0-2.1); ALBUMIN 3.8 g/dL (3.5-5.0); ALT/SGPT 19 U/L (9-52); AST/SGOT 33 U/L (14-36); BLOOD UREA NITROGEN 12 mg/dl (7-17); CALCIUM 9.5 mg/dL (8.4-10.2); GFR NON-AFRICAN AMERICAN > 60
[2018-03-06] MEDS ORDERED: Potassium Chloride 20 mEq ER Tab PO ONE ×4 (13:17→17:16)
--- NOTE | 2018-03-06 14:10 | RAD ---
Date of service: 03/06/2018 PROCEDURE: Radiographs of the pelvis. HISTORY: fall COMPARISON: None. FINDINGS: BONES: The pelvic ring is intact. There is diffuse bone demineralization. Bone alignment is normal. There is no acute displaced fracture or bone destruction. JOINTS: The hip joint spaces are preserved. Sacroiliac Joints: Unremarkable. Pubic Symphysis: Unremarkable. OTHER FINDINGS: None. IMPRESSION: No acute displaced fracture or dislocation. Please note occult fractures cannot be excluded on plain radiographs. If there is a persistent clinical concern, an MRI of the hip may be performed for further evaluation.
[2018-03-06 14:18] LABS: SQUAMOUS EPITHIAL 1 /hpf (0-5); URINE BILIRUBIN NEGATIVE (NEGATIVE); URINE BLOOD SMALL (NEGATIVE); URINE CLARITY SLIGHTY-CLOUDY (Clear); URINE COLOR YELLOW (YELLOW); URINE GLUCOSE (UA) NEG (Normal); URINE LEUKOCYTE ESTERASE NEG Leu/uL (Negative); URINE PROTEIN 100 mg/dL (NEGATIVE); URINE UROBILINOGEN 0.2-1.0 mg/dL (0.2-1.0)
--- NOTE | 2018-03-06 17:06 | CP.PCM.HP ---
History of Present Illness - History of Present Illness History of Present Illness: CC: I fell HPI: 78 YO female with hx of L nephrectomy due to renal CA presents to [facility] ED after experiencing a fall. Per pt, she fell about 2 day ago, and was unable to move and call the ambulance. Today, pt finally got herself up and called the ambulance. Pt states that she feels fine now but remembers feeling weak before falling and passing out. get up. Pt denies any stool or urinary incontinence ( in the past), no tongue biting. Only endorsing R knee pain from bruising after fall. Per at, she is independent, lives alone. Walks at home without any assistance but when she goes outside walks using a walker or cane. Pt was hungry when she was initially brought to the ED, but feeling better now. Endorsing feeling "wobbly" when walking. Denies chest pain, dyspnea, palpatations, headache, abdominal pain, n/v/d/c, dysuria, chills, fevers. PMD: none; was seen at [facility] clinic one time after last discharge. States she does not have a PMD, does not see any doctors. PMHx: renal carcinoma? hydrocephalus (from past admission) SurgHx: left nephrectomy PObHx hx: LMP at age 45, G0 FHx: denies Social hx: Former smoker (2ppd x 50 yrs, quit in 2004). Denies alcohol/drug use. Lives alone in [place], no family nearby, family lives in [facility]. Has no one to contact or notify Allergies: none Medications: vitamin D per chart Next of kin/person to notify: none per pt today, but per chart review a laine Aguilar in [facility] [phone] Code: DNR/DNI ER Course: Vitals: T98.9, HR 94, BP 122/65, RR 18, O2 98RA Blood work: WBC 8.9<13.7/40.2<295 Pt/INR/PTT 11.9/1.1/31.4 142/3.0, 109/25, 12/0.7, 120 Trops x 1 neg UA neg Imaging: CT head sig for severe ventricular dilatation, concerning for NPH ( hydrocephalus noted in previous CT head) XR of hip neg for acute fractures CXR neg EKG no acute ST changes; NSR with rate of 83 Meds: IV NS, KCl 20meq Present on Admission - Present on Admission Any Indicators Present on Admission: No Review of Systems - Constitutional Constitutional: absent: Chills, Headache - Cardiovascular Cardiovascular: absent: Chest Pain, Dyspnea - Respiratory Respiratory: absent: Cough, Dyspnea - Gastrointestinal Gastrointestinal: absent: Abdominal Pain, Constipation, Diarrhea - Genitourinary Genitourinary: absent: Difficulty Urinating, Hematuria, Urinary Incontinence, Urinary Frequency - Neurological Neurological: Abnormal Gait. absent: Confusion, Dizziness, Numbness Past Patient History - Past Medical History & Family History Past Medical History?: Yes - Past Social History Smoking Status: Former Smoker Alcohol: None Drugs: Denies Home Situation {Lives}: Alone - CARDIAC Hx Atrial Fibrillation: Yes - PULMONARY Hx Respiratory Disorders: No - NEUROLOGICAL Hx Neurological Disorder: Yes Other/Comment: hydrocephalus - HEENT Hx HEENT Problems: No - RENAL Hx Chronic Kidney Disease: Yes - ENDOCRINE/METABOLIC Hx Endocrine Disorders: No - HEMATOLOGICAL/ONCOLOGICAL Hx Human Immunodeficiency Virus (HIV): No - INTEGUMENTARY Hx Dermatological Problems: No - MUSCULOSKELETAL/RHEUMATOLOGICAL Hx Musculoskeletal Disorders: Yes Hx Falls: No Hx Unsteady Gait: Yes (uses cane) - GASTROINTESTINAL Hx Gastrointestinal Disorders: No - GENITOURINARY/GYNECOLOGICAL Hx Genitourinary Disorders: No - PSYCHIATRIC Hx Psychophysiologic Disorder: No Hx Substance Use: No - SURGICAL HISTORY Hx Surgeries: Yes (L nephrectomy) - ANESTHESIA Hx Anesthesia: Yes Hx Anesthesia Reactions: No Hx Malignant Hyperthermia: No Meds Allergies/Adverse Reactions: Allergies Allergy/AdvReac Type Severity Reaction Status Date / Time No Known Allergies Allergy Verified 09/28/17 12:18 Physical Exam - Constitutional Appears: No Acute Distress - Head Exam Head Exam: ATRAUMATIC - Eye Exam Eye Exam: Normal appearance - Respiratory Exam Respiratory Exam: Clear to Auscultation Bilateral, NORMAL BREATHING PATTERN. absent: Wheezes - Cardiovascular Exam Cardiovascular Exam: REGULAR RHYTHM, +S1, +S2 - GI/Abdominal Exam GI & Abdominal Exam: Normal Bowel Sounds, Soft. absent: Distended, Guarding, Tenderness - Extremities Exam Extremities exam: Negative for: calf tenderness, pedal edema Additional comments: contusions in the R leg, skin integrity intact - Back Exam Back exam: NORMAL INSPECTION. absent: CVA tenderness (L), CVA tenderness (R) Additional comments: small area of redness noted in sacrum, non-blenching, non-tender - Neurological Exam Neurological exam: Alert, Oriented x3 (oriented to person, place, time, and president ) - Psychiatric Exam Psychiatric exam: Normal Mood Results - Vital Signs Recent Vital Signs: Last Vital Signs Temp 98.9 F 03/06/18 11:38 Pulse 78 03/06/18 15:30 Resp 19 03/06/18 15:30 BP 108/50 L 03/06/18 15:30 Pulse Ox 98 03/06/18 15:30 - Labs Result Diagrams: 03/06/18 12:26 03/06/18 12:26 Labs: Laboratory Results - last 24 hr 03/06/18 03/06/18 03/06/18 11:34 12:26 12:26 WBC 8.9 RBC 4.83 Hgb 13.7 D Hct 40.2 MCV 83.1 MCH 28.3 MCHC 34.1 RDW 16.4 H Plt Count 295 MPV 7.9 Neut % (Auto) 80.1 H Lymph % (Auto) 13.4 L [place] % (Auto) 5.1 Eos % (Auto) 0.5 Baso % (Auto) 0.9 Neut # (Auto) 7.1 H Lymph # (Auto) 1.2 [place] # (Auto) 0.5 Eos # (Auto) 0.0 Baso # (Auto) 0.1 PT INR APTT Sodium 142 Potassium 3.0 L Chloride 109 H Carbon Dioxide 25 Anion Gap 11 BUN 12 Creatinine 0.7 Est GFR ( Amer) > 60 Est GFR (Non-Af Amer) > 60 POC Glucose (mg/dL) 122 H Random Glucose 120 H Calcium 9.5 Total Bilirubin 0.8 AST 33 ALT 19 Alkaline Phosphatase 88 Total Creatine Kinase 123 Troponin I 0.0860 Total Protein 7.5 Albumin 3.8 Globulin 3.6 Albumin/Globulin Ratio 1.1 Urine Color Urine Clarity Urine pH Ur Specific [place] Urine Protein Urine Glucose (UA) Urine Ketones Urine Blood Urine Nitrate Urine Bilirubin Urine Urobilinogen Ur Leukocyte Esterase Urine RBC (Auto) Urine Microscopic WBC Ur Squamous Epith Cells Hyaline Casts Blood Type Blood Type Confirm Antibody Screen BBK History Checked 03/06/18 03/06/18 03/06/18 12:26 13:20 13:20 WBC RBC Hgb Hct MCV MCH MCHC RDW Plt Count MPV Neut % (Auto) Lymph % (Auto) [place] % (Auto) Eos % (Auto) Baso % (Auto) Neut # (Auto) Lymph # (Auto) [place] # (Auto) Eos # (Auto) Baso # (Auto) PT 11.9 INR 1.1 APTT 31.4 Sodium Potassium Chloride Carbon Dioxide Anion Gap BUN Creatinine Est GFR ( Amer) Est GFR (Non-Af Amer) POC Glucose (mg/dL) Random Glucose Calcium Total Bilirubin AST ALT Alkaline Phosphatase Total Creatine Kinase Troponin I Total Protein Albumin Globulin Albumin/Globulin Ratio Urine Color Urine Clarity Urine pH Ur Specific [place] Urine Protein Urine Glucose (UA) Urine Ketones Urine Blood Urine Nitrate Urine Bilirubin Urine Urobilinogen Ur Leukocyte Esterase Urine RBC (Auto) Urine Microscopic WBC Ur Squamous Epith Cells Hyaline Casts Blood Type A NEGATIVE Blood Type Confirm A NEGATIVE Antibody Screen Negative BBK History Checked No verified bt 03/06/18 13:56 WBC RBC Hgb Hct MCV MCH MCHC RDW Plt Count MPV Neut % (Auto) Lymph % (Auto) [place] % (Auto) Eos % (Auto) Baso % (Auto) Neut # (Auto) Lymph # (Auto) [place] # (Auto) Eos # (Auto) Baso # (Auto) PT INR APTT Sodium Potassium Chloride Carbon Dioxide Anion Gap BUN Creatinine Est GFR ( Amer) Est GFR (Non-Af Amer) POC Glucose (mg/dL) Random Glucose Calcium Total Bilirubin AST ALT Alkaline Phosphatase Total Creatine Kinase Troponin I Total Protein Albumin Globulin Albumin/Globulin Ratio Urine Color Yellow Urine Clarity Slighty-cloudy Urine pH 6.0 Ur Specific [place] 1.024 Urine Protein 100 Urine Glucose (UA) Neg Urine Ketones 20 Urine Blood Small Urine Nitrate Negative Urine Bilirubin Negative Urine Urobilinogen 0.2-1.0 Ur Leukocyte Esterase Neg Urine RBC (Auto) 4 H Urine Microscopic WBC 2 Ur Squamous Epith Cells 1 Hyaline Casts 3-5 H Blood Type Blood Type Confirm Antibody Screen BBK History Checked Assessment & Plan - Assessment and Plan (Free Text) Assessment: Assessment/Plan: 78 YO female with PMHx of L nephrectomy due to renal CA, and hx of multiple falls is admitted for syncope and fall. Syncope/Fall/ataxia -chronic, hx of multiple falls and unsteady gait -CT head sig for severe ventricular dilatation, concerning for NPH ( hydrocephalus noted in previous CT head) -XR of hip neg for acute fractures, CXR neg -EKG no acute ST changes; NSR with rate of 83 -Carotid u/s (01/29) R ICA <50% stenosis, Left ICA 50-69% stenosis -will consult Neuro; pending recs -B12, TSH pending -PT/OT eval Hypokalemia -K 3.0 -1x 20meq KCl in ER -will replace with additional 40meq KCl -follow up AM labs Sacral ulcer -Stage I, sacral pressure ulcer -consult wound care DVT -Lovenox 40sc
--- NOTE | 2018-03-06 22:41 | CARD ---
APPROVED REPORT Date of service: 03/06/2018 EKG Measurement Heart [id number] <Conclusion> Normal sinus rhythm Normal ECG
[2018-03-07 08:51] LABS: BLOOD UREA NITROGEN 18 mg/dl (7-17); CALCIUM 8.5 mg/dL (8.4-10.2); GFR NON-AFRICAN AMERICAN > 60
[2018-03-07] MEDS: Cholecalciferol 1,000 INTLU TAB PO SCH (08:54)
[2018-03-07] MEDS: Enoxaparin 40 mg Syringe SC SCH (08:55)
[2018-03-07] MEDS: Sodium Chloride 0.9% 1,000 ML IV SCH (08:56)
--- NOTE | 2018-03-07 10:31 | CP.PCM.PN ---
Subjective - Date & Time of Evaluation Date of Evaluation: 03/07/18 Time of Evaluation: 08:30 - Subjective Subjective: No acute overnight events. Pt seen and examined by bedside this AM. States that she is feeling well, good PO intake, continues to experience weakness when walking. Objective - Vital Signs/Intake and Output Vital Signs (last 24 hours): Temp Pulse Resp BP Pulse Ox 97.7 F 93 H 20 151/74 H 98 03/07/18 08:08 03/07/18 09:15 03/07/18 08:08 03/07/18 08:08 03/07/18 08:08 - Medications Medications: Current Medications Acetaminophen (Tylenol 325mg Tab) 650 mg PO Q6 PRN PRN Reason: Headache Cholecalciferol (Vitamin D) 1,000 intlu PO DAILY [facility] Last Admin: 03/07/18 08:54 Dose: 1,000 intlu Enoxaparin Sodium (Lovenox) 40 mg SC DAILY [facility] PRN Reason: Protocol Last Admin: 03/07/18 08:55 Dose: Not Given Sodium Chloride (Sodium Chloride 0.9%) 1,000 mls @ 100 mls/hr IV .Q10H PRACHI Stop: 03/07/18 11:40 Last Admin: 03/07/18 08:56 Dose: 100 mls/hr - Labs Labs: 03/06/18 12:26 03/07/18 05:25 PT 11.9 Seconds (9.8-13.1) 03/06/18 12:26 INR 1.1 03/06/18 12:26 APTT 31.4 Seconds (25.6-37.1) 03/06/18 12:26 - Constitutional Appears: No Acute Distress - Head Exam Head Exam: NORMAL INSPECTION - Eye Exam Eye Exam: Normal appearance - ENT Exam ENT Exam: Mucous Membranes Moist - Respiratory Exam Respiratory Exam: Clear to Ausculation Bilateral, NORMAL BREATHING PATTERN. absent: Wheezes - Cardiovascular Exam Cardiovascular Exam: REGULAR RHYTHM, +S1, +S2, Murmur (systolic murmur ) - GI/Abdominal Exam GI & Abdominal Exam: Soft, Normal Bowel Sounds. absent: Tenderness - Extremities Exam Extremities Exam: Full ROM, Normal Inspection. absent: Calf Tenderness, Pedal Edema Additional comments: power in low ext 5/5 b/l power 4/5 in the upper ext b/l Contusions noted in R leg - Back Exam Back Exam: NORMAL INSPECTION. absent: CVA tenderness (L), CVA tenderness (R) Additional comments: small area of redness noted in sacrum, non-blenching, non-tender - Neurological Exam Neurological Exam: Alert, Awake, Oriented x3 Assessment and Plan - Assessment and Plan (Free Text) Assessment: Assessment/Plan: 78 YO female with PMHx of L nephrectomy due to renal CA, and hx of multiple falls is admitted for syncope and fall. Syncope/Fall/ataxia -chronic, worsening -severe hydrocephalus, likely 2/2 NPH with deconditioning and poor nutrition -CT head 03/06: sig for severe ventricular dilatation, concerning for NPH ( hydrocephalus noted in previous CT head) -MRI head 03/07: age related changes, severe ventricular dilatation out of proportion to the sulcal prominence concerning for NPH. -EKG no acute ST changes; NSR with rate of 83 -Carotid u/s (01/29) R ICA <50% stenosis, Left ICA 50-69% stenosis -Neuro on consult; MRI brain; NPH, consult neurosurgery for [employer] shunt -B12, TSH normal -PT/OT on board Hypokalemia -improving, K 3.4 -no EKG changes -will replace prn -follow up AM labs Sacral ulcer -Stage I, sacral pressure ulcer -wound care on board DVT -Lovenox 40sc
[2018-03-07] MEDS ORDERED: Potassium Chloride 20 mEq ER Tab PO ONE (11:17)
--- NOTE | 2018-03-07 12:09 | MRI ---
Date of service: 03/07/2018 PROCEDURE: MRI BRAIN WITHOUT CONTRAST HISTORY: normal pressure hydrocephalus COMPARISON: Noncontrast head CT from 03/06/2018. TECHNIQUE: Multiplanar, multisequence MR images of the brain were obtained without intravenous contrast enhancement. FINDINGS: HEMORRHAGE: None DWI: No evidence of an acute or early subacute infarction. BRAIN PARENCHYMA: There are mild chronic microangiopathic changes. There is no mass, mass effect or abnormal extra-axial fluid collection. VENTRICLES: There is severe ventricular dilatation out of proportion to the sulcal prominence for age-related volume loss. There is CSF pulsation artifact in the 3rd and 4th ventricles on FLAIR sequence. CRANIUM: The skull base and calvarium are normal. . ORBITS: Grossly unremarkable. PARANASAL SINUSES/MASTOIDS: Mild mucosal thickening in the ethmoid air cells. The remaining visualized paranasal sinuses and mastoid air cells are clear. VASCULAR SYSTEM: There are normal signal voids in the larger intracranial arteries. OTHER FINDINGS: None. IMPRESSION: No acute intracranial abnormality. Mild chronic microangiopathic changes and mild age-related global parenchymal volume loss. Severe ventricular dilatation out of proportion to the sulcal prominence concerning for normal pressure hydrocephalus. Please note normal pressure hydrocephalus is a clinical diagnosis for which follow-up is advised.
--- NOTE | 2018-03-07 13:58 | CP.PCM.CON ---
History of Present Illness - History of Present Illness History of Present Illness: HPI: as per chart: " 78 YO female with hx of L nephrectomy due to renal CA presents to [facility] ED after experiencing a fall. Per pt, she fell about 2 day ago, and was unable to move and call the ambulance. Today, pt finally got herself up and called the ambulance. Pt states that she feels fine now but remembers feeling weak before falling and passing out. get up. Pt denies any stool or urinary incontinence (in the past), no tongue biting. Only endorsing R knee pain from bruising after fall. Per at, she is independent, lives alone. Walks at home without any assistance but when she goes outside walks using a walker or cane. Pt was hungry when she was initially brought to the ED, but feeling better now. Endorsing feeling "wobbly" when walking. Denies chest pain, dyspnea, palpatations, headache, abdominal pain, n/v/d/c, dysuria, chills, fevers." PMD: none; was seen at [facility] clinic one time after last discharge. States she does not have a PMD, does not see any doctors. PMHx: renal carcinoma? hydrocephalus (from past admission) SurgHx: left nephrectomy PObHx hx: LMP at age 45, G0 FHx: denies Social hx: Former smoker (2ppd x 50 yrs, quit in 2004). Denies alcohol/drug use. Lives alone in [place], no family nearby, family lives in [facility]. Has no one to contact or notify Allergies: none Medications: vitamin D per chart On exam: PERRL. CN 2-12 normal. EOMI. mild nystagmus on upward gaze MMS: 30/30 motor, strength normal. gait: ataxic. Can only pull to stand and can only walk with cane. +[place]om[place]. no dysmetria. Past Patient History - Past Medical History & Family History Past Medical History?: Yes - Past Social History Smoking Status: Former Smoker - CARDIAC Hx Cardiac Disorders: Yes - PULMONARY Hx Respiratory Disorders: No - NEUROLOGICAL Hx Neurological Disorder: Yes - HEENT Hx HEENT Problems: No - RENAL Hx Chronic Kidney Disease: Yes - ENDOCRINE/METABOLIC Hx Endocrine Disorders: No - HEMATOLOGICAL/ONCOLOGICAL Hx AIDS: No Hx Human Immunodeficiency Virus (HIV): No - INTEGUMENTARY Hx Dermatological Problems: No - MUSCULOSKELETAL/RHEUMATOLOGICAL Hx Musculoskeletal Disorders: Yes - GASTROINTESTINAL Hx Gastrointestinal Disorders: No - GENITOURINARY/GYNECOLOGICAL Hx Genitourinary Disorders: No - PSYCHIATRIC Hx Psychophysiologic Disorder: No - SURGICAL HISTORY Hx Surgeries: Yes (L nephrectomy) Other/Comment: Left nephrectromy - ANESTHESIA Hx Anesthesia: Yes Hx Anesthesia Reactions: No Hx Malignant Hyperthermia: No Meds Allergies/Adverse Reactions: Allergies Allergy/AdvReac Type Severity Reaction Status Date / Time No Known Allergies Allergy Verified 09/28/17 12:18 - Medications Medications: Current Medications Acetaminophen (Tylenol 325mg Tab) 650 mg PO Q6 PRN PRN Reason: Headache Cholecalciferol (Vitamin D) 1,000 intlu PO DAILY [facility] Last Admin: 03/07/18 08:54 Dose: 1,000 intlu Enoxaparin Sodium (Lovenox) 40 mg SC DAILY PRACHI PRN Reason: Protocol Last Admin: 03/07/18 08:55 Dose: Not Given Results - Vital Signs Recent Vital Signs: Last Vital Signs Temp 97.7 F 03/07/18 12:57 Pulse 80 03/07/18 12:57 Resp 20 03/07/18 12:57 BP 134/73 03/07/18 12:57 Pulse Ox 97 03/07/18 12:57 - Labs Result Diagrams: 03/06/18 12:26 03/07/18 05:25 Labs: Laboratory Results - last 24 hr 03/06/18 03/06/18 03/06/18 13:20 13:20 13:56 Sodium Potassium Chloride Carbon Dioxide Anion Gap BUN Creatinine Est GFR ( Amer) Est GFR (Non-Af Amer) Random Glucose Calcium Total Creatine Kinase Vitamin B12 TSH 3rd Generation Urine Color Yellow Urine Clarity Slighty-cloudy Urine pH 6.0 Ur Specific [place] 1.024 Urine Protein 100 Urine Glucose (UA) Neg Urine Ketones 20 Urine Blood Small Urine Nitrate Negative Urine Bilirubin Negative Urine Urobilinogen 0.2-1.0 Ur Leukocyte Esterase Neg Urine RBC (Auto) 4 H Urine Microscopic WBC 2 Ur Squamous Epith Cells 1 Hyaline Casts 3-5 H Blood Type A NEGATIVE Blood Type Confirm A NEGATIVE Antibody Screen Negative 03/07/18 05:25 Sodium 144 Potassium 3.4 L Chloride 112 H Carbon Dioxide 27 Anion Gap 8 L BUN 18 H Creatinine 0.8 Est GFR ( Amer) > 60 Est GFR (Non-Af Amer) > 60 Random Glucose 91 Calcium 8.5 Total Creatine Kinase 65 Vitamin B12 663 TSH 3rd Generation 0.77 Urine Color Urine Clarity Urine pH Ur Specific [place] Urine Protein Urine Glucose (UA) Urine Ketones Urine Blood Urine Nitrate Urine Bilirubin Urine Urobilinogen Ur Leukocyte Esterase Urine RBC (Auto) Urine Microscopic WBC Ur Squamous Epith Cells Hyaline Casts Blood Type Blood Type Confirm Antibody Screen - Imaging and Cardiology CT scan - head Status: Image reviewed by me, Report reviewed by me (ct head: Hydrocephalus, profound. ) Assessment & Plan - Assessment and Plan (Free Text) Assessment: 78 yr old woman with severe hydrocephalus who will need shunt placement, and physical therapy. Appreciate neurosurgical consult in advance. Plan: 1. MRI Brain with contrast 2. Neurosurgical consult. 3. gait training. Fall risk. Thank you Dr. orourke
[2018-03-08 05:39] LABS: BLOOD UREA NITROGEN 19 mg/dl (7-17); CALCIUM 8.8 mg/dL (8.4-10.2); GFR NON-AFRICAN AMERICAN > 60
--- NOTE | 2018-03-08 08:28 | CP.PCM.PN ---
Subjective - Date & Time of Evaluation Date of Evaluation: 03/08/18 Time of Evaluation: 08:25 - Subjective Subjective: Ms. Núñez was seen and examined at the bedside. She is alert, oriented, denies any headache, dizziness, lightheadedness,blurred vision, diplopia, nausea , or vomiting. She is able to move all extremities spontaneously, but with unsteadiness when ambulating. She further claims of consuming excellent PO intake.MRI of the brain without contrast showed No acute intracranial abnormality. Mild chronic microangiopathic changes and mild age-related global parenchymal volume loss. Severe ventricular dilatation out of proportion to the sulcal prominence concerning for normal pressure hydrocephalus. She remains on contact isolation for bed bug.There was no untoward events overnight. Objective - Vital Signs/Intake and Output Vital Signs (last 24 hours): Temp Pulse Resp BP Pulse Ox 97.5 F L 71 18 157/71 H 96 03/08/18 08:00 03/08/18 08:00 03/08/18 08:00 03/08/18 08:00 03/08/18 08:00 - Medications Medications: Current Medications Acetaminophen (Tylenol 325mg Tab) 650 mg PO Q6 PRN PRN Reason: Headache Cholecalciferol (Vitamin D) 1,000 intlu PO DAILY [facility] Last Admin: 03/07/18 08:54 Dose: 1,000 intlu Enoxaparin Sodium (Lovenox) 40 mg SC DAILY [facility] PRN Reason: Protocol Last Admin: 03/07/18 08:55 Dose: Not Given - Labs Labs: 03/06/18 12:26 03/08/18 05:00 PT 11.9 Seconds (9.8-13.1) 03/06/18 12:26 INR 1.1 03/06/18 12:26 APTT 31.4 Seconds (25.6-37.1) 03/06/18 12:26 - Constitutional Appears: No Acute Distress - Head Exam Head Exam: NORMAL INSPECTION - Eye Exam Pupil Exam: PERRL - Neurological Exam Neurological Exam: Alert, Awake, Oriented x3 Neuro motor strength exam: Left Upper Extremity: 4, Right Upper Extremity: 4, Left Lower Extremity: 4, Right Lower Extremity: 4 Additional comments: alert, oriented, follows simple commands. Assessment and Plan (1) Hydrocephalus Assessment & Plan: Continue all current medical, physical, and occupational therapies. Recommend MRI with contrast, follow any orders from neurosurgery, treat any electrolyte abnormalities. Status: Chronic
[2018-03-08] MEDS: Cholecalciferol 1,000 INTLU TAB PO SCH (08:39)
[2018-03-08] MEDS: Enoxaparin 40 mg Syringe SC SCH (08:39)
--- NOTE | 2018-03-08 09:18 | CP.PCM.PN ---
Subjective - Date & Time of Evaluation Date of Evaluation: 03/08/18 Time of Evaluation: 08:30 - Subjective Subjective: No acute overnight events. Pt states that she spoke to the neurologist, and is feeling positively about potential procedure. Will like to consider. Denies chest pain, dyspnea, n/v and endorsing good PO intake. Objective - Vital Signs/Intake and Output Vital Signs (last 24 hours): Temp Pulse Resp BP Pulse Ox 97.5 F L 71 18 157/71 H 96 03/08/18 08:00 03/08/18 08:00 03/08/18 08:00 03/08/18 08:00 03/08/18 08:00 - Medications Medications: Current Medications Acetaminophen (Tylenol 325mg Tab) 650 mg PO Q6 PRN PRN Reason: Headache Cholecalciferol (Vitamin D) 1,000 intlu PO DAILY [facility] Last Admin: 03/08/18 08:39 Dose: 1,000 intlu Enoxaparin Sodium (Lovenox) 40 mg SC DAILY PRACHI PRN Reason: Protocol Last Admin: 03/08/18 08:39 Dose: Not Given - Labs Labs: 03/06/18 12:26 03/08/18 05:00 PT 11.9 Seconds (9.8-13.1) 03/06/18 12:26 INR 1.1 03/06/18 12:26 APTT 31.4 Seconds (25.6-37.1) 03/06/18 12:26 - Constitutional Appears: No Acute Distress - Head Exam Head Exam: NORMAL INSPECTION - Eye Exam Eye Exam: Normal appearance - ENT Exam ENT Exam: Mucous Membranes Moist - Respiratory Exam Respiratory Exam: Clear to Ausculation Bilateral, NORMAL BREATHING PATTERN. absent: Wheezes - Cardiovascular Exam Cardiovascular Exam: REGULAR RHYTHM, +S1, +S2, Murmur (systolic murmur ) - GI/Abdominal Exam GI & Abdominal Exam: Soft, Normal Bowel Sounds. absent: Tenderness - Extremities Exam Extremities Exam: Normal Inspection. absent: Calf Tenderness, Pedal Edema - Neurological Exam Neurological Exam: Alert, Awake - Psychiatric Exam Psychiatric exam: Normal Mood Assessment and Plan - Assessment and Plan (Free Text) Assessment: Assessment/Plan: 78 YO female with PMHx of L nephrectomy due to renal CA, and hx of multiple falls is admitted for syncope and fall. 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 Severe hydrocephalus -chronic, worsening -Syncope/Fall/ataxia, likely 2/2 NPH with deconditioning and poor nutrition -CT head 03/06: sig for severe ventricular dilatation, concerning for NPH ( hydrocephalus noted in previous CT head) -MRI head 03/07: age related changes, severe ventricular dilatation out of proportion to the sulcal prominence concerning for NPH. -EKG no acute ST changes; NSR with rate of 83 -Carotid u/s (01/29) R ICA <50% stenosis, Left ICA 50-69% stenosis -Neuro on consult; MRI brain w/ contrast; consult neurosurgery for [employer] shunt -Neurosurgery, case discussed with Dr. Chung; Planned for [employer] shunt Sunday, NPO after mid -PT/OT on board Hypokalemia -resolved -no EKG changes -will replace prn Sacral ulcer -Stage I, sacral pressure ulcer -wound care on board DVT -Lovenox 40sc
[2018-03-09] MEDS ORDERED: Gadodiamide 287 MG/ML VIAL (15ML) IV ONE (08:54)
[2018-03-09] MEDS: Cholecalciferol 1,000 INTLU TAB PO SCH (09:25)
[2018-03-09] MEDS: Enoxaparin 40 mg Syringe SC SCH (09:27)
--- NOTE | 2018-03-09 10:14 | CP.PCM.PN ---
Subjective - Date & Time of Evaluation Date of Evaluation: 03/09/18 Time of Evaluation: 09:31 - Subjective Subjective: No acute overnight events. Pt seen and examined by bedside. Feels well, denies dyspnea, chest pain, good PO intake and remains without fever. Objective - Vital Signs/Intake and Output Vital Signs (last 24 hours): Temp Pulse Resp BP Pulse Ox 97.7 F 70 20 158/67 H 98 03/09/18 08:00 03/09/18 08:00 03/09/18 08:00 03/09/18 08:00 03/09/18 08:00 - Medications Medications: Current Medications Acetaminophen (Tylenol 325mg Tab) 650 mg PO Q6 PRN PRN Reason: Headache Cholecalciferol (Vitamin D) 1,000 intlu PO DAILY [facility] Last Admin: 03/09/18 09:25 Dose: 1,000 intlu Enoxaparin Sodium (Lovenox) 40 mg SC DAILY [facility] PRN Reason: Protocol Last Admin: 03/09/18 09:27 Dose: Not Given - Labs Labs: 03/06/18 12:26 03/08/18 05:00 PT 11.9 Seconds (9.8-13.1) 03/06/18 12:26 INR 1.1 03/06/18 12:26 APTT 31.4 Seconds (25.6-37.1) 03/06/18 12:26 - Constitutional Appears: No Acute Distress, Other (well groomed ) - Head Exam Head Exam: NORMAL INSPECTION - Respiratory Exam Respiratory Exam: Clear to Ausculation Bilateral, NORMAL BREATHING PATTERN. absent: Wheezes - Cardiovascular Exam Cardiovascular Exam: REGULAR RHYTHM, +S1, +S2 - GI/Abdominal Exam GI & Abdominal Exam: Soft, Normal Bowel Sounds. absent: Tenderness - Extremities Exam Extremities Exam: Normal Inspection. absent: Calf Tenderness, Pedal Edema - Back Exam Back Exam: NORMAL INSPECTION - Neurological Exam Neurological Exam: Alert, Awake - Psychiatric Exam Psychiatric exam: Normal Mood - Skin Skin Exam: Normal Color Assessment and Plan - Assessment and Plan (Free Text) Assessment: Assessment/Plan: 78 YO female with PMHx of L nephrectomy due to renal CA, and hx of multiple falls is admitted for syncope and fall. 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 Severe hydrocephalus -chronic, worsening -Syncope/Fall/ataxia, likely 2/2 NPH with deconditioning and poor nutrition -CT head 03/06: sig for severe ventricular dilatation, concerning for NPH ( hydrocephalus noted in previous CT head) -MRI head 03/07: age related changes, severe ventricular dilatation out of proportion to the sulcal prominence concerning for NPH. -Neuro on consult; MRI brain w/ contrast; consult neurosurgery for CHIEF SUSTAINABILITY OFFICER shunt -Neurosurgery, case discussed with Dr. Chung; Planned for CHIEF SUSTAINABILITY OFFICER shunt Sunday, NPO after mid -PT/OT on board Sacral ulcer -Stage I, sacral pressure ulcer -wound care on board DVT -Lovenox 40sc
--- NOTE | 2018-03-10 08:06 | CP.PCM.PN ---
Subjective - Date & Time of Evaluation Date of Evaluation: 03/10/18 Time of Evaluation: 08:06 - Subjective Subjective: Ms. Núñez was seen and examined at the bedside. She is alert, oriented, denies any headache, dizziness, lightheadedness,blurred vision, diplopia, nausea , or vomiting. She is able to move all extremities spontaneously, but with unsteadiness when ambulating. She further claims of consuming excellent PO intake. She claims of initially refusing the MRI with contrast last sunday but will go naresh. She further claims of agreeing for WASHER HAND shunt insertion schedule this sunday. She remains on contact isolation. There was no untoward events overnight. Objective - Vital Signs/Intake and Output Vital Signs (last 24 hours): Temp Pulse Resp BP Pulse Ox 98.2 F 81 20 122/69 99 03/10/18 05:18 03/10/18 05:18 03/10/18 05:18 03/10/18 05:18 03/10/18 05:18 - Medications Medications: Current Medications Acetaminophen (Tylenol 325mg Tab) 650 mg PO Q6 PRN PRN Reason: Headache Cholecalciferol (Vitamin D) 1,000 intlu PO DAILY [facility] Last Admin: 03/09/18 09:25 Dose: 1,000 intlu Enoxaparin Sodium (Lovenox) 40 mg SC DAILY [facility] PRN Reason: Protocol Last Admin: 03/09/18 09:27 Dose: Not Given - Labs Labs: 03/06/18 12:26 03/08/18 05:00 PT 11.9 Seconds (9.8-13.1) 03/06/18 12: INR 1.1 03/06/18 12:26 APTT 31.4 Seconds (25.6-37.1) 03/06/18 12:26 - Constitutional Appears: No Acute Distress - Head Exam Head Exam: NORMAL INSPECTION - Eye Exam Pupil Exam: PERRL - Neurological Exam Neurological Exam: Alert, Awake, Oriented x3 Neuro motor strength exam: Left Upper Extremity: 4, Right Upper Extremity: 4, Left Lower Extremity: 4, Right Lower Extremity: 4 Additional comments: neurological unchanged from previous examination. Assessment and Plan (1) Hydrocephalus Assessment & Plan: Continue all current medical, physical, and occupational therapies. Pending MRI with contrast. Recommend follow any orders from neurosurgery, treat any electrolyte abnormalities. Status: Chronic
[2018-03-10] MEDS: Cholecalciferol 1,000 INTLU TAB PO SCH (09:31)
[2018-03-10] MEDS: Enoxaparin 40 mg Syringe SC SCH (09:32)
--- NOTE | 2018-03-10 10:50 | CP.PCM.PN ---
Subjective - Date & Time of Evaluation Date of Evaluation: 03/10/18 Time of Evaluation: 08:30 - Subjective Subjective: No overnight events. PAtient sitting upright in chair, ate 95% of her breakfast. Feeling well. Has cane next to chair. Has been asking for assistance with getting out of bed/ chair. No new complaints offered. Scheduled for EVENT SERVICES MANAGER shunt on 03/13/18. MRI w/ contrast pending per neuro. Objective - Vital Signs/Intake and Output Vital Signs (last 24 hours): Temp Pulse Resp BP Pulse Ox 97.5 F L 72 20 151/62 H 100 03/10/18 08:34 03/10/18 08:34 03/10/18 08:34 03/10/18 08:34 03/10/18 08:34 - Medications Medications: Current Medications Acetaminophen (Tylenol 325mg Tab) 650 mg PO Q6 PRN PRN Reason: Headache Cholecalciferol (Vitamin D) 1,000 intlu PO DAILY [facility] Last Admin: 03/10/18 09:31 Dose: 1,000 intlu Enoxaparin Sodium (Lovenox) 40 mg SC DAILY [facility] PRN Reason: Protocol Last Admin: 03/10/18 09:32 Dose: Not Given - Labs Labs: 03/06/18 12:26 03/08/18 05:00 PT 11.9 Seconds (9.8-13.1) 03/06/18 12: INR 1.1 03/06/18 12:26 APTT 31.4 Seconds (25.6-37.1) 03/06/18 12:26 - Constitutional Appears: Well (groomed), No Acute Distress - Head Exam Head Exam: ATRAUMATIC, NORMAL INSPECTION, NORMOCEPHALIC - Eye Exam Eye Exam: Normal appearance - Respiratory Exam Respiratory Exam: Clear to Ausculation Bilateral, NORMAL BREATHING PATTERN - Cardiovascular Exam Cardiovascular Exam: REGULAR RHYTHM, +S1, +S2 - Extremities Exam Extremities Exam: Normal Inspection - Neurological Exam Neurological Exam: Alert, Awake, CN II-XII Intact, Oriented x3 - Psychiatric Exam Psychiatric exam: Normal Affect, Normal Mood Assessment and Plan - Assessment and Plan (Free Text) Assessment: 78 YO female with PMHx of L nephrectomy due to renal CA, and hx of multiple falls is admitted for syncope and fall. 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 Continue with present management. Scheduled for EVENT SERVICES MANAGER shunt 03/13 Severe hydrocephalus -chronic, worsening -Syncope/Fall/ataxia, likely 2/2 NPH with deconditioning and poor nutrition -CT head 03/06: sig for severe ventricular dilatation, concerning for NPH ( hydrocephalus noted in previous CT head) -MRI head 03/07: age related changes, severe ventricular dilatation out of proportion to the sulcal prominence concerning for NPH. -Neuro on consult; MRI brain w/ contrast; consult neurosurgery for EVENT SERVICES MANAGER shunt -Neurosurgery, case discussed with Dr. Chung; Planned for EVENT SERVICES MANAGER shunt Sunday, NPO after mid -PT/OT on board Sacral ulcer -Stage I, sacral pressure ulcer -wound care on board DVT -Lovenox 40sc
[2018-03-11 05:26] LABS: HEMOGLOBIN 11.2 g/dL (12.0-16.0); MEAN CELL VOLUME 85.3 fl (81.0-99.0); MEAN CORPUSCULAR HEMOGLOBIN 28.1 pg (27.0-31.0); RED CELL DISTRIBUTION WIDTH 16.7 % (11.5-14.5); WHITE BLOOD COUNT 8.3 K/uL (4.8-10.8)
--- NOTE | 2018-03-11 07:27 | CP.PCM.PN ---
Subjective - Date & Time of Evaluation Date of Evaluation: 03/11/18 Time of Evaluation: 07:25 - Subjective Subjective: No acute overnight events. Pt endorsing good appetite, working with physical therapy but gait instability persists. Remains afebrile, no concerns. Pending LEGAL OPERATIONS MANAGER shut on Sunday. Objective - Vital Signs/Intake and Output Vital Signs (last 24 hours): Temp Pulse Resp BP Pulse Ox 98.5 F 68 18 109/57 L 98 03/11/18 05:24 03/11/18 05:24 03/11/18 05:24 03/11/18 05:24 03/11/18 05:24 - Medications Medications: Current Medications Acetaminophen (Tylenol 325mg Tab) 650 mg PO Q6 PRN PRN Reason: Headache Cholecalciferol (Vitamin D) 1,000 intlu PO DAILY [facility] Last Admin: 03/10/18 09:31 Dose: 1,000 intlu Enoxaparin Sodium (Lovenox) 40 mg SC DAILY [facility] PRN Reason: Protocol Last Admin: 03/10/18 09:32 Dose: Not Given - Labs Labs: 03/11/18 04:20 03/08/18 05:00 PT 11.9 Seconds (9.8-13.1) 03/06/18 12:26 INR 1.1 03/06/18 12:26 APTT 31.4 Seconds (25.6-37.1) 03/06/18 12:26 - Constitutional Appears: No Acute Distress, Other (well kempt ) - Head Exam Head Exam: NORMAL INSPECTION - Eye Exam Eye Exam: Normal appearance - ENT Exam ENT Exam: Mucous Membranes Moist - Respiratory Exam Respiratory Exam: Clear to Ausculation Bilateral, NORMAL BREATHING PATTERN. absent: Wheezes - Cardiovascular Exam Cardiovascular Exam: REGULAR RHYTHM, +S1, +S2, Murmur (systolic ) - GI/Abdominal Exam GI & Abdominal Exam: Soft, Normal Bowel Sounds. absent: Tenderness - Extremities Exam Extremities Exam: Normal Inspection. absent: Calf Tenderness, Pedal Edema - Back Exam Back Exam: NORMAL INSPECTION. absent: CVA tenderness (L), CVA tenderness (R) - Neurological Exam Neurological Exam: Alert, Awake - Psychiatric Exam Psychiatric exam: Normal Mood Assessment and Plan - Assessment and Plan (Free Text) Assessment: Assessment/Plan: 78 YO female with PMHx of L nephrectomy due to renal CA, and hx of multiple falls is admitted for syncope and fall. 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 Pending LEGAL OPERATIONS MANAGER shunt with neurosurgery 03/13. Severe hydrocephalus -chronic, worsening -Syncope/Fall/ataxia, likely 2/2 NPH with deconditioning and poor nutrition -CT head 03/06: sig for severe ventricular dilatation, concerning for NPH ( hydrocephalus noted in previous CT head) -MRI head 03/07: age related changes, severe ventricular dilatation out of proportion to the sulcal prominence concerning for NPH. -Neuro on consult; MRI brain w/ contrast; consult neurosurgery for LEGAL OPERATIONS MANAGER shunt -Neurosurgery, case discussed with Dr. Chung; Planned for LEGAL OPERATIONS MANAGER shunt Sunday, NPO after mid -PT/OT on board Sacral ulcer -Stage I, sacral pressure ulcer -wound care on board DVT -Lovenox 40sc
[2018-03-11] MEDS: Enoxaparin 40 mg Syringe SC SCH (09:53)
[2018-03-11] MEDS: Cholecalciferol 1,000 INTLU TAB PO SCH (09:54)
--- NOTE | 2018-03-12 08:23 | CP.PCM.PN ---
Subjective - Date & Time of Evaluation Date of Evaluation: 03/12/18 Time of Evaluation: 08:20 - Subjective Subjective: No acute overnight events. Pt states that she is ready for the surgery tomorrow. Ambulating with PT, good PO intake and remains afebrile. Objective - Vital Signs/Intake and Output Vital Signs (last 24 hours): Temp Pulse Resp BP Pulse Ox 97.2 F L 73 18 164/75 H 94 L 03/12/18 05:02 03/12/18 05:02 03/12/18 05:02 03/12/18 05:02 03/12/18 05:02 - Medications Medications: Current Medications Acetaminophen (Tylenol 325mg Tab) 650 mg PO Q6 PRN PRN Reason: Headache Cholecalciferol (Vitamin D) 1,000 intlu PO DAILY [facility] Last Admin: 03/11/18 09:54 Dose: 1,000 intlu Enoxaparin Sodium (Lovenox) 40 mg SC DAILY [facility] PRN Reason: Protocol Last Admin: 03/11/18 09:53 Dose: Not Given - Labs Labs: 03/11/18 04:20 03/08/18 05:00 PT 11.9 Seconds (9.8-13.1) 03/06/18 12:26 INR 1.1 03/06/18 12:26 APTT 31.4 Seconds (25.6-37.1) 03/06/18 12:26 - Constitutional Appears: No Acute Distress - Head Exam Head Exam: NORMAL INSPECTION - Eye Exam Eye Exam: Normal appearance - ENT Exam ENT Exam: Mucous Membranes Moist - Respiratory Exam Respiratory Exam: Clear to Ausculation Bilateral, NORMAL BREATHING PATTERN. absent: Wheezes - Cardiovascular Exam Cardiovascular Exam: REGULAR RHYTHM, +S1, +S2, Murmur (3/6 systolic ) - GI/Abdominal Exam GI & Abdominal Exam: Soft, Normal Bowel Sounds. absent: Tenderness - Extremities Exam Extremities Exam: Normal Inspection. absent: Calf Tenderness, Pedal Edema - Back Exam Back Exam: NORMAL INSPECTION. absent: CVA tenderness (L), CVA tenderness (R) - Neurological Exam Neurological Exam: Alert, Awake, Oriented x3 - Skin Skin Exam: Normal Color, Pallor Assessment and Plan - Assessment and Plan (Free Text) Assessment: Assessment/Plan: 78 YO female with PMHx of L nephrectomy due to renal CA, and hx of multiple falls is admitted for syncope and fall. 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 Pending YARD HOSTLER shunt with neurosurgery 03/13. Pt is medically optimized for planned procedure. Severe hydrocephalus -chronic, worsening -Syncope/Fall/ataxia, likely 2/2 NPH with deconditioning and poor nutrition -CT head 03/06: sig for severe ventricular dilatation, concerning for NPH ( hydrocephalus noted in previous CT head) -MRI head 03/07: age related changes, severe ventricular dilatation out of proportion to the sulcal prominence concerning for NPH. -Neuro on consult; MRI brain w/ contrast; consult neurosurgery for YARD HOSTLER shunt -Neurosurgery, case discussed with Dr. Chung; Planned for YARD HOSTLER shunt Sunday -NPO after midnight, IVF -PT/OT on board Sacral ulcer -Stage I, sacral pressure ulcer -wound care on board, dressing intact DVT -Lovenox 40sc
[2018-03-12] MEDS: Enoxaparin 40 mg Syringe SC SCH (08:28)
[2018-03-12] MEDS: Cholecalciferol 1,000 INTLU TAB PO SCH (08:41)
[2018-03-12] MEDS ORDERED: Sodium Chloride 0.9% 1,000 ML IV SCH (23:55)
[2018-03-13 06:24] LABS: HEMOGLOBIN 10.6 g/dL (12.0-16.0); MEAN CELL VOLUME 85.9 fl (81.0-99.0); MEAN CORPUSCULAR HGB CONC 32.6 g/dL (33.0-37.0); RBC 3.8 Mil/uL (3.80-5.20); RED CELL DISTRIBUTION WIDTH 16.1 % (11.5-14.5); WHITE BLOOD COUNT 6.1 K/uL (4.8-10.8)
[2018-03-13 06:44] LABS: PROTHROMBIN TIME 10.6 Seconds (9.8-13.1)
[2018-03-13 07:06] LABS: BLOOD UREA NITROGEN 31 mg/dl (7-17); CALCIUM 8.8 mg/dL (8.4-10.2); GFR NON-AFRICAN AMERICAN > 60
[2018-03-13] MEDS ORDERED: Succinylcholine 200 mg/10 ml Inj IV ONE (07:25)
[2018-03-13] MEDS ORDERED: Rocuronium 10 mg/ml (5 ml) ONE (07:25)
[2018-03-13] MEDS ORDERED: ePHEDrine 50 mg/ml Inj ONE (07:25)
[2018-03-13] MEDS ORDERED: Midazolam 2 MG/2 ML VIAL ONE (07:25)
[2018-03-13] MEDS ORDERED: Etomidate 20 mg/10ml Inj IV ONE (07:27)
[2018-03-13] MEDS ORDERED: Esmolol 100 mg/10ml Inj IV ONE (07:27)
[2018-03-13] MEDS ORDERED: Neostigmine 1:1000 (1 mg/ml) Inj ONE (07:32)
[2018-03-13] MEDS ORDERED: Lidocaine 1% w Epi 1:100,000 Inj ONE (07:40)
[2018-03-13] MEDS ORDERED: Gentamicin 80 mg/2mL Inj. ONE (07:40)
[2018-03-13] MEDS ORDERED: Bacitracin Ointment 30 GM TUBE ONE (07:40)
[2018-03-13] MEDS ORDERED: ceFAZolin IV 1 gm in Dextrose 0 GM/0 ML BAG IVPB ONE (07:40)
[2018-03-13] MEDS ORDERED: cefTRIAXone (Rocephin) 1 gm Inj ONE (07:40)
[2018-03-13] MEDS ORDERED: GELATIN SPONGE,ABSORB/PORCINE 1 EACH SPONGE TP ONE (07:41)
[2018-03-13] MEDS ORDERED: Thrombin Topical 5,000 Int Units Spray Kit ONE (07:41)
[2018-03-13] MEDS ORDERED: Propofol 10 mg/ml Inj (20 ML) ONE (07:47)
[2018-03-13] MEDS ORDERED: Vancomycin 1 g Inj ONE (07:52)
[2018-03-13] MEDS ORDERED: Lactated Ringer's 1,000 ML IV ONE (07:53)
[2018-03-13] MEDS ORDERED: Liquid Adhesive TOP ONE (08:49)
[2018-03-13] MEDS ORDERED: Sodium Chloride 0.9% 1,000 ML IV ONE (09:10)
[2018-03-13] MEDS ORDERED: HYDROmorphone 0.5 mg/0.5 ml ISec IVP PRN (09:15)
--- NOTE | 2018-03-13 10:40 | CP.PCM.PN ---
Subjective - Date & Time of Evaluation Date of Evaluation: 03/13/18 Time of Evaluation: 08:15 - Subjective Subjective: No acute overnight events. Pt NPO for surgery today. Pt states that she is a bit nervous this AM, but is ready for the surgery. Denies chest pain, dyspnea, palpitations, n/v/d/c and remains without fever. Objective - Vital Signs/Intake and Output Vital Signs (last 24 hours): Temp Pulse Resp BP Pulse Ox 98.6 F 71 20 122/64 99 03/13/18 10:10 03/13/18 10:10 03/13/18 10:10 03/13/18 10:10 03/13/18 10:10 Intake and Output: 03/13/18 03/13/18 06:59 18:59 Intake Total 500 Balance 500 - Medications Medications: Current Medications Acetaminophen (Tylenol 325mg Tab) 650 mg PO Q6 PRN PRN Reason: Headache Cholecalciferol (Vitamin D) 1,000 intlu PO DAILY [facility] Last Admin: 03/12/18 08:41 Dose: 1,000 intlu Enoxaparin Sodium (Lovenox) 40 mg SC DAILY [facility] PRN Reason: Protocol Last Admin: 03/12/18 08:28 Dose: Not Given Hydromorphone HCl (Dilaudid) 0.5 mg IVP Q10M PRN PRN Reason: Pain, severe (8-10) Stop: 03/13/18 11:21 Potassium Chloride/Dextrose/Sod Cl (Potassium Chl 20 Meq In D5-1/2ns) 1,000 mls @ 50 mls/hr IV .Q20H [facility] Ondansetron HCl (Zofran Inj) 4 mg IVP ONCE PRN PRN Reason: Nausea/Vomiting Stop: 03/13/18 11:21 Oxycodone/Acetaminophen (Percocet 5/325 Mg Tab) 1 tab PO Q4 PRN PRN Reason: Pain, Mild (1-3) Stop: 03/16/18 09:10 - Labs Labs: 03/13/18 05:50 03/13/18 05:50 PT 10.6 Seconds (9.8-13.1) 03/13/18 05:50 INR 1.0 03/13/18 05:50 APTT 31.0 Seconds (25.6-37.1) 03/13/18 05:50 - Constitutional Appears: No Acute Distress - Head Exam Head Exam: NORMAL INSPECTION - ENT Exam ENT Exam: Mucous Membranes Moist - Respiratory Exam Respiratory Exam: Clear to Ausculation Bilateral, NORMAL BREATHING PATTERN. absent: Wheezes - Cardiovascular Exam Cardiovascular Exam: REGULAR RHYTHM, +S1, +S2 - GI/Abdominal Exam GI & Abdominal Exam: Soft, Hyperactive Bowel Sounds. absent: Distended, Firm, Guarding, Tenderness - Extremities Exam Extremities Exam: absent: Calf Tenderness, Pedal Edema - Neurological Exam Neurological Exam: Alert, Awake Assessment and Plan - Assessment and Plan (Free Text) Assessment: Assessment/Plan: 78 YO female with PMHx of L nephrectomy due to renal CA, and hx of multiple falls is admitted for syncope and fall. 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 Pending HORTICULTURAL AGENT shunt with neurosurgery 03/13. Pt is medically optimized for planned procedure. Severe hydrocephalus -chronic, worsening -Syncope/Fall/ataxia, likely 2/2 NPH with deconditioning and poor nutrition -CT head 03/06: sig for severe ventricular dilatation, concerning for NPH ( hydrocephalus noted in previous CT head) -MRI head 03/07: age related changes, severe ventricular dilatation out of proportion to the sulcal prominence concerning for NPH. -Neuro on consult; consult neurosurgery for HORTICULTURAL AGENT shunt -Neurosurgery, case discussed with Dr. Chung; HORTICULTURAL AGENT shunt today -NPO -PT/OT on board Sacral ulcer -Stage I, sacral pressure ulcer -wound care on board, dressing intact DVT -Lovenox 40sc, held today for surgery
[2018-03-13 11:24] LABS: FLUID TYPE SPINAL FLUID
[2018-03-13 12:32] LABS: CSF APPEARANCE CLEAR/COLORLESS (CLEAR); CSF VOLUME 1 mL (0-1)
[2018-03-13 12:33] LABS: CSF MONO/MACROPHAGE 0 % (0-0)
--- NOTE | 2018-03-13 13:58 | CP.PCM.PCO ---
Assessment/Plan - Assessment and Plan (Free Text) Assessment: Post-op Exam Pt seen and examined in ICU. S/p FUELS SALES REPRESENTATIVE shunt with Neurosurgery Dr. Chung, POD0 Pt is awake, alert. States that she is feeling well, endorsing minimal pain. Surgery "more" intense then expected. VS stable, NAD and afebrile Dressing intact behind R ear and RUQ abdomen, no exudates noted Cardio: S1S2 no additional sounds Resp: clear to auscultation b/l Abd: +BS, no guarding, soft, mild RUQ tenderness Pt moving all ext -per surgery will keep pt in ICU overnight -PT/OT
[2018-03-13] MEDS: Potassium Ch 20mEq in D5-1/2NS 1,000 ML IV SCH (16:32)
[2018-03-13] MEDS: Enoxaparin 40 mg Syringe SC SCH (20:27)
[2018-03-13] MEDS: Oxycodone/Acetaminophen 5/325 mg Tab PO PRN (21:40)
[2018-03-14 05:31] LABS: BASO % 0.3 % (0.0-2.0); EOS # 0.2 K/uL (0.0-0.7); EOS % 2.1 % (0.0-4.0); HEMOGLOBIN 10.5 g/dL (12.0-16.0); LYMPH # 1.3 K/uL (1.0-4.3); LYMPH % 16.5 % (20.0-40.0); MEAN CELL VOLUME 85.5 fl (81.0-99.0); MEAN CORPUSCULAR HEMOGLOBIN 28.3 pg (27.0-31.0); MEAN CORPUSCULAR HGB CONC 33.1 g/dL (33.0-37.0); MEAN PLATELET VOLUME 7.9 fl (7.2-11.7); MONO # 1.2 K/uL (0.0-0.8); MONO % 15.7 % (0.0-10.0); NEUT # 5.2 K/uL (1.8-7.0); NEUT % 65.4 % (50.0-75.0); NRBC % 0.1 % (0.0-0.0); RBC 3.72 Mil/uL (3.80-5.20); RED CELL DISTRIBUTION WIDTH 16.5 % (11.5-14.5)
[2018-03-14 06:02] LABS: ALBUMIN 3.1 g/dL (3.5-5.0); CALCIUM 8.5 mg/dL (8.4-10.2)
--- NOTE | 2018-03-14 06:11 | OP ---
Copied To: Fredy Chung MD Attending MD: Fredy Chung MD PROCEDURE DATE: 03/13/2018 ANESTHESIOLOGIST: Flakito RICHARDSON, [place] ANESTHESIA: General PREOPERATIVE DIAGNOSIS: Normal pressure hydrocephalus. POSTOPERATIVE DIAGNOSIS: Normal pressure hydrocephalus. OPERATIVE PROCEDURE: Right ventriculoperitoneal shunt. SURGEON: Fredy Chung MD CO-SURGEON: Dr. Lasha Colby will dictate her part of the procedure independently. This part will deal with the cranial portion. DESCRIPTION OF PROCEDURE: The patient was brought to the operating room today and appropriately head turned to the left. The hair over the parietal area on the right was clipped and the head, neck, thorax, abdomen were prepped and draped in the usual manner. A small question mirtha incision was marked over the parietal instilled with lidocaine with epinephrine and incised sharply. Weitlaner retractor was used to elevate the flap. The pericranium was divided with electrocautery and a solitary holly hole was made. The dura was then coagulated and pierced and in a single pass, ventricular casting was passed into the ventricle with CSF came out under apparent normal pressure and was clear. The casting was cut and attached to the proximal end of Strata valve, which was preset to 1.5. The distal port of the valve had a piece of tubing on it, which was clamped. The drain was then tapped to the pericranium and by this time, Dr. Colby completed the abdominal opening and in a single passage, the shunt pass was passed from the abdomen into the cranium. The shunt tube was passed through the shunt passer and attached to the distal port of the valve, tied as was the proximal port with a 2-0 silk tie. The tube was then pulled into the abdomen until the valve was in proper place. The valve pumped and had spontaneous flow throughout and during the entire time of Dr. Colby's implantation into the abdomen and after that the shunt pumped well. CSF was sent for routine studies. Cranial wound was irrigated. The shunt valve was then tacked to the pericranium again with the 4-0 Nurolon and the scalp was reapproximated with a 3-0 Vicryl and skin jesus. Sterile dressing was applied to the head and the abdomen. At this point, the patient is awaiting extubation. It is too early to assess neurologically at this time. ESTIMATED BLOOD LOSS: Minimal. COUNTS: All counts correct. SPECIMEN: Spinal fluid. Fredy Chung MD
--- NOTE | 2018-03-14 08:29 | CP.PCM.PN ---
Subjective - Date & Time of Evaluation Date of Evaluation: 03/14/18 Time of Evaluation: 08:23 - Subjective Subjective: Ms. Núñez was seen and examined in the ICU. She remains alert, oriented x3 complains of soreness in the surgical site, but denies any headache, dizziness, blurred vision. She is able to move all extremities spontaneously. She is able to participate in a pleasant conversation. There was no untoward events overnight. Objective - Vital Signs/Intake and Output Vital Signs (last 24 hours): Temp Pulse Resp BP Pulse Ox 99.6 F 80 13 131/55 L 97 03/14/18 08:00 03/14/18 08:00 03/14/18 08:00 03/14/18 08:00 03/14/18 08:00 Intake and Output: 03/14/18 03/14/18 06:59 18:59 Intake Total 610 Output Total 400 Balance 210 - Medications Medications: Current Medications Acetaminophen (Tylenol 325mg Tab) 650 mg PO Q6 PRN PRN Reason: Headache Cholecalciferol (Vitamin D) 1,000 intlu PO DAILY [facility] Last Admin: 03/12/18 08:41 Dose: 1,000 intlu Enoxaparin Sodium (Lovenox) 40 mg SC DAILY [facility] PRN Reason: Protocol Last Admin: 03/13/18 20:27 Dose: Not Given Potassium Chloride/Dextrose/Sod Cl (Potassium Chl 20 Meq In D5-1/2ns) 1,000 mls @ 50 mls/hr IV .Q20H [facility] Last Admin: 03/13/18 16:32 Dose: 50 mls/hr Oxycodone/Acetaminophen (Percocet 5/325 Mg Tab) 1 tab PO Q4 PRN PRN Reason: Pain, Mild (1-3) Stop: 03/16/18 09:10 Last Admin: 03/13/18 21:40 Dose: 1 tab - Labs Labs: 03/14/18 05:00 03/14/18 05:00 PT 10.6 Seconds (9.8-13.1) 03/13/18 05:50 INR 1.0 03/13/18 05:50 APTT 31.0 Seconds (25.6-37.1) 03/13/18 05:50 - Constitutional Appears: No Acute Distress - Head Exam Head Exam: NORMAL INSPECTION - Eye Exam Pupil Exam: PERRL - Neurological Exam Neurological Exam: Alert, Awake, Oriented x3 Neuro motor strength exam: Left Upper Extremity: 4, Right Upper Extremity: 4, Left Lower Extremity: 4, Right Lower Extremity: 4 Additional comments: neurological unchanged from previous examination. Assessment and Plan (1) Hydrocephalus Assessment & Plan: Case discussed with Dr. Mercer, continue all current medical, physical, occupational therapies. Recommend to follow any neurosugical orders, keep head of bed elevated at least 30 degrees, neuro check, blood pressure control. Status: Chronic
[2018-03-14] MEDS: Cholecalciferol 1,000 INTLU TAB PO SCH ×2 (08:45→19:46)
[2018-03-14] MEDS: Oxycodone/Acetaminophen 5/325 mg Tab PO PRN ×2 (08:46→19:45)
--- NOTE | 2018-03-14 09:13 | CP.PCM.PN ---
<Catarina Luna - Last Filed: 03/14/18 16:56> Subjective - Date & Time of Evaluation Date of Evaluation: 03/14/18 Time of Evaluation: 09:13 - Subjective Subjective: S/p POWER DRIVEN BRUSH MAKER shunt, POD1 No acute overnight events. Pt endorsing pain in surgery site, but states that she does not like pain meds. Pain is tolerable. Pt was seen working with PT in ICU. Denies chest pain, dyspnea, n/v/d/c and fevers. Objective - Vital Signs/Intake and Output Vital Signs (last 24 hours): Temp Pulse Resp BP Pulse Ox 99.6 F 80 13 131/55 L 97 03/14/18 08:00 03/14/18 08:00 03/14/18 08:00 03/14/18 08:00 03/14/18 08:00 Intake and Output: 03/14/18 03/14/18 06:59 18:59 Intake Total 610 Output Total 400 Balance 210 - Medications Medications: Current Medications Acetaminophen (Tylenol 325mg Tab) 650 mg PO Q6 PRN PRN Reason: Headache Cholecalciferol (Vitamin D) 1,000 intlu PO DAILY [facility] Last Admin: 03/14/18 08:45 Dose: 1,000 intlu Enoxaparin Sodium (Lovenox) 40 mg SC DAILY [facility] PRN Reason: Protocol Last Admin: 03/13/18 20:27 Dose: Not Given Potassium Chloride/Dextrose/Sod Cl (Potassium Chl 20 Meq In D5-1/2ns) 1,000 mls @ 50 mls/hr IV .Q20H [facility] Last Admin: 03/13/18 16:32 Dose: 50 mls/hr Oxycodone/Acetaminophen (Percocet 5/325 Mg Tab) 1 tab PO Q4 PRN PRN Reason: Pain, Mild (1-3) Stop: 03/16/18 09:10 Last Admin: 03/14/18 08:46 Dose: 1 tab - Labs Labs: 03/14/18 05:00 03/14/18 05:00 PT 10.6 Seconds (9.8-13.1) 03/13/18 05:50 INR 1.0 03/13/18 05:50 APTT 31.0 Seconds (25.6-37.1) 03/13/18 05:50 - Constitutional Appears: No Acute Distress - Head Exam Additional comments: Surgical dressing noted R occiput, mild sero-sangunous fluid noted in the dressing - ENT Exam ENT Exam: Mucous Membranes Moist - Respiratory Exam Respiratory Exam: Clear to Ausculation Bilateral, NORMAL BREATHING PATTERN. absent: Wheezes - Cardiovascular Exam Cardiovascular Exam: REGULAR RHYTHM, +S1, +S2, Murmur (systolic murmur with radiation to the carotid) - GI/Abdominal Exam GI & Abdominal Exam: Soft, Normal Bowel Sounds. absent: Tenderness Additional comments: RUQ dressing intact, no exudates noted - Extremities Exam Extremities Exam: Normal Inspection. absent: Calf Tenderness, Pedal Edema - Back Exam Back Exam: NORMAL INSPECTION - Neurological Exam Neurological Exam: Alert, Awake, CN II-XII Intact - Psychiatric Exam Psychiatric exam: Normal Mood Assessment and Plan - Assessment and Plan (Free Text) Assessment: Assessment/Plan: 78 YO female with PMHx of L nephrectomy due to renal CA, and hx of multiple falls is admitted for syncope and fall. 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 S/p POWER DRIVEN BRUSH MAKER shunt, POD 1 Severe hydrocephalus -chronic, worsening -s/p POWER DRIVEN BRUSH MAKER shunt, POD1 -Syncope/Fall/ataxia, likely 2/2 NPH with deconditioning and poor nutrition -CT head 03/06: sig for severe ventricular dilatation, concerning for NPH ( hydrocephalus noted in previous CT head) -MRI head 03/07: age related changes, severe ventricular dilatation out of proportion to the sulcal prominence concerning for NPH. -Neuro on consult; consult neurosurgery for POWER DRIVEN BRUSH MAKER shunt -Fluid analysis is normal, neg for infections -Neurosurgery: s/p POWER DRIVEN BRUSH MAKER shunt POD 1, okay for d/c when stable -PT/OT on board Sacral ulcer -Stage I, sacral pressure ulcer -wound care on board, dressing intact DVT -Lovenox 40sc <Urmila Leavitt - Last Filed: 03/14/18 17:36> Objective - Vital Signs/Intake and Output Vital Signs (last 24 hours): Temp Pulse Resp BP Pulse Ox 97.7 F 69 12 127/49 L 95 03/14/18 16:00 03/14/18 16:00 03/14/18 16:00 03/14/18 16:00 03/14/18 16:00 Intake and Output: 03/14/18 03/14/18 06:59 18:59 Intake Total 610 590 Output Total 400 200 Balance 210 390 - Medications Medications: Current Medications Acetaminophen (Tylenol 325mg Tab) 650 mg PO Q6 PRN PRN Reason: Headache Cholecalciferol (Vitamin D) 1,000 intlu PO DAILY [facility] Last Admin: 03/14/18 08:45 Dose: 1,000 intlu Enoxaparin Sodium (Lovenox) 40 mg SC DAILY [facility] PRN Reason: Protocol Last Admin: 03/14/18 13:11 Dose: Not Given Oxycodone/Acetaminophen (Percocet 5/325 Mg Tab) 1 tab PO Q4 PRN PRN Reason: Pain, Mild (1-3) Stop: 03/16/18 09:10 Last Admin: 03/14/18 08:46 Dose: 1 tab - Labs Labs: 03/14/18 05:00 03/14/18 05:00 PT 10.6 Seconds (9.8-13.1) 03/13/18 05:50 INR 1.0 03/13/18 05:50 APTT 31.0 Seconds (25.6-37.1) 03/13/18 05:50 Attending/Attestation - Attestation I have personally seen and examined this patient.: Yes I have fully participated in the care of the patient.: Yes I have reviewed all pertinent clinical information, including history, physical exam and plan: Yes Notes (Text): 03/14/18 17:36 Seen, examined, and discussed with residents Dr. Luna. Agree with findings and plan as above.
--- NOTE | 2018-03-14 11:42 | CP.PCM.PN ---
Subjective - Date & Time of Evaluation Date of Evaluation: 03/14/18 Time of Evaluation: 11:41 - Subjective Subjective: pod1 a a ox3 no deficits mild davis wounds clean doing well ok d/c home or rehab as per pmd Objective - Vital Signs/Intake and Output Vital Signs (last 24 hours): Temp Pulse Resp BP Pulse Ox 99.6 F 82 19 144/66 94 L 03/14/18 08:00 03/14/18 10:00 03/14/18 10:00 03/14/18 10:00 03/14/18 10:00 Intake and Output: 03/14/18 03/14/18 06:59 18:59 Intake Total 610 390 Output Total 400 200 Balance 210 190 - Medications Medications: Current Medications Acetaminophen (Tylenol 325mg Tab) 650 mg PO Q6 PRN PRN Reason: Headache Cholecalciferol (Vitamin D) 1,000 intlu PO DAILY [facility] Last Admin: 03/14/18 08:45 Dose: 1,000 intlu Enoxaparin Sodium (Lovenox) 40 mg SC DAILY [facility] PRN Reason: Protocol Last Admin: 03/13/18 20:27 Dose: Not Given Oxycodone/Acetaminophen (Percocet 5/325 Mg Tab) 1 tab PO Q4 PRN PRN Reason: Pain, Mild (1-3) Stop: 03/16/18 09:10 Last Admin: 03/14/18 08:46 Dose: 1 tab - Labs Labs: 03/14/18 05:00 03/14/18 05:00 PT 10.6 Seconds (9.8-13.1) 03/13/18 05:50 INR 1.0 03/13/18 05:50 APTT 31.0 Seconds (25.6-37.1) 03/13/18 05:50
[2018-03-14] MEDS: Enoxaparin 40 mg Syringe SC SCH (13:11)
[2018-03-14] MEDS: Potassium Ch 20mEq in D5-1/2NS 1,000 ML IV SCH (19:46)
--- NOTE | 2018-03-15 07:04 | CP.PCM.PN ---
Subjective - Date & Time of Evaluation Date of Evaluation: 03/15/18 Time of Evaluation: 10:09 - Subjective Subjective: s/p POLYTECHNIC REGISTRAR shunt, POD2 No acute overnight events. Pt states that she had some pain in R side of her head and in the right side of her abdomen where the procedure was. Pt states that pain is well controlled with pain meds, but she does not like taking pain meds. Denies chest pain, dyspnea and palpitations, remains without fever. Objective - Vital Signs/Intake and Output Vital Signs (last 24 hours): Temp Pulse Resp BP Pulse Ox 98.6 F 71 12 145/66 97 03/15/18 04:00 03/15/18 06:00 03/15/18 06:00 03/15/18 04:00 03/15/18 06:00 Intake and Output: 03/15/18 03/15/18 06:59 18:59 Intake Total 70 Output Total 175 Balance -105 - Medications Medications: Current Medications Acetaminophen (Tylenol 325mg Tab) 650 mg PO Q6 PRN PRN Reason: Headache Cholecalciferol (Vitamin D) 1,000 intlu PO DAILY [facility] Last Admin: 03/14/18 19:46 Dose: Not Given Enoxaparin Sodium (Lovenox) 40 mg SC DAILY [facility] PRN Reason: Protocol Last Admin: 03/14/18 13:11 Dose: Not Given Oxycodone/Acetaminophen (Percocet 5/325 Mg Tab) 1 tab PO Q4 PRN PRN Reason: Pain, Mild (1-3) Stop: 03/16/18 09:10 Last Admin: 03/14/18 19:45 Dose: 1 tab - Labs Labs: 03/14/18 05:00 03/14/18 05:00 PT 10.6 Seconds (9.8-13.1) 03/13/18 05:50 INR 1.0 03/13/18 05:50 APTT 31.0 Seconds (25.6-37.1) 03/13/18 05:50 - Constitutional Appears: No Acute Distress - Head Exam Head Exam: NORMAL INSPECTION Additional comments: Surgical dressing noted R occiput, mild sero-sangunous fluid noted in the dressing - ENT Exam ENT Exam: Mucous Membranes Moist - Respiratory Exam Respiratory Exam: Clear to Ausculation Bilateral, NORMAL BREATHING PATTERN. absent: Wheezes - Cardiovascular Exam Cardiovascular Exam: REGULAR RHYTHM, +S1, +S2, Murmur - GI/Abdominal Exam GI & Abdominal Exam: Soft, Tenderness (mild RUQ by surgery ), Normal Bowel Sounds. absent: Distended, Guarding Additional comments: Dressing intact from POLYTECHNIC REGISTRAR shunt - Back Exam Back Exam: NORMAL INSPECTION - Neurological Exam Neurological Exam: Alert, Awake Additional comments: Moving all ext Assessment and Plan - Assessment and Plan (Free Text) Assessment: Assessment/Plan: 78 YO female with PMHx of L nephrectomy due to renal CA, and hx of multiple falls is admitted for syncope and fall. 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 S/p POLYTECHNIC REGISTRAR shunt, POD2 Severe hydrocephalus -chronic, worsening -s/p POLYTECHNIC REGISTRAR shunt, POD2 -Syncope/Fall/ataxia, likely 2/2 NPH with deconditioning and poor nutrition -CT head 03/06: sig for severe ventricular dilatation, concerning for NPH ( hydrocephalus noted in previous CT head) -MRI head 03/07: age related changes, severe ventricular dilatation out of proportion to the sulcal prominence concerning for NPH. -Neuro on consult; consult neurosurgery for POLYTECHNIC REGISTRAR shunt -Fluid analysis is normal, neg for infections -Neurosurgery: s/p POLYTECHNIC REGISTRAR shunt POD 2, okay for d/c when stable -Neurology: cleared by neurology -PT/OT on board; recommendation is for acute rehab Sacral ulcer -Stage I, sacral pressure ulcer -wound care on board, dressing intact DVT -Lovenox 40sc
[2018-03-15 08:02] VITALS: BP 171/69; RESP 13; O2SAT 98
--- NOTE | 2018-03-15 08:20 | CP.PCM.PN ---
Subjective - Date & Time of Evaluation Date of Evaluation: 03/15/18 Time of Evaluation: 08:20 - Subjective Subjective: Ms. Núñez was seen and examined in the ICU. She remains alert, oriented x3, surgical site intact. She denies any headache, dizziness, blurred vision. She is able to move all extremities spontaneously, but claims of feeling weak and unsteady. She is able to participate in a pleasant conversation. There was no untoward events overnight. Objective - Vital Signs/Intake and Output Vital Signs (last 24 hours): Temp Pulse Resp BP Pulse Ox 98.9 F 80 13 171/69 H 98 03/15/18 08:00 03/15/18 08:00 03/15/18 08:00 03/15/18 08:00 03/15/18 08:00 Intake and Output: 03/15/18 03/15/18 06:59 18:59 Intake Total 70 Output Total 175 Balance -105 - Medications Medications: Current Medications Acetaminophen (Tylenol 325mg Tab) 650 mg PO Q6 PRN PRN Reason: Headache Cholecalciferol (Vitamin D) 1,000 intlu PO DAILY [facility] Last Admin: 03/14/18 19:46 Dose: Not Given Enoxaparin Sodium (Lovenox) 40 mg SC DAILY [facility] PRN Reason: Protocol Last Admin: 03/14/18 13:11 Dose: Not Given Oxycodone/Acetaminophen (Percocet 5/325 Mg Tab) 1 tab PO Q4 PRN PRN Reason: Pain, Mild (1-3) Stop: 03/16/18 09:10 Last Admin: 03/14/18 19:45 Dose: 1 tab - Labs Labs: 03/14/18 05:00 03/14/18 05:00 PT 10.6 Seconds (9.8-13.1) 03/13/18 05:50 INR 1.0 03/13/18 05:50 APTT 31.0 Seconds (25.6-37.1) 03/13/18 05:50 - Constitutional Appears: No Acute Distress - Head Exam Head Exam: NORMAL INSPECTION - Eye Exam Pupil Exam: PERRL - Neurological Exam Neurological Exam: Alert, Awake, Oriented x3 Neuro motor strength exam: Left Upper Extremity: 4, Right Upper Extremity: 4, Left Lower Extremity: 4, Right Lower Extremity: 4 Additional comments: neurological unchanged from previous examination. Assessment and Plan (1) Hydrocephalus Assessment & Plan: Case discussed with Dr. Mercer, continue all current medical, physical, occupational therapies. Recommend to follow any neurosugical orders, keep head of bed elevated at least 30 degrees, neuro check, blood pressure control.May d/ c to a rehab facility. Status: Chronic
[2018-03-15] MEDS: Enoxaparin 40 mg Syringe SC SCH (08:39)
[2018-03-15] MEDS: Cholecalciferol 1,000 INTLU TAB PO SCH (08:40)
[2018-03-15] MEDS: Oxycodone/Acetaminophen 5/325 mg Tab PO PRN ×2 (08:41→15:12)
[2018-03-15 09:09] LABS: BASO % 0.7 % (0.0-2.0); EOS # 0.2 K/uL (0.0-0.7); EOS % 2.3 % (0.0-4.0); HEMOGLOBIN 10.7 g/dL (12.0-16.0); LYMPH # 1.4 K/uL (1.0-4.3); LYMPH % 19.8 % (20.0-40.0); MEAN CELL VOLUME 85.3 fl (81.0-99.0); MEAN CORPUSCULAR HEMOGLOBIN 28.4 pg (27.0-31.0); MEAN CORPUSCULAR HGB CONC 33.3 g/dL (33.0-37.0); MEAN PLATELET VOLUME 8.1 fl (7.2-11.7); MONO # 1.1 K/uL (0.0-0.8); MONO % 15.4 % (0.0-10.0); NEUT # 4.3 K/uL (1.8-7.0); NEUT % 61.8 % (50.0-75.0); RBC 3.75 Mil/uL (3.80-5.20); RED CELL DISTRIBUTION WIDTH 16.1 % (11.5-14.5)
[2018-03-15 10:43] VITALS: PULSE 82
[2018-03-15 11:41] VITALS: TEMP 98.3
--- NOTE | 2018-03-15 13:15 | CP.PCM.DIS ---
<Catarina Luna - Last Filed: 03/15/18 13:16> Provider - Provider Date of Admission: 03/06/18 14:07 Attending physician: Mercy Wallis MD Time Spent in preparation of Discharge (in minutes): 35 Diagnosis - Discharge Diagnosis (1) Dehydration Status: Acute (2) Hydrocephalus Status: Chronic (3) Fall Status: Acute Hospital Course - Lab Results Lab Results: Micro Results 03/13/18 14:00 Naris MRSA Culture (Admit) - Final MRSA NOT DETECTED Most Recent Lab Values WBC 7.0 K/uL (4.8-10.8) 03/15/18 08:30 RBC 3.75 Mil/uL (3.80-5.20) L 03/15/18 08:30 Hgb 10.7 g/dL (12.0-16.0) L 03/15/18 08:30 Hct 32.0 % (34.0-47.0) L 03/15/18 08:30 MCV 85.3 fl (81.0-99.0) 03/15/18 08:30 MCH 28.4 pg (27.0-31.0) 03/15/18 08:30 MCHC 33.3 g/dL (33.0-37.0) 03/15/18 08:30 RDW 16.1 % (11.5-14.5) H 03/15/18 08:30 Plt Count 230 K/uL (130-400) 03/15/18 08:30 MPV 8.1 fl (7.2-11.7) 03/15/18 08:30 Neut % (Auto) 61.8 % (50.0-75.0) 03/15/18 08:30 Lymph % (Auto) 19.8 % (20.0-40.0) L 03/15/18 08:30 [place] % (Auto) 15.4 % (0.0-10.0) H 03/15/18 08:30 Eos % (Auto) 2.3 % (0.0-4.0) 03/15/18 08:30 Baso % (Auto) 0.7 % (0.0-2.0) 03/15/18 08:30 Neut # (Auto) 4.3 K/uL (1.8-7.0) 03/15/18 08:30 Lymph # (Auto) 1.4 K/uL (1.0-4.3) 03/15/18 08:30 [place] # (Auto) 1.1 K/uL (0.0-0.8) H 03/15/18 08:30 Eos # (Auto) 0.2 K/uL (0.0-0.7) 03/15/18 08:30 Baso # (Auto) 0.0 K/uL (0.0-0.2) 03/15/18 08:30 PT 10.6 Seconds (9.8-13.1) 03/13/18 05:50 INR 1.0 03/13/18 05:50 APTT 31.0 Seconds (25.6-37.1) 03/13/18 05:50 Sodium 136 mmol/l (132-148) 03/14/18 05:00 Potassium 4.3 MMOL/L (3.6-5.0) 03/14/18 05:00 Chloride 104 mmol/L (98-107) 03/14/18 05:00 Carbon Dioxide 27 mmol/L (22-30) 03/14/18 05:00 Anion Gap 9 (10-20) L 03/14/18 05:00 BUN 22 mg/dl (7-17) H 03/14/18 05:00 Creatinine 1.1 mg/dl (0.7-1.2) 03/14/18 05:00 Est GFR ( Amer) 58 03/14/18 05:00 Est GFR (Non-Af Amer) 48 03/14/18 05:00 POC Glucose (mg/dL) 122 mg/dL (65-110) H 03/06/18 11:34 Random Glucose 116 mg/dL (65-105) H 03/14/18 05:00 Calcium 8.5 mg/dL (8.4-10.2) 03/14/18 05:00 Total Bilirubin 0.5 mg/dl (0.2-1.3) 03/14/18 05:00 AST 23 U/L (14-36) 03/14/18 05:00 ALT 25 U/L (9-52) 03/14/18 05:00 Alkaline Phosphatase 88 U/L (38-126) 03/14/18 05:00 Total Creatine Kinase 65 U/L (30-135) 03/07/18 05:25 Troponin I 0.0860 ng/mL (0.00-0.120) 03/06/18 12:26 Total Protein 6.1 G/DL (6.3-8.2) L 03/14/18 05:00 Albumin 3.1 g/dL (3.5-5.0) L 03/14/18 05:00 Globulin 3.0 gm/dL (2.2-3.9) 03/14/18 05:00 Albumin/Globulin Ratio 1.0 (1.0-2.1) 03/14/18 05:00 Vitamin B12 663 pg/mL (239-931) 03/07/18 05:25 TSH 3rd Generation 0.77 mIU/ML (0.46-4.68) 03/07/18 05:25 Urine Color Yellow (YELLOW) 03/06/18 13:56 Urine Clarity Slighty-cloudy (Clear) 03/06/18 13:56 Urine pH 6.0 (5.0-8.0) 03/06/18 13:56 Ur Specific [place] 1.024 (1.003-1.030) 03/06/18 13:56 Urine Protein 100 mg/dL (NEGATIVE) 03/06/18 13:56 Urine Glucose (UA) Neg mg/dL (Normal) 03/06/18 13:56 Urine Ketones 20 mg/dL (NEGATIVE) 03/06/18 13:56 Urine Blood Small (NEGATIVE) 03/06/18 13:56 Urine Nitrate Negative (NEGATIVE) 03/06/18 13:56 Urine Bilirubin Negative (NEGATIVE) 03/06/18 13:56 Urine Urobilinogen 0.2-1.0 mg/dL (0.2-1.0) 03/06/18 13:56 Ur Leukocyte Esterase Neg Zohra/uL (Negative) 03/06/18 13:56 Urine RBC (Auto) 4 /hpf (0-3) H 03/06/18 13:56 Urine Microscopic WBC 2 /hpf (0-5) 03/06/18 13:56 Ur Squamous Epith Cells 1 /hpf (0-5) 03/06/18 13:56 Hyaline Casts 3-5 /hpf (0-2) H 03/06/18 13:56 Fluid Type Spinal fluid 08/29/18 11:22 CSF Volume 1 mL (0-1) 03/13/18 11:22 CSF Appearance Clear/colorless (CLEAR) 03/13/18 11:22 CSF WBC 9.0 /mm3 (0.0-5.0) H 03/13/18 11:22 CSF RBC 57.0 /mm3 (0.0-0.0) H 03/13/18 11:22 CSF Total Cell Counted TEST NOT PERFORMED 03/13/18 11:22 CSF Neutrophils 1 % (0-0) H 03/13/18 11:22 CSF Lymphocytes 2.0 % (0-0) H 03/13/18 11:22 CSF Monos/Macrophages 0 % (0-0) 03/13/18 11:22 CSF Comment Volume 0.5 03/13/18 11:22 CSF Glucose 50 mg/dL (40-70) 03/13/18 11:22 CSF Total Protein 36.0 mg/dL (12-60) 03/13/18 11:22 Blood Type A NEGATIVE 03/06/18 13:20 Blood Type Confirm A NEGATIVE 03/06/18 13:20 Antibody Screen Negative 03/06/18 13:20 BBK History Checked No verified bt 03/06/18 13:20 - Hospital Course Hospital Course: 78 YO female with PMHx of L nephrectomy due to renal CA, and hx of multiple falls is admitted for syncope and fall. MRI/CT head was sig for severe hydrocephalus. Neurology and neurosurgery was consult, s/p SUPER[employer]OR [employer]PAR[employer] shunt, POD2. Pt is cleared by neurology and neurosurgery to be d/c, pt seen by PT/OT recs was d/ c to acute rehab. Will d/c pt to acute rehab for PT/OT. Discharge Exam - Head Exam Head Exam: NORMAL INSPECTION Additional comments: Surgical dressing noted R occiput, mild sero-sangunous fluid noted in the dressing - Eye Exam Eye Exam: Normal appearance - Respiratory Exam Respiratory Exam: Clear to PA & Lateral, NORMAL BREATHING PATTERN. absent: Wheezes - Cardiovascular Exam Cardiovascular Exam: REGULAR RHYTHM, +S1, +S2, Systolic Murmur - GI/Abdominal Exam GI & Abdominal Exam: Normal Bowel Sounds, Soft, Tenderness (mild, RUQ dressing intact ). absent: Distended, Guarding - Extremities Exam Extremities exam: normal inspection - Back Exam Back exam: NORMAL INSPECTION. absent: CVA tenderness (L), CVA tenderness (R) - Neurological Exam Neurological exam: Alert, Oriented x3 - Psychiatric Exam Psychiatric exam: Normal Mood Discharge Plan - Follow Up Plan Condition: FAIR Disposition: REHAB FACILITY/REHAB UNIT Additional Instructions: Pt going to acute rehab. Please follow up with PMD post discharge. <Urmila Leavitt - Last Filed: 03/15/18 18:15> Provider - Provider Date of Admission: 03/06/18 14:07 Attending physician: Mercy Wallis MD Hospital Course - Lab Results Lab Results: Micro Results 03/13/18 11:22 Cerebral Spinal Fluid Gram Stain - Final 03/13/18 14:00 Naris MRSA Culture (Admit) - Final MRSA NOT DETECTED Most Recent Lab Values WBC 7.0 K/uL (4.8-10.8) 03/15/18 08:30 RBC 3.75 Mil/uL (3.80-5.20) L 03/15/18 08:30 Hgb 10.7 g/dL (12.0-16.0) L 03/15/18 08:30 Hct 32.0 % (34.0-47.0) L 03/15/18 08:30 MCV 85.3 fl (81.0-99.0) 03/15/18 08:30 MCH 28.4 pg (27.0-31.0) 03/15/18 08:30 MCHC 33.3 g/dL (33.0-37.0) 03/15/18 08:30 RDW 16.1 % (11.5-14.5) H 03/15/18 08:30 Plt Count 230 K/uL (130-400) 03/15/18 08:30 MPV 8.1 fl (7.2-11.7) 03/15/18 08:30 Neut % (Auto) 61.8 % (50.0-75.0) 03/15/18 08:30 Lymph % (Auto) 19.8 % (20.0-40.0) L 03/15/18 08:30 [place] % (Auto) 15.4 % (0.0-10.0) H 03/15/18 08:30 Eos % (Auto) 2.3 % (0.0-4.0) 03/15/18 08:30 Baso % (Auto) 0.7 % (0.0-2.0) 03/15/18 08:30 Neut # (Auto) 4.3 K/uL (1.8-7.0) 03/15/18 08:30 Lymph # (Auto) 1.4 K/uL (1.0-4.3) 03/15/18 08:30 [place] # (Auto) 1.1 K/uL (0.0-0.8) H 03/15/18 08:30 Eos # (Auto) 0.2 K/uL (0.0-0.7) 03/15/18 08:30 Baso # (Auto) 0.0 K/uL (0.0-0.2) 03/15/18 08:30 PT 10.6 Seconds (9.8-13.1) 03/13/18 05:50 INR 1.0 03/13/18 05:50 APTT 31.0 Seconds (25.6-37.1) 03/13/18 05:50 Sodium 136 mmol/l (132-148) 03/14/18 05:00 Potassium 4.3 MMOL/L (3.6-5.0) 03/14/18 05:00 Chloride 104 mmol/L (98-107) 03/14/18 05:00 Carbon Dioxide 27 mmol/L (22-30) 03/14/18 05:00 Anion Gap 9 (10-20) L 03/14/18 05:00 BUN 22 mg/dl (7-17) H 03/14/18 05:00 Creatinine 1.1 mg/dl (0.7-1.2) 03/14/18 05:00 Est GFR ( Amer) 58 03/14/18 05:00 Est GFR (Non-Af Amer) 48 03/14/18 05:00 POC Glucose (mg/dL) 122 mg/dL (65-110) H 03/06/18 11:34 Random Glucose 116 mg/dL (65-105) H 03/14/18 05:00 Calcium 8.5 mg/dL (8.4-10.2) 03/14/18 05:00 Total Bilirubin 0.5 mg/dl (0.2-1.3) 03/14/18 05:00 AST 23 U/L (14-36) 03/14/18 05:00 ALT 25 U/L (9-52) 03/14/18 05:00 Alkaline Phosphatase 88 U/L (38-126) 03/14/18 05:00 Total Creatine Kinase 65 U/L (30-135) 03/07/18 05:25 Troponin I 0.0860 ng/mL (0.00-0.120) 03/06/18 12:26 Total Protein 6.1 G/DL (6.3-8.2) L 03/14/18 05:00 Albumin 3.1 g/dL (3.5-5.0) L 03/14/18 05:00 Globulin 3.0 gm/dL (2.2-3.9) 03/14/18 05:00 Albumin/Globulin Ratio 1.0 (1.0-2.1) 03/14/18 05:00 Vitamin B12 663 pg/mL (239-931) 03/07/18 05:25 TSH 3rd Generation 0.77 mIU/ML (0.46-4.68) 03/07/18 05:25 Urine Color Yellow (YELLOW) 03/06/18 13:56 Urine Clarity Slighty-cloudy (Clear) 03/06/18 13:56 Urine pH 6.0 (5.0-8.0) 03/06/18 13:56 Ur Specific [place] 1.024 (1.003-1.030) 03/06/18 13:56 Urine Protein 100 mg/dL (NEGATIVE) 03/06/18 13:56 Urine Glucose (UA) Neg mg/dL (Normal) 03/06/18 13:56 Urine Ketones 20 mg/dL (NEGATIVE) 03/06/18 13:56 Urine Blood Small (NEGATIVE) 03/06/18 13:56 Urine Nitrate Negative (NEGATIVE) 03/06/18 13:56 Urine Bilirubin Negative (NEGATIVE) 03/06/18 13:56 Urine Urobilinogen 0.2-1.0 mg/dL (0.2-1.0) 03/06/18 13:56 Ur Leukocyte Esterase Neg Zohra/uL (Negative) 03/06/18 13:56 Urine RBC (Auto) 4 /hpf (0-3) H 03/06/18 13:56 Urine Microscopic WBC 2 /hpf (0-5) 03/06/18 13:56 Ur Squamous Epith Cells 1 /hpf (0-5) 03/06/18 13:56 Hyaline Casts 3-5 /hpf (0-2) H 03/06/18 13:56 Fluid Type Spinal fluid 03/13/18 11:22 CSF Volume 1 mL (0-1) 03/13/18 11:22 CSF Appearance Clear/colorless (CLEAR) 03/13/18 11:22 CSF WBC 9.0 /mm3 (0.0-5.0) H 03/13/18 11:22 CSF RBC 57.0 /mm3 (0.0-0.0) H 03/13/18 11:22 CSF Total Cell Counted TEST NOT PERFORMED 03/13/18 11:22 CSF Neutrophils 1 % (0-0) H 03/13/18 11:22 CSF Lymphocytes 2.0 % (0-0) H 03/13/18 11:22 CSF Monos/Macrophages 0 % (0-0) 03/13/18 11:22 CSF Comment Volume 0.5 03/13/18 11:22 CSF Glucose 50 mg/dL (40-70) 03/13/18 11:22 CSF Total Protein 36.0 mg/dL (12-60) 03/13/18 11:22 Blood Type A NEGATIVE 03/06/18 13:20 Blood Type Confirm A NEGATIVE 03/06/18 13:20 Antibody Screen Negative 03/06/18 13:20 BBK History Checked No verified bt 03/06/18 13:20 Attending/Attestation - Attestation I have personally seen and examined this patient.: Yes I have fully participated in the care of the patient.: Yes I have reviewed all pertinent clinical information, including history, physical exam and plan: Yes Notes (Text): 03/15/18 18:15 Seen, examined, and discussed with residents Drs. Le and Cheryl. Agree with findings and plan as above.
== END 2018-03-15 15:45 | DRG 33 ==
LOC: H.ER 11:05 → H.ERHOLD 14:07 → H.TEL 21:07 → H.MEDSURG1 03-12 12:00 → H.ICU/CCU 03-13 10:44
PROVIDERS: ADMIT Family Medicine Geriatric Medicine; ATTEND Family Medicine Geriatric Medicine
PROC: 00160J6 Bypass Cerebral Ventricle to Peritoneal Cavity with Synthetic Substitute, Open Approach (ICD-10-PCS; principal; 2018-03-13 07:45)
DX: G91.2 (Idiopathic) normal pressure hydrocephalus (principal); E87.6 Hypokalemia; E86.0 Dehydration; L89.151 Pressure ulcer of sacral region, stage 1; I48.91 Unspecified atrial fibrillation; R26.81 Unsteadiness on feet; R29.6 Repeated falls; Z85.528 Personal history of other malignant neoplasm of kidney; Z90.5 Acquired absence of kidney; Z91.81 History of falling; Z87.891 Personal history of nicotine dependence